=== PATIENT | male | born 1970 | race Caucasian/White ===

== ENCOUNTER 2021-03-22 05:58 | Outpatient (REF) | payer BC, SELFPAY ==
[2021-03-22 07:08] LABS: Alanine Aminotransferase 27 U/L (0-40); Albumin Level 4.6 g/dL (3.5-5.0); Alkaline Phosphatase 57 U/L (39-117); Anion Gap 15 (12-20); Aspartate Amino Transferase 21 U/L (5-37); Bilirubin Total 0.5 mg/dL (0.0-1.0); Blood Urea Nitrogen 10 mg/dL (9-16); Calcium 9.8 mg/dL (8.4-10.2); Carbon Dioxide 24 mmol/L (22-29); Chloride 104 mmol/L (96-108); Cholesterol 128 mg/dL; Estimated Glomerular Filt Rate > 60; Glucose Fasting 145 mg/dL (60-99); HDL Cholesterol 47 mg/dL; LDL Cholesterol Calculated 36 mg/dl; Potassium 4.4 mmol/L (3.3-5.1); Sodium 139 mmol/L (135-145); Total Protein 8.1 g/dL (6.5-8.0); Triglycerides 227 mg/dL
[2021-03-22 13:36] LABS: Creatinine Urine 156.12 mg/dL; Microalbum/Creatinine Ratio Ur 19.8 ug/mg cr
[2021-03-26 13:37] LABS: Vitamin D 25-OH, D2 <4 ng/mL; Vitamin D 25-OH, D3 38 ng/mL; Vitamin D 25-OH, Total 38 ng/mL (30-100)
== END 2021-03-22 05:59 | disposition home or self-care (01) ==
LOC: HO.LAB 05:58
PROVIDERS: PCP Internal Medicine; Visit Provider Internal Medicine
DX: E11.9 Type 2 diabetes mellitus without complications (principal); E78.5 Hyperlipidemia, unspecified; E55.9 Vitamin D deficiency, unspecified
CPT/HCPCS: 36415; 80053; 80061; 82043; 82306

== ENCOUNTER → 2021-10-22 13:18 | Outpatient (BNVA) | payer BC, SELFPAY | PROVIDERS: PCP Internal Medicine; Referring Provider Internal Medicine; Visit Provider Nurse Practitioner Family ==

== ENCOUNTER 2021-11-27 07:48 | Day surgery (SDC) | payer BC, SELFPAY ==
--- NOTE | 2021-11-26 10:07 | HO.ANESPROP2 ---
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 Mother No problems noted. Surgical History Surgical History (Updated 11/21/21 @ 15:18 by Patsy Singh RN) H/O vascular surgery S/P CABG x 3 Status post right knee replacement Social History Social History Housing: Apartment Alcohol intake: current Alcohol intake frequency: does not drink Alcohol type: beer Patient Tobacco Use Status: Never used Tobacco e-Cigarette/Vaping Use: Never Used Second Hand Smoke Exposure: No Are you DNR?: No Advance Directives: No Advance Directives Information Provided: Yes service: Yes Current occupational status: employed Current occupational exposures/hazards: No Meds Allergies Allergy/AdvReac Type Severity Reaction Status Date / Time No Known Allergies Allergy Verified 10/22/21 13:27 Home Medications Medication Instructions Recorded Confirmed Last Taken Type cilostazol 50 mg tablet 50 mg PO BID 10/22/21 Unknown History Exam Exam Date and Time: November 26, 2021 1007 Narrative Narrative: EKG 11/2021 NSR @ 78, high lateral ST abn (no change from 2018) Assessment and Plan Assessment Anesthesia Assessment: Chart Reviewed Documented by User: Gary Del Real MD 11/27/21 09:39 [facility] Past Medical History Medical History CAD (coronary artery disease) Diabetes mellitus Dyslipidemia Essential hypertension GERD (gastroesophageal reflux disease) 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 Mother No problems noted. Family history of problems with anesthesia: No Surgical History Surgical History (Updated 11/21/21 @ 15:18 by Patsy Singh RN) H/O vascular surgery S/P CABG x 3 Status post right knee replacement History of Problems with Anesthesia: No Social History Social History Housing: Apartment Alcohol intake: current Alcohol intake frequency: does not drink Alcohol type: beer Patient Tobacco Use Status: Never used Tobacco e-Cigarette/Vaping Use: Never Used Second Hand Smoke Exposure: No Are you DNR?: No Advance Directives: No Advance Directives Information Provided: Yes service: Yes Current occupational status: employed Current occupational exposures/hazards: No Meds Allergies Allergy/AdvReac Type Severity Reaction Status Date / Time No Known Allergies Allergy Verified 10/22/21 13:27 Home Medications Medication Instructions Recorded Confirmed Last Taken Type cilostazol 50 mg tablet 50 mg PO BID 10/22/21 Unknown History Exam Airway Mallampati Class: III TM Dist: >3cm Neck ROM: Full Assessment and Plan Assessment Anesthesia Assessment: Anesthesia Plan Discussed Final Anesthetic Review Family History of Problems with Anesthesia: No History of Problems with Anesthesia: No NPO: Yes ASA Class: III Final Preanesthetic Review: No Changes in Pt Med Stat, Meds/Allgs Chart Reviewed, Consent Obtained/Reviewed and Anes Risks/Benef Reviewed Patient Risk: Intermediate Procedure Risk: Low Anesthetic Plan Anesthetic Plan: GA Disposition: Standard PACU
[2021-11-27 08:18] VITALS: BMI 31.9
[2021-11-27 08:31] VITALS: BP 150/87; PULSE 81; RESP 19; TEMP 36.6; O2SAT 97
[2021-11-27 08:37] LABS: Glucose, Whole Blood 193 mg/dL (60-115)
[2021-11-27] MEDS: Lactated Ringers 1,000 ML 100 ML IVCONT (08:40)
--- NOTE | 2021-11-27 09:09 | MHC.SHP ---
Pre-Procedural Eval Section A Date of Service: 11/27/21 Section B Chief Complaint: Screening Relevant Family History (Specify if Yes): No Relevant Social History: None Present Medications: see Short Stay Collaborative assessment Medical History: Significant History (CAD (coronary artery disease) Diabetes mellitus Dyslipidemia Essential hypertension GERD (gastroesophageal reflux disease) detention (current) use of insulin Neuropathy TOBY on CPAP Peripheral arterial disease) History of Previous Operations: Relevant previous surgery/procedure and date(s) (H/O vascular surgery S/P CABG x 3 Status post right knee replacement) Allergies: Allergies Allergy/AdvReac Type Severity Reaction Status Date / Time No Known Allergies Allergy Verified 10/22/21 13:27 Review of Systems Sugical H&P ROS: Negative: Constitution, Cardiovascular, Respiratory, Neurological, Psychiatric, Hem-Onc, Allergic/Immunologic, Gastrointestinal, Genitourinary, Musculoskeletal, Integumentary, Endocrine and Eyes/Ears/Nose/Throat Exam Surgical H&P Exam: Normal: HEENT, Normal: Heart, Normal: Lungs, Normal: Extremities, Normal: Abdomen, Normal: Skin and Normal: Neurological Plan Diagnosis/Plan: Unchanged I have reviewed the history and physical and performed a pertinent physical examination on my patient. No changes have occurred unless specified.
--- NOTE | 2021-11-27 09:10 | P.BOP_ITS ---
Brief Operative Note Date of Service: 11/27/21 Pre-op diagnosis: colon screening Post-op diagnosis: same Procedure: see op note Surgeon: Jose Alberto MD Anesthesia: MAC Was an Management Advisor used for this Procedure?: No Estimated blood loss (mL): 0 Condition: stable Disposition: PACU
--- NOTE | 2021-11-27 09:10 | W.PM.OPN ---
Operative Note Operative Note Date of Service: 11/27/21 Narrative: Operative Information Procedure Description: Colonoscopy COLONOSCOPY Instrument: Olympus variable stiffness adult scope 190L Colonoscopy Monitoring: Vital signs and clinical assessment, continuous EKG monitoring, Pulse oximetry, Carbon Dioxide monitoring and blood pressure monitoring were done throughout the procedure. Colon withdrawal time was 27 minutes. Procedure: The patient was placed in the left lateral decubitis position and pre-procedure medications were administered. After a digital rectal examination of the ano-rectum, the video colonoscope was inserted into the rectum and advanced through the colon to the cecum/TI. The colonoscope was slowly withdrawn in a retrograde panoramic fashion and the colon mucosa was carefully examined including a retroflexed view of the rectum. Findings and interventions are described below. Procedure Difficulty: easy Findings: Terminal Ileum-normal Cecum:normal Ascending Colon: normal Transverse Colon -normal Descending Colon:normal Sigmoid Colon: normal Rectum: Retroflexion with small internal hemorrhoids, grade I, x 1 flat polyp 11-12 mm, raised with ORISE and then removed with cold snare with 3 clips applied for hemostasis. Another 10 mm sessile polyp removed with cold snare. Anorectum - normal Colon preparation: Adrian Bowel Preparation Scale Right colon; 2 Transverse colon: 3 Left colon; 2 (0 = Unprepared colon segment with mucosa not seen due to solid stool that cannot be cleared. 1 = Portion of mucosa of the colon segment seen, but other areas of the colon segment not well seen due to staining, residual stool and/or opaque liquid. 2 = Minor amount of residual staining, small fragments of stool and/or opaque liquid, but mucosa of colon segment seen well. 3 = Entire mucosa of colon segment seen well with no residual staining, small fragments of stool or opaque liquid) Impression and Post Procedure Diagnosis: polyps internal hemorrhoids Plan: High fiber diet leaflet Avoid straining at stool, epsom salts and sitz bath, anusol supps or cream Repeat Colonoscopy in 3-5 years if adenomatous polyps, 10 yrs if hyperplastic or earlier if clinically indicated Above findings were reviewed with the patient and relevant handouts were provided if indicated.
[2021-11-27 10:16] VITALS: BP 155/75; PULSE 76; RESP 16; TEMP 36.2; O2SAT 97
[2021-11-27 10:32] VITALS: BP 144/76; PULSE 76; RESP 18; TEMP 36.2; O2SAT 98
== END 2021-11-27 11:01 | disposition home or self-care (01) ==
PROVIDERS: PCP Internal Medicine; Visit Provider Internal Medicine Gastroenterology
PROC: 0DJD8ZZ Inspection of Lower Intestinal Tract, Via Natural or Artificial Opening Endoscopic (ICD-10-PCS; CPT 45378; principal; 2021-11-27 09:20)
DX: Z12.11 Encounter for screening for malignant neoplasm of colon (principal); K62.1 Rectal polyp; K64.0 First degree hemorrhoids; I10 Essential (primary) hypertension; I25.810 Atherosclerosis of coronary artery bypass graft(s) without angina pectoris; I73.9 Peripheral vascular disease, unspecified; Z95.1 Presence of aortocoronary bypass graft; E78.5 Hyperlipidemia, unspecified; G47.33 Obstructive sleep apnea (adult) (pediatric); E11.9 Type 2 diabetes mellitus without complications; Z79.4 Long term (current) use of insulin; Z79.82 Long term (current) use of aspirin; Z79.02 Long term (current) use of antithrombotics/antiplatelets; Z79.899 Other long term (current) drug therapy; Z99.89 Dependence on other enabling machines and devices; Z96.651 Presence of right artificial knee joint
CPT/HCPCS: 45385; 45381; 82947; 88305

== ENCOUNTER → 2021-12-12 08:25 | Outpatient (BNVA) | payer BC, SELFPAY | PROVIDERS: PCP Internal Medicine; Referring Provider Internal Medicine; Visit Provider Nurse Practitioner Family | DX: Z13.89 Encounter for screening for other disorder (principal) ==

== ENCOUNTER 2022-04-23 07:29 | Outpatient (REF) | payer BC, SELFPAY ==
[2022-04-23 08:18] LABS: Alanine Aminotransferase 18 U/L (0-40); Albumin Level 4.8 g/dL (3.5-5.0); Alkaline Phosphatase 60 U/L (39-117); Anion Gap 16 (12-20); Aspartate Amino Transferase 18 U/L (5-37); Bilirubin Total 0.6 mg/dL (0.0-1.0); Blood Urea Nitrogen 10 mg/dL (9-16); Calcium 9.8 mg/dL (8.4-10.2); Carbon Dioxide 27 mmol/L (22-29); Chloride 104 mmol/L (96-108); Cholesterol 135 mg/dL; Estimated Glomerular Filt Rate > 60; Glucose Fasting 99 mg/dL (60-99); HDL Cholesterol 46 mg/dL; LDL Cholesterol Calculated 58 mg/dl; Potassium 4.2 mmol/L (3.3-5.1); Sodium 143 mmol/L (135-145); Total Protein 8.2 g/dL (6.5-8.0); Triglycerides 157 mg/dL
[2022-04-23 09:28] LABS: Creatinine Urine 94.99 mg/dL; Microalbum/Creatinine Ratio Ur 10.5 ug/mg cr
[2022-04-27 12:51] LABS: Vitamin D 25-OH, D2 <4 ng/mL; Vitamin D 25-OH, D3 45 ng/mL; Vitamin D 25-OH, Total 45 ng/mL (30-100)
== END 2022-04-23 07:30 | disposition home or self-care (01) ==
LOC: HO.LAB 07:29
PROVIDERS: PCP Internal Medicine; Visit Provider Internal Medicine
DX: E78.5 Hyperlipidemia, unspecified (principal); E55.9 Vitamin D deficiency, unspecified; E11.9 Type 2 diabetes mellitus without complications; Z79.4 Long term (current) use of insulin
CPT/HCPCS: 36415; 80053; 80061; 82043; 82306

== ENCOUNTER → 2022-09-20 06:12 | Outpatient (REF) | payer BC, SELFPAY ==
--- NOTE | ~2022-09-20 | XR_ITS ---
EXAMINATION: XR CHEST CLINICAL INFORMATION: Dyspnea COMPARISON: None TECHNIQUE: 2 views of the chest were obtained. FINDINGS: Low lung volumes. No focal consolidation or mass. No pleural effusion or pneumothorax. Sternal wires and mediastinal vascular clips. Multilevel degenerative changes of the thoracic spine. XR/XR chest 2V IMPRESSION: No acute pulmonary disease.
[2022-09-20 07:59] LABS: Creatinine Urine 44.68 mg/dL; Microalbum/Creatinine Ratio Ur 11.1 ug/mg cr
--- NOTE | 2022-09-20 08:15 | CA_ITS ---
Transthoracic Echocardiogram Patient (Last, First, Middle): Ricardo Farr H Gender: Male Date of : 1970 Age: 52 Procedure Date: 09/20/2022 Procedure Type: Transthoracic Echocardiogram Location: OP Height: 172.72 cm Weight: 95.26 kg BSA: 2.09 m2 Heart Rate: 70 bpm BP: 120 / 70 mmHg Instructor Extension Work: SB Referring MD: Mary Eubanks MD Symptoms: R01.1 - Cardiac murmur, unspecified Study Quality: Adequate w contrast ECG Rhythm: Sinus Conclusions: - The left ventricular systolic function is normal. The calculated ejection fraction is 58% by biplane method. - There is moderate septal asymmetric hypertrophy. - The apex segment is akinetic. - No obvious valvular pathology seen on this study. Findings Procedure Information Contrast agent, definity, is being given per protocol without apparent complications. Left Ventricle Normal left ventricular cavity size. The left ventricular systolic function is normal. The calculated ejection fraction is 58% by biplane method. There is no evidence of regional wall motion abnormalities. Diastolic function is normal for age. There is moderate septal asymmetric hypertrophy. Wall Motion Rest Echo Findings The apex segment is akinetic. Right Ventricle Normal right ventricular cavity size. There is mildly decreased right ventricular systolic function. Atria Both atria are normal in size. Aortic Valve There is a normal trileaflet aortic valve. There is no aortic valve stenosis. There is no aortic valve regurgitation. Mitral Valve The mitral valve appears normal. There is no mitral valve regurgitation. There is no mitral valve stenosis. Pulmonic Valve The pulmonic valve is likely normal. Tricuspid Valve There is trace tricuspid valve regurgitation. There is no evidence of pulmonary hypertension. Great Vessels The asc aorta is normal in size. Venous The inferior vena cava is normal in size and collapses greater than 50% with inspiration. Pericardium/Pleural There is no evidence of pericardial effusion. Prior Study Comparison Changes noted compared to prior study dated: 02/08/2016. see comments on wall motion. Recommendations, Care & Conclusions No obvious valvular pathology seen on this study. Measurements 2D Linear Measurements IVSd: 1.45 0.6-0.9/0.6-1.0 cm LVIDd: 5.29 3.9-5.3/4.2-5.9 cm LVIDd Index: 2.53 2.4-3.2/2.2-3.1 cm/m2 LVIDs: 3.51 2.0-3.6 cm LVPWd: 0.81 0.7-1.1 cm LA Diam: 4.10 2.7-3.8/3.0-4.0 cm LAIDs Index: 1.96 1.5-2.3 cm/m2 LV Mass: 293.98 67-162/88-224 g LV Mass Index: 140.66 43-95/49-115 g/m2 LVOT Diam: 2.10 3.0+(-)1.3 cm 2D Systolic Function EF 4C: 64.30 >55% EF 2C: 51.40 >55% EF BiP: 58.30 >55% Mitral Valve MV Pk E: 0.64 MV PK A: 0.64 MV Decel Time: 228.00 E/A: 1.00 E'Lateral: 12.20 E'Medial: 7.72 E/E' Med: 8.30 E/E' Lat: 5.20 PHT: 67.00 MVA PHT: 3.28 Decel Bertie: 2.80 Aortic Valve AoV Pk Dimitrios: 1.42 AoV Pk Grad: 8.00 DYLAN: 2.63 LVOT LVOT Pk Dimitrios: 1.08 LVOT Mn Dimitrios: 0.69 LVOT VTI: 0.19 LVOT Pk Grad: 5.00 LVOT Mn Grad: 2.00 LVOT Diam: 2.10 LVOT Area: 3.46 Diastolic Function MV Pk E: 0.64 MV Pk A: 0.64 E/A: 1.00 E'Medial: 7.72 E/E' Med: 8.30 E' Laterial: 12.20 E/E' Lat: 5.20 Right Ventricle TAPSE (mm): 15.80 TVS' Dimitrios: 11.10 Tricuspid Valve TR Pk Dimitrios: 2.30 TR Pk Grad: 21.00 RA Press: 3.00 RVSP: 24.00 Great Vessels Aorta Sinus of Valsalva: 3.10 2.0-3.5 cm Ao Asc: 3.40 2.1-3.4 cm Pulmonary Veins Pulm Vein S/D 1.30 Pulmonary Valve PV Pk Dimitrios: 1.19 Peak PV Grad: 6.00 Updated in Other Vendor System with Status of Final Bryce House MD electronically signed on 09/21/2022 3:14:55 PM with status of Final
[2022-09-20 08:17] LABS: Alanine Aminotransferase 23 U/L (0-40); Albumin Level 4.4 g/dL (3.5-5.0); Alkaline Phosphatase 62 U/L (39-117); Anion Gap 14 (12-20); Aspartate Amino Transferase 21 U/L (5-37); Bilirubin Total 0.5 mg/dL (0.0-1.0); Blood Urea Nitrogen 8 mg/dL (9-16); Calcium 9.9 mg/dL (8.4-10.2); Carbon Dioxide 29 mmol/L (22-29); Chloride 103 mmol/L (96-108); Cholesterol 125 mg/dL; Estimated Glomerular Filt Rate > 60; Glucose Fasting 102 mg/dL (60-99); HDL Cholesterol 47 mg/dL; LDL Cholesterol Calculated 38 mg/dl; Sodium 142 mmol/L (135-145); Total Protein 7.9 g/dL (6.5-8.0); Triglycerides 200 mg/dL
[2022-09-20 08:22] LABS: Vitamin D 25-OH Total 30.7 ng/mL (>30)
== END ==
LOC: HO.CARD 06:12
PROVIDERS: PCP Internal Medicine; Visit Provider Internal Medicine
DX: R01.1 Cardiac murmur, unspecified (principal); R06.00 Dyspnea, unspecified; E78.5 Hyperlipidemia, unspecified; E55.9 Vitamin D deficiency, unspecified; E11.9 Type 2 diabetes mellitus without complications; Z79.4 Long term (current) use of insulin
CPT/HCPCS: 36415; 71046; 80053; 80061; 82043; 82306; 93306; Q9957

== ENCOUNTER 2023-01-07 06:07 | Outpatient (REF) | payer BC, SELFPAY ==
[2023-01-07 08:18] LABS: Alanine Aminotransferase 21 U/L (0-40); Albumin Level 4.3 g/dL (3.5-5.0); Alkaline Phosphatase 59 U/L (39-117); Anion Gap 14 (12-20); Aspartate Amino Transferase 18 U/L (5-37); Bilirubin Total 0.8 mg/dL (0.0-1.0); Blood Urea Nitrogen 8 mg/dL (9-16); Calcium 9.2 mg/dL (8.4-10.2); Carbon Dioxide 27 mmol/L (22-29); Chloride 103 mmol/L (96-108); Cholesterol 121 mg/dL; Estimated Glomerular Filt Rate > 60; Glucose Fasting 159 mg/dL (60-99); HDL Cholesterol 43 mg/dL; LDL Cholesterol Calculated 32 mg/dl; Potassium 4.3 mmol/L (3.3-5.1); Sodium 140 mmol/L (135-145); Total Protein 7.4 g/dL (6.5-8.0); Triglycerides 233 mg/dL
[2023-01-07 09:27] LABS: Creatinine Urine 39.81 mg/dL; Microalbum/Creatinine Ratio Ur 17.5 ug/mg cr
== END 2023-01-07 06:08 | disposition home or self-care (01) ==
LOC: HO.LAB 06:07
PROVIDERS: PCP Internal Medicine; Visit Provider Internal Medicine
DX: E11.9 Type 2 diabetes mellitus without complications (principal); E78.5 Hyperlipidemia, unspecified; Z79.4 Long term (current) use of insulin
CPT/HCPCS: 36415; 80053; 80061; 82043

== ENCOUNTER 2023-06-19 16:51 | Outpatient (AMB) | payer BC, SELFPAY ==
--- NOTE | 2023-06-19 16:53 | MHC.PC.OV ---
Vital Signs 06/19/23 16:54 06/19/23 17:52 Height 5 ft 8 in Weight 214 lb BMI 32.5 BP 162/100 H 160/90 H Blood Pressure Location Lt brachial Lt brachial Position Sitting Sitting Intake Visit Reasons: 3m f/u Intake Note: Patient here for a 3 month follow up Style Advisor Required: No Accompanied by: Self / Same As Patient Allergies No Known Allergies Allergy (Verified 06/19/23 17:06) Medication List - Last Reconciled 06/19/23 by Mary Eubanks MD aspirin (Adult Low Dose Aspirin) 81 mg PO DAILY 90 days blood sugar diagnostic (OneTouch Ultra Test strips) Use 1 test strip three times a day carvedilol 6.25 mg PO BID 90 days cilostazol 50 mg PO BID 90 days clopidogrel 75 mg PO DAILY 90 days gabapentin 100 mg PO BID PRN 90 days glipizide ER 2.5 mg PO BID 90 days insulin glargine (Lantus Solostar U-100 Insulin) 57 units (0.57 mL) subcut DAILY 90 days lancets (ShoutfitTouch UltraSoft Lancets) Use 1 lancet three times a day losartan 50 mg PO DAILY 90 days metformin 1,000 mg PO BID 90 days omeprazole 20 mg PO DAILY 90 days pen needle, diabetic Use 1 pen needle once a day rosuvastatin 20 mg PO BEDTIME 90 days Tobacco use date assessed: 01/14/23 Dental Screening Dental Screen Date: 06/19/23 Did you have a dental visit in the last 12 months?: Yes Did you have a dental problem in the last 6 months where you did not have access to dental care?: No Was dental information given to patient?: Patient has dentist HPI HPI Comments History of Present Illness Details This is a 53-year-old male with diabetes mellitus type 2 on long-term current use of insulin, hypertension, hyperlipidemia, systolic congestive heart failure and peripheral arterial disease that comes today for follow-up on his conditions. A1c slightly elevated and I will increase insulin from 57 units to 60 units. Blood pressure elevated today and he did took his medication. He said that at home blood pressure is less than 140/90. He will be checking his blood pressure at home for the next 2 weeks and will contact me to let me know how the readings where. He does not want to come back in 3 weeks to be recheck by nurse navigator. Last LDL was within goal. Congestive heart failure is follow by cardiology and has not gain 5 lb in a week. Has peripheral arterial disease follow by vascular surgeon on cilostazol. No chest pain or shortness of breath. [facility] Medical History (Updated 06/20/23 @ 12:48 by Mary Eubanks MD) Internal hemorrhoid TOBY on CPAP Neuropathy detention (current) use of insulin CAD (coronary artery disease) Peripheral arterial disease Dyslipidemia GERD (gastroesophageal reflux disease) Essential hypertension Diabetes mellitus Surgical History Hx of colonoscopy H/O vascular surgery Status post right knee replacement S/P CABG x 3 Family History Father No problems noted. Mother No problems noted. Social History Housing: Apartment Alcohol intake: current Alcohol intake frequency: holidays/special occasions only Alcohol type: beer Patient Tobacco Use Status: Never used Tobacco e-Cigarette/Vaping Use: Never Used Second Hand Smoke Exposure: No service: Yes Current occupational status: employed Current occupational exposures/hazards: No Cognitive needs: No Hearing needs: No Vision needs: No Questionnaire Thrive Questionnaire Date Thrive assessed: 01/14/23 CHAVA-7 AMB Questionnaire CHAVA-7 Date CHAVA - 7 assessed: 01/14/23 Source: Developed by Drs. Sachin Muhammad, Sun Gallo, Srinivas Knott and colleagues, with an educational constantine from [employer]. Review of Systems Const All systems reviewed & are unremarkable except as noted in HPI and below Eyes Reports no additional complaints, Denies change in vision and Denies other visual disturbances Card Denies chest pain at rest, Denies chest pain with activity, Denies edema, Denies irregular heart rhythm, Denies claudication, Denies dyspnea, Denies dyspnea on exertion, Denies orthopnea, Denies paroxysmal nocturnal dyspnea and Denies slow heart rate Resp Denies cough, Denies dyspnea and Denies dyspnea on exertion GI Denies abdominal pain, Denies change in bowel habits, Denies excessive flatus, Denies nausea and Denies vomiting Denies urinary hesitancy, Denies urinary incontinence and Denies urinary urgency Musc Denies abnormal gait, Denies atrophy, Denies deformity and Denies limited range of motion Skin/Breast Denies bleeding lesions, Denies changing lesions and Denies rash Neuro Denies abnormal gait and Denies lack of coordination Physical exam (Primary Care) Vital Signs: Last Vital Signs BP 160/90 H 06/19/23 17:52 BMI result Body Mass Index 32.5 Tobacco/Smoking Status: Tobacco use Status Tobacco use date assessed 01/14/23 06/19/23 16:58 Patient Tobacco Use Status Never used Tobacco 06/19/23 16:58 e-Cigarette/Vaping Use Never Used 06/19/23 16:58 Thrive Assessment: Date of Thrive Assessment Date Thrive assessed 01/14/23 06/19/23 16:58 Eyes General: appearance normal, both eyes and all related structures Eyelids: Yes eyelids normal Conjunctivae: conjunctivae normal Neck Neck: Yes normal visual inspection and Yes supple Resp Effort & Inspection: normal respiratory effort Auscultation: clear to auscultation bilaterally Cardio Jugular venous distension: no JVD Rate: regular rate Rhythm: regular rhythm Heart sounds: S1 normal heart sound present and S2 normal heart sound present Extrem General: Yes full ROM Results AMB Hemoglobin A1c AMB Hemoglobin A1c 7.2 % Last Edit by QUINTON Winston on 06/19/23 17:07 Results Reviewed Results Reviewed: Laboratory Last Values Hgb A1c (Clinic) 7.2 % (4.0-6.0) H 06/19/23 17:06 Assessment and Plan Assessment & Plan (1) Systolic congestive heart failure: Code(s): I50.20 - Unspecified systolic (congestive) heart failure Plan: Continue carvedilol. Follow-up with Cardiology. The goal is to not gain 5 lb in a week. (2) Peripheral arterial disease: Code(s): I73.9 - Peripheral vascular disease, unspecified Plan: Continue cilostazol. Follow-up with vascular surgery. (3) Diabetes mellitus: Code(s): E11.9 - Type 2 diabetes mellitus without complications Qualifiers: Diabetes mellitus type: type 2 Diabetes mellitus long-term insulin use: with range conservationist use Diabetes mellitus complication status: without complication Qualified Code(s): E11.9 - Type 2 diabetes mellitus without complications; Z79.4 - detention (current) use of insulin Plan: Continue glipizide and metformin. Increase insulin from 57 units to 60 units. A1c goal is equal or less than 7%. (4) Essential hypertension: Code(s): I10 - Essential (primary) hypertension Plan: Continue losartan. Blood pressure goal is equal or less than 130/80. (5) Hyperlipidemia LDL goal <70: Code(s): E78.5 - Hyperlipidemia, unspecified Plan: Continue rosuvastatin. LDL goal is less than 70 P Orders: Orders AMB Hemoglobin A1c 06/19/23 E11.9 - Type 2 diabetes mellitus without complications Lipid Panel 4 Months E78.5 - Hyperlipidemia, unspecified Microalbumin, Random (w Creat) 4 Months E11.9 - Type 2 diabetes mellitus without complications NT-proBNP 4 Months I50.20 - Unspecified systolic (congestive) heart failure Comprehensive [place]. Panel Fast 4 Months I50.20 - Unspecified systolic (congestive) heart failure Referrals Orthopedics Referral M25.552 - Pain in left hip Medications: Changed From insulin glargine (Lantus Solostar U-100 Insulin) 57 units (0.57 mL) subcut DAILY 90 days 51.3 mL 3RF E11.9 - Type 2 diabetes mellitus without complications, Z79.4 - [employer] stitcher (current) use of insulin To insulin glargine (Lantus Solostar U-100 Insulin) 60 units (0.6 mL) subcut DAILY 90 days 54 mL 3RF E11.9 - Type 2 diabetes mellitus without complications, Z79.4 - detention (current) use of insulin Coding Level of Care Code Est Pt Level 4 (91235) Diagnoses Systolic congestive heart failure I50.20 Peripheral arterial disease I73.9 Type 2 diabetes mellitus without complication, with long-term current use of insulin E11.9; Z79.4 Diabetes mellitus type: type 2 Diabetes mellitus long-term insulin use: with long-term use Diabetes mellitus complication status: without complication Essential hypertension I10 Hyperlipidemia LDL goal <70 E78.5 Time Spent (min) 23
[2023-06-19 16:54] VITALS: BP 162/100; BMI 32.5
[2023-06-19 17:52] VITALS: BP 160/90
== END 2023-06-19 17:36 | disposition home or self-care (01) ==
PROVIDERS: PCP Internal Medicine; Visit Provider Internal Medicine
DX: E11.9 Type 2 diabetes mellitus without complications (principal)
CPT/HCPCS: 83036; 99214

== ENCOUNTER 2023-10-20 09:15 | Outpatient (AMB) | payer BC, SELFPAY ==
--- NOTE | 2023-10-20 09:37 | MHC.PC.OV ---
Vital Signs 10/20/23 09:39 10/20/23 10:51 Height 5 ft 8 in Weight 215 lb BMI 32.7 BP 146/80 H 145/80 H Blood Pressure Location Lt brachial Lt brachial Position Sitting Sitting Intake Visit Reasons: Annual Exam Intake Note: Patient here for an annual physical exam Passenger Car Inspector Required: No Accompanied by: Self / Same As Patient Allergies No Known Allergies Allergy (Verified 10/20/23 09:51) Medication List - Last Reconciled 10/20/23 by Mary Eubanks MD aspirin (Adult Low Dose Aspirin) 81 mg PO DAILY 90 days blood sugar diagnostic ([employer] Ultra Test strips) Use 1 test strip three times a day carvedilol 6.25 mg PO BID 90 days cilostazol 50 mg PO BID 90 days clopidogrel 75 mg PO DAILY 90 days gabapentin 100 mg PO BID PRN 90 days glipizide ER 2.5 mg PO BID 90 days insulin glargine (Lantus Solostar U-100 Insulin) 60 units (0.6 mL) subcut DAILY 90 days lancets Use 1 lancet three times a day losartan 50 mg PO DAILY 90 days metformin 1,000 mg PO BID 90 days omeprazole 20 mg PO DAILY 90 days pen needle, diabetic Use 1 pen needle once a day rosuvastatin 20 mg PO BEDTIME 90 days Tobacco use date assessed: 10/20/23 Dental Screening Dental Screen Date: 10/20/23 Did you have a dental visit in the last 12 months?: Yes Did you have a dental problem in the last 6 months where you did not have access to dental care?: No Was dental information given to patient?: Patient has dentist HPI HPI Comments History of Present Illness Details This is a 53-year-old male with diabetes mellitus type 2 on long-term current use of insulin, systolic congestive heart failure and peripheral arterial disease that comes today for his physical exam. A1c elevated and I will replace glipizide with Jardiance. He follows with cardiology for his congestive heart failure and has not gain 5 lb in a week. Had vascular surgery in July 2023 which has markedly improved his symptoms. Blood pressure elevated today and will be recheck in 3 weeks by nurse navigator. Last colonoscopy was 2021 showing hyperplastic polyp. No chest pain. REPLACED BY [facility] Medical History (Updated 10/20/23 @ 10:05 by Mary Eubanks MD) Internal hemorrhoid TOBY on CPAP Neuropathy FDC (current) use of insulin CAD (coronary artery disease) Peripheral arterial disease Dyslipidemia GERD (gastroesophageal reflux disease) Essential hypertension Diabetes mellitus Surgical History (Updated 10/20/23 @ 09:58 by Mary Eubanks MD) Hx of colonoscopy H/O vascular surgery Status post right knee replacement S/P CABG x 3 Family History Father No problems noted. Mother No problems noted. Social History Housing: Apartment Alcohol intake: current Alcohol intake frequency: holidays/special occasions only Alcohol type: beer Patient Tobacco Use Status: Never used Tobacco e-Cigarette/Vaping Use: Never Used Second Hand Smoke Exposure: No service: Yes Current occupational status: employed Current occupational exposures/hazards: No Cognitive needs: No Hearing needs: No Vision needs: No Questionnaire PHQ-9 Over the last 2 weeks, how often have you been bothered by any of the following problems? 1. Little interest or pleasure in doing things: not at all 2. Feeling down, depressed, or hopeless: not at all 3. Trouble falling or staying asleep, or sleeping too much: not at all 4. Feeling tired or having little energy: not at all 5. Poor appetite or overeating: not at all 6. Feeling bad about yourself - or that you are a failure or have let yourself or your family down: not at all 7. Trouble concentrating on things, such as reading the newspaper or watching television: not at all 8. Moving or speaking so slowly that other people could have noticed. Or the opposite - being so fidgety or restless that you have been moving around a lot more than usual: not at all 9. Thoughts that you would be better off or of hurting yourself in some way: not at all Total score: 0 Depression Screening Interpretation: Negative Depression Screening Done: Yes 17513 - PHQ-9 Billing: Yes Source: Developed by Drs. Sachin Muhammad, Sun Gallo, Srinivas Knott and colleagues, with an educational constantine from [employer]. Thrive Questionnaire Date Thrive assessed: 10/20/23 I am a: Patient What is your living situation today?: I have a steady place to live Within the past 12 months, did the food you bought not last and you didn't have the money to get more?: Never true Within the past 12 months, did you worry whether your food would run out before you got money to buy more?: Never true Do you have trouble paying for medicines?: No Do you have trouble getting transportation to medical appointments?: No Do you have trouble paying your heating and electricity bill?: No Do you have trouble taking care of your child, family member or friend?: No Do you have trouble with day-to-day activities such as bathing, preparing meals, shopping, managing finances, etc.?: No Are you currently unemployed and looking for a job?: No Are you interested in more education?: No Please select the resources that you would like help with: None Currently or been in a relationship where the following occur: no concerns reported THRIVE Score: 0 AUDIT C Alcohol Use Questionnaire (AUDIT-C) 1. How often do you have a drink containing alcohol?: Monthly or less 2. How many drinks containing alcohol do you have on a typical day when you are drinking?: 1 or 2 3. How often do you have six or more drinks on one occasion?: Never Total Score: 1 Score Reviewed/Action Taken: No CHAVA-7 AMB Questionnaire CHAVA-7 Date CHAVA - 7 assessed: 10/20/23 Feeling nervous, anxious, or on edge: 0 = Not at all Not being able to stop or control worryin = Not at all Worrying too much about different things: 0 = Not at all Trouble relaxin = Not at all Being so restless that it is hard to sit still: 0 = Not at all Becoming easily annoyed or irritable: 0 = Not at all Feeling afraid as if something awful might happen: 0 = Not at all Total CHAVA-7 score (0-4 normal; 5-9 mild; 10-14 moderate; 15-21 severe): 0 Source: Developed by Drs. Sachin Muhammad, Sun Gallo, Srinivas Knott and colleagues, with an educational constantine from [employer]. CHAVA-7 Assessment Billing CHAVA-7 Assessment Tool: CHAVA-7 Assessment 01393 Review of Systems Const All systems reviewed & are unremarkable except as noted in HPI and below Eyes Reports no additional complaints, Denies change in vision and Denies other visual disturbances Card Denies chest pain at rest, Denies chest pain with activity, Denies edema, Denies irregular heart rhythm, Denies claudication, Denies dyspnea, Denies dyspnea on exertion, Denies orthopnea, Denies paroxysmal nocturnal dyspnea and Denies slow heart rate Resp Denies cough, Denies dyspnea and Denies dyspnea on exertion GI Denies abdominal pain, Denies change in bowel habits, Denies excessive flatus, Denies nausea and Denies vomiting Denies urinary hesitancy, Denies urinary incontinence and Denies urinary urgency Musc Denies abnormal gait, Denies atrophy, Denies deformity and Denies limited range of motion Skin/Breast Denies bleeding lesions, Denies changing lesions and Denies rash Neuro Denies abnormal gait, Denies behavioral changes, Denies confusion and Denies lack of coordination Psych Denies behavioral changes and Denies confusion Physical exam (Primary Care) Vital Signs: Last Vital Signs BP 145/80 H 10/20/23 10:51 BMI result Body Mass Index 32.7 Tobacco/Smoking Status: Tobacco use Status Tobacco use date assessed 10/20/23 10/20/23 09:50 Patient Tobacco Use Status Never used Tobacco 10/20/23 09:50 e-Cigarette/Vaping Use Never Used 10/20/23 09:50 PHQ-9: PHQ-9 Score PHQ-9: Total score 0 10/20/23 10:52 Depression Screening Interpretation: Negative Thrive Assessment: Date of Thrive Assessment Date Thrive assessed 10/20/23 10/20/23 09:50 Currently or been in a relationship where the following occur: no concerns reported Const General: No confusion Orientation/consciousness: patient oriented x3 and No confusion HENMT Head: Yes normal to inspection, Yes normocephalic and Yes atraumatic Ears: external ears normal Eyes General: appearance normal, both eyes and all related structures Eyelids: Yes eyelids normal Conjunctivae: conjunctivae normal Neck Neck: Yes normal visual inspection and Yes supple Resp Effort & Inspection: normal respiratory effort Auscultation: clear to auscultation bilaterally Cardio Jugular venous distension: no JVD Rate: regular rate Rhythm: regular rhythm Heart sounds: S1 normal heart sound present and S2 normal heart sound present GI Inspection: Yes normal to inspection Palpation (GI): Soft to palpation and nontender Auscultation: normal bowel sounds Skin General skin exam: no rashes or lesions noted Neuro General: patient oriented x3, no focal motor deficits and No confusion Extrem General: Yes full ROM Psych Appearance: grossly normal Results AMB Hemoglobin A1c AMB Hemoglobin A1c 7.2 % Last Edit by QUINTON Winston on 10/20/23 09:50 Results Reviewed Results Reviewed: Laboratory Last Values Hgb A1c (Clinic) 7.2 % (4.0-6.0) H 10/20/23 09:37 Assessment and Plan Assessment & Plan (1) Physical exam: Code(s): Z00.00 - Encounter for general adult medical examination without abnormal findings Plan: Repeat in a year. (2) Systolic congestive heart failure: Code(s): I50.20 - Unspecified systolic (congestive) heart failure Plan: Continue carvedilol. Follow-up with Cardiology. The goal is to not gain 5 lb in a week. (3) Peripheral arterial disease: Code(s): I73.9 - Peripheral vascular disease, unspecified Plan: Continue cilostazol. Follow-up with vascular surgery. (4) Diabetes mellitus: Code(s): E11.9 - Type 2 diabetes mellitus without complications Qualifiers: Diabetes mellitus type: type 2 Diabetes mellitus senior living insulin use: with marine oil terminal superintendent use Diabetes mellitus complication status: without complication Qualified Code(s): E11.9 - Type 2 diabetes mellitus without complications; Z79.4 - terminal operator (current) use of insulin Plan: Continue insulin. Continue metformin. Discontinue glipizide. Start Jardiance. A1c goal is equal or less than 7%. Orders: Orders AMB Hemoglobin A1c Today E11.9 - Type 2 diabetes mellitus without complications NE nerve conduction velocity Today R20.2 - Paresthesia of skin XR shoulder RT min 2V Today M25.511 - Pain in right shoulder Medications: New empagliflozin (Jardiance) 10 mg PO DAILY 90 tabs 1RF 90 days Discontinued glipizide ER Discontinued Reason: Patient Completed Course 2.5 mg PO BID 90 days 450 tabs 3RF 2 tabs at am and 3 tabs at pm Coding Level of Care Code Est Pt Prev Care 40-64y(25265) Diagnoses Physical exam Z00.00 Systolic congestive heart failure I50.20 Peripheral arterial disease I73.9 Type 2 diabetes mellitus without complication, with long-term current use of insulin E11.9; Z79.4 Diabetes mellitus type: type 2 Diabetes mellitus senior living insulin use: with marine oil terminal superintendent use Diabetes mellitus complication status: without complication Additional Codes CHAVA-7 Assessment Billing - CHVAA-7 Assessment Tool: CHAVA-7 Assessment 06234 ([id number]) Time Spent (min) 35
[2023-10-20 09:39] VITALS: BP 146/80; BMI 32.7
[2023-10-20 10:51] VITALS: BP 145/80
== END 2023-10-20 10:10 | disposition home or self-care (01) ==
PROVIDERS: PCP Internal Medicine; Visit Provider Internal Medicine
DX: Z00.00 Encounter for general adult medical examination without abnormal findings (principal); I50.20 Unspecified systolic (congestive) heart failure; I73.9 Peripheral vascular disease, unspecified; E11.51 Type 2 diabetes mellitus with diabetic peripheral angiopathy without gangrene; Z79.4 Long term (current) use of insulin
CPT/HCPCS: 83036; 99396

== ENCOUNTER 2023-11-06 08:00 | Outpatient (REF) | payer BC, SELFPAY ==
--- NOTE | 2023-11-06 08:15 | EMG_ITS ---
Bilateral median and ulnar motor and sensory studies were performed. Bilateral radial sensory studies were performed and paraspinal muscles were tested with a needle. IMPRESSION: 1. Moderate to severe right and mild to moderate left median neuropathy across carpal tunnel. 2. Mild bilateral ulnar neuropathy across cubital tunnel. MD WARREN Joe/GHADA / [id number]
== END 2023-11-06 08:01 | disposition home or self-care (01) ==
LOC: HO.NEURO 08:00
PROVIDERS: PCP Internal Medicine; Visit Provider Internal Medicine
DX: R20.2 Paresthesia of skin (principal)
CPT/HCPCS: 95886; 95911

== ENCOUNTER 2023-12-10 08:34 | Outpatient (REF) | payer BC, SELFPAY ==
[2023-12-10 09:55] LABS: Influenza A PCR POSITIVE (Negative); Influenza B PCR NEGATIVE (Negative); Resp Syncy Virus RNA Qual PCR NEGATIVE (Negative); SARS COV2 PCR INHOUSE NEGATIVE (Negative)
== END 2023-12-10 08:35 | disposition home or self-care (01) ==
LOC: HO.LAB 08:34
PROVIDERS: PCP Internal Medicine; Visit Provider Internal Medicine
DX: R09.89 Other specified symptoms and signs involving the circulatory and respiratory systems (principal)
CPT/HCPCS: 0241U

== ENCOUNTER 2024-02-26 06:02 | Outpatient (REF) | payer BC, SELFPAY ==
[2024-02-26 08:03] LABS: Alanine Aminotransferase 15 U/L (0-40); Albumin Level 4.3 g/dL (3.5-5.0); Alkaline Phosphatase 57 U/L (39-117); Anion Gap 13 (12-20); Aspartate Amino Transferase 17 U/L (5-37); Bilirubin Total 0.4 mg/dL (0.0-1.0); Blood Urea Nitrogen 11 mg/dL (9-16); Calcium 9.4 mg/dL (8.4-10.2); Carbon Dioxide 26 mmol/L (22-29); Chloride 105 mmol/L (96-108); Cholesterol 110 mg/dL (<200); Estimated Glomerular Filt Rate > 60; Glucose Fasting 93 mg/dL (60-99); HDL Cholesterol 41 mg/dL (>40); LDL Cholesterol Calculated 33 mg/dL (<100); Potassium 3.8 mmol/L (3.3-5.1); Sodium 140 mmol/L (135-145); Total Protein 7.7 g/dL (6.5-8.0); Triglycerides 181 mg/dL (<150)
[2024-02-26 09:04] LABS: Creatinine Urine 51.64 mg/dL; Microalbumin Urine < 5.0 mg/L
[2024-03-02 18:19] LABS: NT-proBNP 47 pg/mL (<125)
== END 2024-02-26 06:03 | disposition home or self-care (01) ==
LOC: HO.LAB 06:02
PROVIDERS: PCP Internal Medicine; Visit Provider Internal Medicine
DX: E11.9 Type 2 diabetes mellitus without complications (principal); Z79.4 Long term (current) use of insulin; I50.20 Unspecified systolic (congestive) heart failure; E78.5 Hyperlipidemia, unspecified
CPT/HCPCS: 36415; 80053; 80061; 82043; 82570; 83880

== ENCOUNTER 2024-03-04 08:00 | Outpatient (AMB) | payer BC, SELFPAY ==
[2024-03-04 08:22] VITALS: BP 142/80; BMI 31.9
--- NOTE | 2024-03-04 08:22 | A.OFFPC_ITS ---
Vital Signs 03/04/24 08:22 Height 5 ft 8 in Weight 210 lb BMI 31.9 BP 142/80 H Blood Pressure Location Lt brachial Position Sitting Intake Visit Reasons: dm Intake Note: Patient here for a follow up DM Rn Cardiac Rehab Required: No Accompanied by: Self / Same As Patient Allergies No Known Allergies Allergy (Verified 03/04/24 08:30) Medication List - Last Reconciled 03/04/24 by Mary Eubanks MD aspirin (Adult Low Dose Aspirin) 81 mg PO DAILY 90 days blood sugar diagnostic ([employer] Ultra Test strips) Use 1 test strip three times a day carvedilol 6.25 mg PO BID 90 days cilostazol 50 mg PO BID 90 days clopidogrel 75 mg PO DAILY 90 days empagliflozin (Jardiance) 10 mg PO DAILY 90 days gabapentin 100 mg PO BID PRN 90 days glipizide 5 mg PO BID 90 days insulin glargine (Lantus Solostar U-100 Insulin) 60 units (0.6 mL) subcut DAILY 90 days lancets Use 1 lancet three times a day losartan 50 mg PO DAILY 90 days metformin 1,000 mg PO BID 90 days omeprazole 20 mg PO DAILY 90 days oseltamivir (Tamiflu) 75 mg PO BID 5 days pen needle, diabetic Use 1 pen needle once a day rosuvastatin 20 mg PO BEDTIME 90 days Tobacco use date assessed: 10/20/23 Dental Screening Dental Screen Date: 10/20/23 HPI HPI Comments History of Present Illness Details This is a 53-year-old male with systolic congestive heart failure, peripheral arterial disease, hyperlipidemia, diabetes mellitus type 2 on long- term current use of insulin and hypertension that comes today for follow-up on his conditions. NT proBNP is within normal limits and congestive heart failure is follow by cardiology. Last echocardiogram done 12/02/2022 shows normal ejection fraction. Seems euvolemic. Has not gain 5 lb in a week. Peripheral arterial disease is follow by vascular surgery and he will have surgical repair next month. Right leg has severe arterial disease and vascular surgery is not able to do more surgeries due to lack of arteries for bypass. LDL within goal. A1c within goal. Blood pressure elevated today but he has not take his losartan yet. He has obese with a BMI of 31.9 and was advised a low-carbohydrate diet and a low-fat diet. Denies any chest pain or shortness on breath. [facility] Medical History (Updated 03/04/24 @ 09:36 by Mary Eubanks MD) Internal hemorrhoid TOBY on CPAP Neuropathy custodial (current) use of insulin CAD (coronary artery disease) Peripheral arterial disease Dyslipidemia GERD (gastroesophageal reflux disease) Essential hypertension Diabetes mellitus Surgical History Hx of colonoscopy H/O vascular surgery Status post right knee replacement S/P CABG x 3 Family History Father No problems noted. Mother No problems noted. Social History Housing: Apartment Alcohol intake: current Alcohol intake frequency: holidays/special occasions only Alcohol type: beer Patient Tobacco Use Status: Never used Tobacco e-Cigarette/Vaping Use: Never Used Second Hand Smoke Exposure: No service: Yes Current occupational status: employed Current occupational exposures/hazards: No Cognitive needs: No Hearing needs: No Vision needs: No Questionnaire Thrive Questionnaire Date Thrive assessed: 10/20/23 CHAVA-7 AMB Questionnaire CHAVA-7 Date CHAVA - 7 assessed: 10/20/23 Source: Developed by Drs. Sachin Muhammad, Sun Gallo, Srinivas Knott and colleagues, with an educational constantine from [employer]. Review of Systems Const All systems reviewed & are unremarkable except as noted in HPI and below Card Denies chest pain at rest, Denies chest pain with activity, Denies edema, Denies irregular heart rhythm, Denies claudication, Denies dyspnea, Denies dyspnea on exertion, Denies orthopnea, Denies paroxysmal nocturnal dyspnea and Denies slow heart rate Resp Denies cough, Denies dyspnea and Denies dyspnea on exertion Physical exam (Primary Care) Vital Signs: Last Vital Signs BP 142/80 H 03/04/24 08:22 Care Plan Goal for BP management: Advised low-salt diet BMI result Body Mass Index 31.9 BMI Assessment/Plan discussion: High BMI High, discussed plan: lifestyle, weight reduction, dietary and physical activity Tobacco/Smoking Status: Tobacco use Status Tobacco use date assessed 10/20/23 03/04/24 08:25 Patient Tobacco Use Status Never used Tobacco 03/04/24 08:25 e-Cigarette/Vaping Use Never Used 03/04/24 08:25 Thrive Assessment: Date of Thrive Assessment Date Thrive assessed 10/20/23 03/04/24 08:25 Resp Effort & Inspection: normal respiratory effort Auscultation: clear to auscultation bilaterally Cardio Jugular venous distension: no JVD Rate: regular rate Rhythm: regular rhythm Heart sounds: S1 normal heart sound present and S2 normal heart sound present Extrem General: Yes full ROM Results AMB Hemoglobin A1c AMB Hemoglobin A1c 6.7 % Last Edit by QUINTON Winston on 03/04/24 08:3 1 Results Reviewed Results Reviewed: Laboratory Last Values Hgb A1c (Clinic) 6.7 % (4.0-6.0) H 03/04/24 08:19 Assessment and Plan Assessment & Plan (1) Systolic congestive heart failure: Code(s): I50.20 - Unspecified systolic (congestive) heart failure Qualifiers: Heart failure chronicity: chronic Qualified Code(s): I50.22 - Chronic systolic (congestive) heart failure Plan: Continue carvedilol. Follow-up with Cardiology. The goal is to not gain 5 lb in a week. (2) Hyperlipidemia LDL goal <70: Code(s): E78.5 - Hyperlipidemia, unspecified Plan: Continue statins. LDL goal is less than 70. Advised to start a low-cholesterol diet. (3) Diabetes mellitus: Code(s): E11.9 - Type 2 diabetes mellitus without complications Qualifiers: Diabetes mellitus type: type 2 Diabetes mellitus snf insulin use: with terminal worker use Diabetes mellitus complication status: without complication Qualified Code(s): E11.9 - Type 2 diabetes mellitus without complications; Z79.4 - keno terminal operator (current) use of insulin Plan: Continue Lantus, glipizide, Jardiance and metformin. A1c goal is equal or less than 7%. (4) Peripheral arterial disease: Code(s): I73.9 - Peripheral vascular disease, unspecified Plan: Continue Plavix and cilostazol. Follow-up with vascular surgery. (5) Essential hypertension: Code(s): I10 - Essential (primary) hypertension Plan: Continue losartan. Blood pressure goal is equal or less than 130/80. Advised low-salt diet. Orders: Orders AMB Hemoglobin A1c Today E11.9 - Type 2 diabetes mellitus without complications, Z79.4 - keno terminal operator (current) use of insulin Microalbumin, Random (w Creat) 4 Months E11.9 - Type 2 diabetes mellitus without complications NT-proBNP 4 Months I50.20 - Unspecified systolic (congestive) heart failure Lipid Panel 4 Months E78.5 - Hyperlipidemia, unspecified Comprehensive [place]. Panel Fast 4 Months E11.9 - Type 2 diabetes mellitus without complications, Z79.4 - custodial (current) use of insulin Medications: Discontinued oseltamivir (Tamiflu) Discontinued Reason: Patient Completed Course 75 mg PO BID 5 days 10 caps 0RF Coding Level of Care Code Est Pt Level 4 (70143) Complex EM visit Add On G2211 Diagnoses Chronic systolic congestive heart failure I50.22 Heart failure chronicity: chronic Hyperlipidemia LDL goal <70 E78.5 Type 2 diabetes mellitus without complication, with long-term current use of insulin E11.9; Z79.4 Diabetes mellitus type: type 2 Diabetes mellitus terminal worker insulin use: with snf use Diabetes mellitus complication status: without complication Peripheral arterial disease I73.9 Essential hypertension I10 Time Spent (min) 23
== END 2024-03-04 08:47 | disposition home or self-care (01) ==
PROVIDERS: PCP Internal Medicine; Visit Provider Internal Medicine
DX: I50.22 Chronic systolic (congestive) heart failure (principal); E11.51 Type 2 diabetes mellitus with diabetic peripheral angiopathy without gangrene; Z79.4 Long term (current) use of insulin; I73.9 Peripheral vascular disease, unspecified; E78.5 Hyperlipidemia, unspecified; I10 Essential (primary) hypertension
CPT/HCPCS: 83036; 99214

== ENCOUNTER 2024-07-28 07:52 | Outpatient (AMB) | payer BC, SELFPAY ==
[2024-07-28 07:55] VITALS: BP 166/90; BMI 30.7
--- NOTE | 2024-07-28 07:55 | A.OFFPC_ITS ---
Vital Signs 07/28/24 07:55 07/28/24 09:51 Height 5 ft 8 in Weight 202 lb BMI 30.7 BP 166/90 H 160/90 H Blood Pressure Location Lt brachial Lt brachial Position Sitting Sitting Intake Visit Reasons: 4mth f/u Intake Note: Patient here for a 4 month follow, c/o right leg pain Multimedia Journalist Required: No Accompanied by: Self / Same As Patient Allergies No Known Allergies Allergy (Verified 07/28/24 08:11) Medication List - Last Reconciled 07/28/24 by Mary Eubanks MD aspirin (Adult Low Dose Aspirin) 81 mg PO DAILY 90 days blood sugar diagnostic (OneTouch Ultra Test strips) Use 1 test strip three times a day carvedilol 6.25 mg PO BID 90 days cilostazol 100 mg PO BID 90 days clopidogrel 75 mg PO DAILY 90 days empagliflozin (Jardiance) 10 mg PO DAILY 90 days gabapentin 100 mg PO BID PRN 90 days glipizide 5 mg PO BID 90 days insulin glargine (Lantus Solostar U-100 Insulin) 60 units (0.6 mL) subcut DAILY 90 days lancets Use 1 lancet three times a day losartan 50 mg PO DAILY 90 days metformin 1,000 mg PO BID 90 days omeprazole 20 mg PO DAILY 90 days pen needle, diabetic Use 1 pen needle once a day rosuvastatin 20 mg PO BEDTIME 90 days Tobacco use date assessed: 10/20/23 Dental Screening Dental Screen Date: 07/28/24 Did you have a dental visit in the last 12 months?: No Did you have a dental problem in the last 6 months where you did not have access to dental care?: No Was dental information given to patient?: Patient has dentist HPI HPI Comments History of Present Illness Details This is a 54-year-old male with diabetes mellitus type 2 with long-term current use of insulin complicated by polyneuropathy, hypertension, hyperlipidemia, peripheral arterial disease, chronic systolic congestive heart failure and obstructive sleep apnea on CPAP that comes today complaining of diffuse joint pain that has been present for years. Denies any fever or rash. His right ankle branchial index was 0.83 in November of this year showing mild peripheral arterial disease and had recent vascular surgery in the right leg and is complaining about right leg pain that does not let him sleep. I will prescribe trazodone at bedtime as needed to sleep. He also complains of muscle cramps diffusely and I will order magnesium. Due to his neuropathy I will also check vitamin B12. A1c is within goal and I will decrease glipizide. Blood pressure elevated but he admits not taking blood pressure medications today. He is aware that at home blood pressure has been more elevated than usual and I will increase losartan. Blood pressure will be recheck in 3 weeks by nurse navigator. His LDL is within goal. Last echocardiogram that I can see from 2022 shows ejection fraction of 58% and he denies gaining 5 lb in a week. Congestive heart failure is follow by cardiology. He is compliant with his CPAP machine and feels more rested while using CPAP. He takes a total of 600 mg of gabapentin daily and still has neuropathy symptoms such as burning like pain in legs and numbness and I will add pregabalin at bedtime due to this matter. 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 Mother No problems noted. Social History Housing: Apartment Alcohol intake: current Alcohol intake frequency: holidays/special occasions only Alcohol type: beer Patient Tobacco Use Status: Never used Tobacco e-Cigarette/Vaping Use: Never Used Second Hand Smoke Exposure: No service: Yes Current occupational status: employed Current occupational exposures/hazards: No Cognitive needs: No Hearing needs: No Vision needs: No Questionnaire Thrive Questionnaire Date Thrive assessed: 10/20/23 AUDIT C Alcohol Use Questionnaire (AUDIT-C) 1. How often do you have a drink containing alcohol?: Monthly or less 2. How many drinks containing alcohol do you have on a typical day when you are drinking?: 1 or 2 3. How often do you have six or more drinks on one occasion?: Never Total Score: 1 Score Reviewed/Action Taken: No CHAVA-7 AMB Questionnaire CHAVA-7 Date CHAVA - 7 assessed: 10/20/23 Source: Developed by Drs. Sachin Muhammad, Sun Gallo, Srinivas Knott and colleagues, with an educational constantine from [employer]. Review of Systems Const All systems reviewed & are unremarkable except as noted in HPI and below Card Denies chest pain at rest, Denies chest pain with activity, Denies edema, Denies irregular heart rhythm, Denies claudication, Denies dyspnea, Denies dyspnea on exertion, Denies orthopnea, Denies paroxysmal nocturnal dyspnea and Denies slow heart rate Resp Denies cough, Denies dyspnea and Denies dyspnea on exertion GI Reports abdominal pain, Denies change in bowel habits, Denies excessive flatus, Denies nausea and Denies vomiting Musc Reports arthralgias and Reports muscle cramps Physical exam (Primary Care) Vital Signs: Last Vital Signs BP 166/90 H 07/28/24 07:55 Care Plan Goal for BP management: Losartan will be increased to 100 mg. Blood pressure will be recheck in 3 weeks by nurse navigator. Next steps: Follow a low-salt diet. BMI result Body Mass Index 30.7 BMI Assessment/Plan discussion: High BMI High, discussed plan: lifestyle, weight reduction, dietary and physical activity Tobacco/Smoking Status: Tobacco use Status Tobacco use date assessed 10/20/23 07/28/24 08:04 Patient Tobacco Use Status Never used Tobacco 07/28/24 08:04 e-Cigarette/Vaping Use Never Used 07/28/24 08:04 Thrive Assessment: Date of Thrive Assessment Date Thrive assessed 10/20/23 07/28/24 08:04 Resp Effort & Inspection: normal respiratory effort Auscultation: clear to auscultation bilaterally Cardio Jugular venous distension: no JVD Rate: regular rate Rhythm: regular rhythm Heart sounds: S1 normal heart sound present and S2 normal heart sound present Extrem General: Yes full ROM Results AMB Hemoglobin A1c AMB Hemoglobin A1c 6.3 % Last Edit by QUINTON Winston on 07/28/24 08:1 8 Results Reviewed Results Reviewed: Laboratory Last Values Hgb A1c (Clinic) 6.3 % (4.0-6.0) H 07/28/24 07:55 Coding Level of Care Code Est Pt Level 5 (15631) Complex EM visit Add On G2211 Diagnoses Essential hypertension I10 Peripheral arterial disease I73.9 Type 2 diabetes mellitus with diabetic polyneuropathy, with long-term current use of insulin E11.42; Z79.4 Diabetes mellitus type: type 2 Hyperlipidemia LDL goal <70 E78.5 Chronic systolic congestive heart failure I50.22 Heart failure chronicity: chronic TOBY on CPAP G47.33; Z99.89 Muscle cramps R25.2 Polyarthralgia M25.50 Insomnia due to medical condition G47.01 Insomnia type: due to medical condition Time Spent (min) 28 Assessment & Plan Assessment & Plan (1) Essential hypertension: Code(s): I10 - Essential (primary) hypertension Category: Medical Plan: Increase losartan to 100 mg. Blood pressure goal is equal or less than 130/80. Recheck blood pressure with nurse navigator in 3 weeks. Advised low-salt diet. (2) Peripheral arterial disease: Code(s): I73.9 - Peripheral vascular disease, unspecified Category: Medical Plan: Continue cilostazol. Follow-up with vascular surgery. 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 Decrease glipizide. He has had hypoglycemia and hyperglycemia with numbers ranging from 54 to 200. Continue metformin and Jardiance. A1c goal is equal or less than 7%. (4) Hyperlipidemia LDL goal <70: Code(s): E78.5 - Hyperlipidemia, unspecified Category: Medical Plan: Continue statins. LDL goal is less than 70. (5) Systolic congestive heart failure: Code(s): I50.20 - Unspecified systolic (congestive) heart failure Category: Medical Qualifiers: Heart failure chronicity: chronic Qualified Code(s): I50.22 - Chronic systolic (congestive) heart failure Plan: Continue carvedilol. Follow-up with Cardiology. The goal is to not gain 5 lb in a week. (6) TOBY on CPAP: Code(s): G47.33 - Obstructive sleep apnea (adult) (pediatric); Z99.89 - Dependence on other enabling machines and devices Category: Medical Plan: Continue the use of CPAP machine. (7) Muscle cramps: Code(s): R25.2 - Cramp and spasm Category: Medical Plan: Magnesium levels ordered. (8) Polyarthralgia: Code(s): M25.50 - Pain in unspecified joint Category: Medical Plan: Labs ordered to rule out any rheumatologic disease causing joint pain and/or lyme disease due to been in an endemic area. (9) Insomnia: Code(s): G47.00 - Insomnia, unspecified Category: Medical Qualifiers: Insomnia type: due to medical condition Qualified Code(s): G47.01 - Insomnia due to medical condition Plan: Start trazodone as needed. 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 Cyclic Citrullinated Peptide Today M25.50 - Pain in unspecified joint Rheumatoid Factor Today M25.50 - Pain in unspecified joint Lyme IgG/IgM w/reflex to WB Today M25.50 - Pain in unspecified joint Medications: New glipizide 2.5 mg PO BID 90 days 180 tabs 0RF trazodone 50 mg PO BEDTIME 30 days PRN 30 tabs 0RF sleep pregabalin 50 mg PO BEDTIME 30 days 30 caps 0RF losartan 100 mg PO DAILY 90 days 90 tabs 1RF Discontinued losartan Discontinued Reason: Patient Completed Course 50 mg PO DAILY 90 days 90 tabs 3RF glipizide Discontinued Reason: Patient Completed Course 5 mg PO BID 90 days 180 tabs 1RF
[2024-07-28 09:51] VITALS: BP 160/90
== END 2024-07-28 08:40 | disposition home or self-care (01) ==
PROVIDERS: PCP Internal Medicine; Visit Provider Internal Medicine
DX: I73.9 Peripheral vascular disease, unspecified (principal); E11.42 Type 2 diabetes mellitus with diabetic polyneuropathy; Z79.4 Long term (current) use of insulin; E11.69 Type 2 diabetes mellitus with other specified complication; I50.22 Chronic systolic (congestive) heart failure; I10 Essential (primary) hypertension; E78.5 Hyperlipidemia, unspecified; G47.33 Obstructive sleep apnea (adult) (pediatric); Z99.89 Dependence on other enabling machines and devices; R25.2 Cramp and spasm; M25.50 Pain in unspecified joint; G47.01 Insomnia due to medical condition

== ENCOUNTER → 2024-07-28 07:52 | Outpatient (BNVA) | payer BC, SELFPAY | PROVIDERS: PCP Internal Medicine; Visit Provider Internal Medicine | DX: I11.0 Hypertensive heart disease with heart failure (principal); I50.22 Chronic systolic (congestive) heart failure; I73.9 Peripheral vascular disease, unspecified; E11.42 Type 2 diabetes mellitus with diabetic polyneuropathy; E78.5 Hyperlipidemia, unspecified; G47.33 Obstructive sleep apnea (adult) (pediatric); R25.2 Cramp and spasm; M25.50 Pain in unspecified joint; G47.01 Insomnia due to medical condition; Z79.4 Long term (current) use of insulin; Z79.899 Other long term (current) drug therapy; Z99.89 Dependence on other enabling machines and devices | CPT/HCPCS: 83036 ==

== ENCOUNTER → 2024-08-20 09:16 | Outpatient (BNVA) | payer BC, SELFPAY | PROVIDERS: PCP Internal Medicine ==

== ENCOUNTER 2024-08-23 08:23 | Outpatient (AMB) | payer BC, SELFPAY ==
--- NOTE | 2024-08-23 08:38 | AM.OFFVISNUR ---
Intake Visit Reasons: TB Implant Allergies No Known Allergies Allergy (Verified 07/28/24 08:11) Office Meds tuberculin PPD 5 tub. 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
== END 2024-08-23 08:39 | disposition home or self-care (01) ==
PROVIDERS: PCP Internal Medicine; Visit Provider Internal Medicine
DX: Z11.1 Encounter for screening for respiratory tuberculosis (principal)

== ENCOUNTER → 2024-08-23 08:23 | Outpatient (BNVA) | payer BC, SELFPAY | PROVIDERS: PCP Internal Medicine; Visit Provider Internal Medicine | DX: Z11.1 Encounter for screening for respiratory tuberculosis (principal) | CPT/HCPCS: 86580 ==

== ENCOUNTER 2024-08-25 08:15 | Outpatient (REF) | payer BC, SELFPAY | END 2024-08-25 08:16 | disposition home or self-care (01) | LOC: HO.LAB 08:15 | PROVIDERS: PCP Internal Medicine; Visit Provider Internal Medicine | DX: Z71.85 Encounter for immunization safety counseling (principal); Z01.84 Encounter for antibody response examination | CPT/HCPCS: 36415; 86787 ==

== ENCOUNTER 2024-10-26 07:13 | Outpatient (AMB) | payer BC, SELFPAY ==
--- OUTSIDE RECORDS SUMMARY | 2024-10-26 07:15 | XMS_ITS | Encounter Summary ---
Author Organization [facility] Address [address] [place] [address] Care Team Providers Care Mailroom Supervisor Name Role Phone Mary Eubanks MD Primary Care Provider [phone] Reason for Visit * Reason Onset Date Comments Provider Call Back 09/29/2024 Encounter Details Date Type Department Care Team (Late st Contact Info) Description 09/29/2024 Telephone Vascular Surgery [place] [address] [place] [phone] Harry Taveras MD [address] [place] [address] Provider Call Back Social History Tobacco Use Types Packs/Day Years Used Date Smoking Tobacco: Never Smokeless Tobacco: Never Alcohol Use Standard Drinks/Week Comments Not Currently 0 (1 standard drink = 0.6 oz pur e alcohol) Housing Instability Answer Date Recorde d Are you worried that in the next 2 months you may not have stable housing? Yes 09/22/2024 Food Access & Nutrition Answer Date Rec orded Do you have access to a vari ety of food including fruits and vegetables? Yes 09/22/2024 Health Literacy Answer Date Recorded How often do you need to hav e someone help you when you read instructions, pamphlets, or other written material from your doctor or pharmacy? Never 09/22/2024 Caregiver: How often do you need to have someone help you when you read instructions, pamphlets, or other written material from your doctor or pharmacy? Not on file 09/22/2024 Financial Risk Answer Date Recorded How hard is it for you to pa y for the very basics like food, housing, medical care, and air conditioning / heating? Not very hard 09/22/2024 Transportation Answer Date Recorded Has the lack of transportati on kept you from meetings, work, or from getting things needed for daily living? No 09/22/2024 Has the lack of transportati on kept you from medical appointments or from getting medications? Not on file 09/22/2024 Food Risk Answer Date Recorded Within the past 12 months we worried whether our food would run out before we got money to buy more. Never true 09/22/2024 Within the past 12 months th e food we bought just didn't last and we didn't have money to get more. Never true 09/22/2024 Dependent Care Answer Date Recorded Do you need help finding or paying for care for your loved ones. For example, child day care center worker or elderly care for an older adult? No 09/22/2024 Education Answer Date Recorded Do you think completing more education or training, like finishing a GED, going to college, or learning a trade, would be helpful for you? Yes 09/22/2024 Employment and Income Answer Date Recor ded During the last four weeks, have you been actively looking for work? No 09/22/2024 Living Situation Answer Date Recorded What is your living situation? 0 09/22/2024 Interpersonal Safety Answer Date Record ed Physical Abuse 09/22/2024 Verbal Abuse 09/22/2024 Sex and Gender Information Value Date Recorded Sex Assigned at Male 09/17/2024 10:59 AM EST Legal Sex Male 10:45 AM EST Gender Identity Male 09/17/2024 10:59 AM EST Sexual Orientation Straight 09/17/2024 10 :59 AM EST documented as of this encounter Progress Notes * Suhas Dent MA - 09/29/2024 9:49 AM EST Spoke with patient, went over sepsis, and what to watch for. Patient satisfied * Jesse Julian - 09/29/2024 9:08 AM EST Patient calling with questions regarding wound care; he woke up with the wound area bleeding after he did a dressing change; also experiencing nose bleeds. It also got to the point where he lost a filling after blowing his nose. documented in this encounter Plan of Treatment Upcoming Encounters Date Type Department Care Team (Late st Contact Info) Description 10/26/2024 10:00 AM EST Appointment [facility] Ultrasound [address] [place] [address] 11/01/2024 10:15 AM EST Office Visit Vascular Surgery - [place] [address] [facility] [address] [place] [address] Joann Morales PA 300 [facility] [address] [place] [address] 03/28/2025 8:00 AM EDT Office Visit Pulmonolgy - [place] [address] [facility] [address] [place] [address] Laura Foster MD 175 [facility] [address] [place] [address] documented as of this encounter Visit Diagnoses Not on filedocumented in this encounter Care Teams Mailroom Supervisor Relationship Specialty Start Date End Date Mary Eubanks MD [address] [facility] , [address] [facility] Physician Associ D/B/A: [facility] [place] PCP - General Internal Medicine 07/13/21 documented as of this encounter
--- OUTSIDE RECORDS SUMMARY | 2024-10-26 07:15 | XMS_ITS | Encounter Summary ---
Author Organization [facility] Address [address] [place] [address] Care Team Providers Care Appliquer Zigzag Name Role Phone Mary Eubanks MD Primary Care Provider [phone] Reason for Visit * Reason Comments Post-op Encounter Details Date Type Department Care Team (Late st Contact Info) Description 10/12/2024 9:00 AM EST Office Visit Vascular Surgery - [place] [address] [facility] [address] [place] [address] Joann Morales PA [address] [facility] [address] [place] [address] Peripheral arterial disease (CMS/HCC) (Primary Dx) Social History Tobacco Use Types Packs/Day Years [...] care for your loved ones. For example, rn child or elderly care for an older adult? [...] AM EST documented as of this encounter Last Filed Vital Signs Vital Sign Reading Time Taken Comments Blood Pressure 116/71 10/12/2024 8:52 AM EST Pulse 70 10/12/2024 8:52 AM EST Temperature - - Respiratory Rate - - Oxygen Saturation - - Inhaled Oxygen Concentration - - Weight 89.8 kg (198 lb) 10/12/2024 8:52 AM EST Height 172.7 cm (5' 8 ) 10/12/2024 8:52 AM EST Body Mass Index 30.11 10/12/2024 8:52 AM EST documented in this encounter Progress Notes * YESY Figueroa - 10/12/2024 9:00 AM EST 10/12/2024 HPI: Ricardo Farr presents for surgical follow up s/p right femoral-popliteal bypass graft with reversed greater saphenous vein done on 09/22/2024 . He was seen last week sooner than expected due to continued drainage from the thigh incision and swelling. Postoperatively, patient had diffuse bleeding from all incisions with hematoma forming along the entire leg. He was given platelets and compressionwas applied. The next day, bleeding had resolved. He was discharged on 09/26/24. There was no accepting VNA at the time of discharge and patient wanted to go home anyway. Pt says this was not the caseand he basically was just told he was being discharged, unaware of the issues with VNA. Pt was seenlast week for swelling and drainage from the incisions, mainly at the thigh. He was sent for a duplex which is reviewed below. Currently he is applying betadine, then antibiotic ointment, then ABD pads and securing with tape. He will often wrap an juany wrap around his leg as well without significantcompression. He has improved significantly over the past week however is still having drainage froma few specific areas at the medial calf and thigh. Swelling has gone down. He is taking aspirin kelly statin. He is no longer on plavix. Patient has had other previous vascular surgical interventions with Dr. Canseco at [facility], including right femoral endarterectomy and popliteal artery DCB angioplasty. He has had other interventionsat multiple other facilities but cannot provide exact details. Patient is does not smoke tobacco products. Patient does use cannabis products. He has had a CABG with [facility]. PE: Vitals: 10/12/24 0852 BP: 116/71 BP Location: Right arm Patient Position: Sitting Pulse: 70 Weight: 89.8 kg (198 lb) Height: 1.727 m (68 ) APPEARANCE: Alert and in no acute distress EYES: Conjunctiva and sclera normal. LUNG: Nonlabored respirations ABDOMEN: Soft, non-tender, non-distended NEURO: Awake, alert and oriented VASCULAR: -Right lower extremity: Incision from groin to medial calf with ron and sutures. There is an incision with some ron or sutures missing at the medial calf. The thigh still has diffuse ecchymosis which appears older and is now firm to palpation. Serous drainage expressed from thigh incisions and medial calf incision. No dehiscence or sign of infection. Incision cleansed with betadine. ABDs applied and juany wrap applied with mild compression, increased compression at the upper thigh. 2+ DP.No foot or ankle swelling. No ulcers on foot. IMAGING: Arterial duplex of the right leg, [facility], 10/06/24: Patent SFA-popliteal bypass with large complex collection surrounding bypass graft from upper thigh to calf, 28 x 3.32 x 5.35 cm. A/P: 54 y/o male s/p right femoral popliteal bypass with rGSV on 09/22/24. Duplex was reviewed. Patient has improved since last visit. Ecchymosis is slowly resolving. Drainage is decreasing. No sign of infection. Encouraged he continue current care, clean the incisions with betadine daily, cover with ABDs, secure with tape. He is advised regarding care of the incision site and is instructed to call if any wound drainage, fever, or other concerns arise. Continue aspirin and statin. Return next week as scheduled for staple/suture removal. The patient will follow up as directed and he is to call if there are any problems prior to scheduled visit. documented in this encounter Plan of Treatment Upcoming Encounters Date Type Department Care Team (Late st Contact Info) Description 10/26/2024 10:00 AM EST Appointment [facility] Ultrasound [address] [place] [phone] 11/01/2024 10:15 AM EST Office Visit Vascular Surgery [facility] [address] [facility] [address] [place] [phone] Joann Morales PA [address] [facility] [address] [place] [address] 03/28/2025 8:00 AM EDT Office Visit Pulmonolgy [facility] 175 [facility] [address] [place] [address] Laura Foster MD [address] [facility] 200 [place] [address] documented as of this encounter Visit Diagnoses Diagnosis Peripheral arterial disease (CMS/HCC)- Primary Unspecified peripheral vascular disease documented in this encounter Discontinued Medications Medication Sig Discontinue Reason Start Date End Da te clopidogreL (PLAVIX) 75 mg tablet Take 1 tablet (75 mg total) by mouth 1 (one) time each day. 12/04/2020 10/12/2024 documented as of this encounter Care Teams Appliquer Zigzag Relationship Specialty Start Date End Date Mary Eubanks MD 2 [facility] , [address] Physician Associ D/B/A: [facility] [place], [place] PCP - General Internal Medicine 07/13/21 documented as of this encounter
--- OUTSIDE RECORDS SUMMARY | 2024-10-26 07:15 | XMS_ITS | Encounter Summary ---
Author Organization [facility] Address [address] [place] [address] Care Team Providers Care Deck Engine Operator Name Role Phone Mary Eubanks MD Primary Care Provider [phone] Reason for Referral * Imaging (Routine) - Closed Specialty Diagnoses / Procedures Referred By Contac t Referred To Contact Diagnoses PAD (peripheral artery disease) (CMS/HCC) Aneurysm of left popliteal artery (CMS/HCC) Procedures Vascular US duplex lower extremity arteries right with Doppler [facility] [address] [place] [address] Phone: tel: fax: [facility] Referral ID Status Reason Start Date Expiration Date Visits Re quested Visits Authorized [id number] Closed 10/06/2024 10/06/2025 1 1 Reason for Visit * Imaging (Routine) - Closed Specialty Diagnoses / Procedures Referred By Contac t Referred To Contact Diagnoses PAD (peripheral artery disease) (CMS/HCC) Aneurysm of left popliteal artery (CMS/HCC) Procedures Vascular US duplex lower extremity arteries right with Doppler Harry Taveras MD [address] [facility] [address] [place] [address] Phone: tel: fax: [facility] Referral ID Status Reason Start Date Expiration Date Visits Re quested Visits Authorized [id number] Closed 10/06/2024 10/06/2025 1 1 Encounter Details Date Type Department Care Team (Latest Contact Info) Description 10/07/2024 2:45 PM EST - 10/07/2024 11:59 PM [facility] Hospital Encounter [facility] Ultrasound [address] [place] [address] PAD (peripheral artery disease) ([facility]/HCC); Aneurysm of left popliteal artery ([facility]) Discharge Disposition: Home or Self Care Social History Tobacco Use Types Packs/Day Years [...] for your loved ones. For example, child and family counselor or elderly care for an older adult? [...] AM EST documented as of this encounter Medications at Time of Discharge BABY ASPIRIN ORAL Take 81 mg by mouth 1 (one) time each day. blood-glucose meter kit 1 each by Not Applicable route 1 (one) time each day. 02/15/2016 carvediloL (COREG) 6.25 mg tablet Take 1 tablet (6.25 mg total) by mouth 2 (two) times a day with meals. 12/19/2020 empagliflozin (Jardiance) 10 mg tablet 1 tablet (10 mg total) 1 (one) time each day. 10/20/2023 gabapentin (NEURONTIN) 100 mg capsule TAKE 2 CAPSULES IN THE MORNING AND 4 CAPSULES AT BEDTIME 12/19/2020 glipiZIDE (GLUCOTROL XL) 2.5 mg 24 hr tablet 2 tablets (5 mg total) at bedtime. 02/19/2024 insulin glargine (Lantus Solostar U-100 Insulin) 100 unit/mL (3 mL) injection pen 60 Units by subdermal route at bedtime. Patient took 30units 1/7 PM 02/05/2021 losartan (COZAAR) 50 mg tablet Take 2 tablets (100 mg total) by mouth 1 (one) time each day. 12/18/2020 metFORMIN (GLUCOPHAGE) 1,000 mg tablet Take 1 tablet (1,000 mg total) by mouth 2 (two) times a day with meals. 01/08/2021 NON FORMULARY Inhale into the lungs. SMS-pressure 6-16 omeprazole (PriLOSEC) [address] capsule Take 1 capsule (20 mg total) by mouth at bedtime. 09/20/2020 Zettaset Ultra Test test strip 2 (two) times a day. USE TO CHECK BLOOD SUGAR 11/30/2020 oxyCODONE (ROXICODONE) 10 mg immediate release tabletIndication s:PAD (peripheral artery disease) ([facility]),S/P vascular surgery Take 1 tablet (10 mg total) by mouth every 4 (four) hours if needed for severe pain. Max Daily Amount: 60 mg 15 tablet 09/26/2024 pregabalin (LYRICA) 50 mg capsule Take 1 capsule (50 mg total) by mouth at bedtime. rosuvastatin (CRESTOR) 20 mg tablet Take 1 tablet (20 mg total) by mouth 1 (one) time each day. 12/15/2020 syr,ndl,ins,safe 0.5mL,disp un (INSULIN SYRINGE-NEEDLE,D ISPOS. MISC) 1 (one) time each day. USE WITH INSULIN PEN 01/15/2021 traZODone (DESYREL) 50 mg tablet Take 1 tablet (50 mg total) by mouth at bedtime. clopidogreL (PLAVIX) 75 mg tablet Take 1 tablet (75 mg total) by mouth 1 (one) time each day. 12/04/2020 documented as of this encounter Discharge Disposition Disposition Code Departure Means Destination Home or Self Care documented in this encounter Plan of Treatment Upcoming Encounters Date Type Department Care Team (Late st Contact Info) Description 10/26/2024 10:00 AM EST Appointment [facility] Ultrasound [address] [place] [id number] 11/01/2024 10:15 AM EST Office Visit Vascular Surgery [facility] [address] [facility] [address] [place] [phone] Joann Morales PA 300 [facility] [address] [place] [address] 03/28/2025 8:00 AM EDT Office Visit Pulmonolgy [facility] 175 [facility] [address] [place] [phone] Laura Foster MD [address] [address] documented as of this encounter Procedures Procedure Name Priority Date/Time Associated Diagnosis Comments VAS US DUPLEX LOWER EXT ART RIGHT W DOPPLER Routine 10/07/2024 5:10 PM EST PAD (peripheral artery disease) (CMS/HCC) Aneurysm of left popliteal artery (CMS/HCC) documented in this encounter Results * Vascular US duplex lower extremity arteries right with Doppler (10/07/2024 5:10 PM EST) Anatomical Region Laterality Modality Vascular, Abdomen Ultrasound 10/12/2024 9:31 AM EST Impressions 10/12/2024 9:41 AM EST Right leg: Patent proximal SFA to distal popliteal artery bypass graft with tracking hematoma along the length of the graft. -------- FINAL REPORT -------- Dictated By: Mark Melissa Dictated Date: 10/12/2024 09:31 ET Assigned Physician: Mark Melissa Reviewed and Electronically Signed By: Mark Melissa Signed Date: 10/12/2024 09:41 ET Workstation ID: [id number] Transcribed By: Self Edit Transcribed Date: 10/12/2024 09:31 ET Narrative 10/12/2024 9:41 AM EST INDICATION: Peripheral arterial disease status post bypass TECHNIQUE: Arterial duplex imaging obtained of the right ??lower extremity. Prior relevant imaging studies: CTA of the aorta and lower extremities from August 20, 2024 Right leg: Common femoral artery: 53 cm/s with triphasic waveform Superficial femoral artery: Occlusion of the [place] vessel distally. Patent proximal SFA bypass graft with velocity measuring 69 cm/s at the anastomosis. Velocity in the mid graft measures 100 cm/s and 167 cm/s at the distal anastomosis with the below knee popliteal artery. Popliteal artery: 94 cm/s distally. Posterior tibial artery: Slow flow along the mid to distal vessel with occlusion distally. Anterior tibial artery: 103 cm/s in the proximal vessel, 33 cm/s in the mid vessel and 61 cm/s distally. Tracking hematoma noted along the length of the bypass graft along the right thigh down to the upper calf. Procedure Note Mark Melissa MD - 10/12/2024 INDICATION: Peripheral arterial disease status post bypass TECHNIQUE: Arterial duplex imaging obtained of the right lowerextremity. Prior relevant imaging studies: CTA of the aorta and lower extremitiesfrom August 20, 2024 Right leg: Common femoral artery: 53 cm/s with triphasic waveform Superficial femoral artery: Occlusion of the [place] vessel distally.Patent proximal SFA bypass graft with velocity measuring 69 cm/s at theanastomosis. Velocity in the mid graft measures 100 cm/s and 167 cm/s atthe distal anastomosis with the below knee popliteal artery. Popliteal artery: 94 cm/s distally. Posterior tibial artery: Slow flow along the mid to distal vessel withocclusion distally. Anterior tibial artery: 103 cm/s in the proximal vessel, 33 cm/s in themid vessel and 61 cm/s distally. Tracking hematoma noted along the length of the bypass graft along theright thigh down to the upper calf. IMPRESSION: Right leg: Patent proximal SFA to distal popliteal artery bypass graftwith tracking hematoma along the length of the graft. -------- FINAL REPORT -------- Dictated By: Mark Melissa Dictated Date: 10/12/2024 09:31 ET Assigned Physician: Mrak Melissa Reviewed and Electronically Signed By: Mark Melissa Signed Date: 10/12/2024 09:41 ET Workstation ID: [id number] Transcribed By: Self Edit Transcribed Date: 10/12/2024 09:31 ET us Harry Taveras MD CV VASCULAR PROCEDURES Final Re sult documented in this encounter Visit Diagnoses Diagnosis PAD (peripheral artery disease) (CMS/HCC) Unspecified peripheral vascular disease Aneurysm of left popliteal artery (CMS/HCC) documented in this encounter Care Teams Deck Engine Operator Relationship Specialty Start Date End Date Mary Eubanks MD [address] [place] [address] , [address] [facility] D/B/A: [facility] [place] PCP - General Internal Medicine 07/13/21 documented as of this encounter
--- OUTSIDE RECORDS SUMMARY | 2024-10-26 07:15 | XMS_ITS | Encounter Summary ---
Author Organization [facility] Address [address] [place] [address] Care Team Providers Care Server Service Assistant Name Role Phone Mary Eubanks MD Primary Care Provider [phone] Reason for Referral * Imaging (Emergency) - Authorized Specialty Diagnoses / Procedures Referred By Contac t Referred To Contact Diagnoses PAD (peripheral artery disease) (CMS/HCC) Procedures Vascular US duplex lower extremity arteries left with Doppler Harry Taveras MD [address] [place] [address] [place] [address] Phone: tel: fax: [facility] Referral ID Status Reason Start Date Expiration Date V isits Requested Visits Authorized [id number] Authorized 10/22/2024 10/22/2025 1 1 Reason for Visit * Reason Comments Post-op Peripheral Arterial Bypass Encounter Details Date Type Department Care Team (Late st Contact Info) Description 10/22/2024 8:30 AM EST Office Visit Vascular Surgery - [place] [address] [place] [phone] Harry Taveras MD [address] [place] [address] [place] [address] PAD (peripheral artery disease) (CMS/HCC) (Primary Dx) Social History Tobacco Use [...] care for your loved ones. For example, early childhood teacher or elderly care for an older adult? [...] Sign Reading Time Taken Comments Blood Pressure 90/60 10/22/2024 8:28 AM EST Pulse 72 10/22/2024 8:28 AM EST Temperature - - Respiratory Rate 16 10/22/2024 8:28 AM EST Oxygen Saturation - - Inhaled Oxygen Concentration - - Weight 91.6 kg (202 lb) 10/22/2024 8:28 AM EST Height 172.7 cm (5' 8 ) 10/22/2024 8:28 AM EST Body Mass Index 30.71 10/22/2024 8:28 AM EST documented in this encounter Ordered Prescriptions Prescription Sig Dispense Quantity Refills Last Filled Start Date End Date cephalexin (KEFLEX) 500 mg capsule Take 1 capsule (500 mg total) by mouth 2 (two) times a day for 10 days. 20 each 10/22/2024 documented in this encounter Progress Notes * Harry Taveras MD - 10/22/2024 8:30 AM EST PATIENT: Ricardo Farr ENCOUNTER: 10/22/2024 EMRN: [id number] : 1970 PCP: Mary Eubanks MD CHIEF COMPLAINT: Post-op Peripheral Arterial Bypass HPI: This is a 54 y.o. male who presents for follow-up s/p right femoral-popliteal bypass graft with reversed greater saphenous vein done on 09/22/2024 . Postoperatively, patient had diffuse bleeding from all incisions with hematoma forming along the entire leg. He was given platelets and compression was a pplied. The next day, bleeding had resolved. He was discharged on 09/26/24. There was no accepting VNA at the time of discharge and patient wanted to go home anyway. Pt says this was not the case and he basically was just told he was being discharged, unaware of the issues with VNA. He was seen sooner than expected due to continued drainage from the thigh incision and swelling. He was sent for a duplex which is reviewed below. Currently he is applying betadine, then antibiotic ointment, then ABDpads and securing with tape. He will often wrap an deangelo wrap around his leg as well without significant compression. He has improved significantly week however is still having occasional drainage froma few specific areas at the medial calf and thigh. However, yesterday was the first day he had no drainage. Swelling has gone down. He is taking aspirin and a statin. He is no longer on plavix. Patient has had other previous vascular surgical interventions with Dr. Canseco at [facility], including right femoral endarterectomy and popliteal artery DCB angioplasty. He has had other interventionsat multiple other facilities but cannot provide exact details. Patient is does not smoke tobacco products. Patient does use cannabis products. He has had a CABG with [facility]. PAST MEDICAL HISTORY: (reviewed and unchanged) Patient Active Problem List Diagnosis Anxiety Bilateral carpal tunnel syndrome Coronary artery disease Diabetes mellitus ([facility]) GERD (gastroesophageal reflux disease) Mixed hyperlipidemia Obesity (BMI 35.0-39.9 without comorbidity) Obstructive sleep apnea syndrome Osteoarthritis of knee Peripheral arterial disease ([facility]) Primary hypertension Type 2 diabetes mellitus with diabetic peripheral angiopathy without gangrene ([facility]) PAD (peripheral artery disease) ([facility]) S/P vascular surgery PAST SURGICAL HISTORY: (reviewed and unchanged) Past Surgical History: Procedure Laterality Date CORONARY ARTERY BYPASS GRAFT JOINT REPLACEMENT Right KNEE ARTHROPLASTY Bilateral KNEE ARTHROSCOPY W/ DEBRIDEMENT , 2006 PROCEDURE: MD ARTHRS KNEE DEBRIDEMENT/SHAVING ARTCLR CRTLG; COMMENT: Left and right OTHER SURGICAL HISTORY 02/14/2016 PROCEDURE: MD CABG W/ARTERIAL GRAFT THREE ARTERIAL GRAFTS; COMMENT: Dr. Barksdale OTHER SURGICAL HISTORY 08/05/2023 PROCEDURE: MD REVSC OPN/PRG FEM/POP W/ANGIOPLASTY UNI OTHER SURGICAL HISTORY 08/05/2023 PROCEDURE: MD REVASC INTRAVASC LITHOTRIPSY OTHER SURGICAL HISTORY 08/05/2023 PROCEDURE: ULTRASOUND GUIDANCE FOR VASCULAR AC OTHER SURGICAL HISTORY 03/30/2024 PROCEDURE: MD SLCTV CATHJ 3RD+ ORD SLCTV ABDL PEL/LXTR BRNCH OTHER SURGICAL HISTORY 03/30/2024 PROCEDURE: MD SLCTV CATHJ EA 2ND+ ORD ABDL PEL/LXTR ART BRNCH; COMMENT: x2 OTHER SURGICAL HISTORY 03/30/2024 PROCEDURE: X-RAY EXAM OF ARM/LEG ARTERY OTHER SURGICAL HISTORY 03/30/2024 PROCEDURE: X-RAY EXAM OF PELVIC ARTERIES OTHER SURGICAL HISTORY 03/30/2024 PROCEDURE: ULTRASOUND GUIDANCE FOR VASCULAR AC TOTAL KNEE ARTHROPLASTY 08/15/2011 PROCEDURE: MD ARTHRP KNE CONDYLE&PLATU MEDIAL&LAT COMPARTMENTS; COMMENT: right VEIN SURGERY MEDICATIONS: (reviewed, flow sheet updated) Outpatient Medications Marked as Taking for the 10/22/24 encounter (Office Visit) with Harry Taveras MD Medication Sig Dispense Refill BABY ASPIRIN ORAL Take 81 mg by mouth 1 (one) time each day. carvediloL (COREG) 6.25 mg tablet Take 1 tablet (6.25 mg total) by mouth 2 (two) times a day with meals. empagliflozin (Jardiance) 10 mg tablet 1 tablet (10 mg total) 1 (one) time each day. gabapentin (NEURONTIN) 100 mg capsule TAKE 2 CAPSULES IN THE MORNING AND 4 CAPSULES AT BEDTIME glipiZIDE (GLUCOTROL XL) 2.5 mg 24 hr tablet 2 tablets (5 mg total) at bedtime. insulin glargine (Lantus Solostar U-100 Insulin) 100 unit/mL (3 mL) injection pen 60 Units by subdermal route at bedtime. Patient took 30units 1/7 PM losartan (COZAAR) 50 mg tablet Take 2 tablets (100 mg total) by mouth 1 (one) time each day. metFORMIN (GLUCOPHAGE) 1,000 mg tablet Take 1 tablet (1,000 mg total) by mouth 2 (two) times a day with meals. NON FORMULARY Inhale into the lungs. SMS-pressure 6-16 omeprazole (PriLOSEC) [address] capsule Take 1 capsule (20 mg total) by mouth at bedtime. OneTouch Ultra Test test strip 2 (two) times a day. USE TO CHECK BLOOD SUGAR oxyCODONE (ROXICODONE) 10 mg immediate release tablet Take 1 tablet (10 mg total) by mouth every 4 (four) hours if needed for severe pain. Max Daily Amount: 60 mg 15 tablet 0 pregabalin (LYRICA) 50 mg capsule Take 1 capsule (50 mg total) by mouth at bedtime. rosuvastatin (CRESTOR) 20 mg tablet Take 1 tablet (20 mg total) by mouth 1 (one) time each day. syr,ndl,ins,safe 0.5mL,disp un (INSULIN SYRINGE-NEEDLE,DISPOS. MISC) 1 (one) time each day. USE WITH INSULIN PEN traZODone (DESYREL) 50 mg tablet Take 1 tablet (50 mg total) by mouth at bedtime. SOCIAL HISTORY: Social History Tobacco Use Smoking status: Never Smokeless tobacco: Never Substance Use Topics Alcohol use: Not Currently Drug use: Yes Types: Marijuana/Cannabis FAMILY HISTORY: Family History Problem Relation Name Age of Onset Hypertension Mother Hyperlipidemia Mother Other (Other: skin cancer) Mother Cataracts Maternal Grandfather Blindness Neg Hx Glaucoma Neg Hx Macular degeneration Neg Hx Strabismus Neg Hx ALLERGIES: (reviewed, flow sheet updated) No Known Allergies ROS: GENERAL: No malaise, significant weight loss or fever NECK: No lumps, goiter, pain or significant neck swelling RESPIRATORY: No cough, wheezing or shortness of breath CARDIAC: No chest pain or palpitations GI: No abdominal discomfort MUSCULOSKELETAL: SEE HPI SKIN: No lesions, rash or itching NEURO: No persistent headache, syncope, seizures, weakness or numbness VASCULAR: SEE HPI PHYSICAL EXAM: Vitals: 10/22/24 0828 BP: 90/60 Pulse: 72 Resp: 16 Weight: 91.6 kg (202 lb) Height: 1.727 m (68 ) General: Alert and oriented by 3 no acute distress, well-nourished HEENT: Normocephalic atraumatic Neck: No JVD, no carotid bruit, carotid pulses present Chest: Clear to auscultation bilaterally Cardiac: Regular rate rhythm Abdomen: Soft, nontender, nondistended, no widened aortic pulse Extremity: -Right upper extremity: 2+ RA -Left upper extremity: 2+ RA -Right lower extremity: Incision from groin to medial calf with ron and sutures. There is an incision with some ron or sutures missing at the medial calf. The thigh still has diffuse ecchymosis which appears older. Incision site is significantly softened up. No serous drainage expressed from thigh incisions and medial calf incision. No dehiscence or sign of infection. Incision cleansed with betadine. ABDs applied and deangelo wrap applied with mild compression, increased compression at the upper thigh. 2+ DP. No foot or ankle swelling. No ulcers on foot. -Left lower extremity: 2+ femoral pulse palpable. No palpable DP or PT. No PT Doppler signal. DP Doppler signal present. Small fissure on the left heel. Integumentary: No wounds Lymphatics: No lymphadenopathy Neuro: Grossly intact DIAGNOSTIC TESTING: Arterial duplex of the right leg, [facility], 10/06/24: Patent SFA-popliteal bypass with large complex collection surrounding bypass graft from upper thigh to calf, 28 x 3.32 x 5.35 cm. I independently reviewed the studies along with the images. ASSESSMENT: 1. PAD (peripheral artery disease) (CMS/HCC) PLAN: 54 y.o. male with PAD s/p right femoral popliteal bypass with rGSV on 09/22/24 complicated by postoperative graft hematoma. Patient has improved since last visit. Ecchymosis and hematoma are slowly resolving. Drainage is decreasing. No sign of infection. Encouraged he continue current care, clean theincisions with betadine daily, triple antibiotic ointment at drainage sites, cover with ABDs, secure with light compression Deangelo. Will place him on 10-day course of prophylactic Keflex 500 mg twice daily. He is advised regarding care of the incision site and is instructed to call if any wound drainage, fever, or other concerns arise. Continue aspirin and statin. Return next week as scheduled for staple/suture removal. Patient may resume driving. Regarding his change in vascular exam with loss of palpable left DP pulse we will start him back onhis Plavix today. Furthermore, we will obtain left lower extremity arterial duplex to evaluate previously placed popliteal stent. Patient was counseled on risk factor modification. We discussed the natural pathophysiology of PAD. 40 minutes spent on patient encounter of which 15 minutes was spent on postoperative care. This time included time spent with patient, chart review, review of imaging/diagnostic studies, all necessary communications and documentation. documented in this encounter Plan of Treatment Upcoming Encounters Date Type Department Care Team (Late st Contact Info) Description 10/26/2024 10:00 AM EST Appointment [facility] Ultrasound [address] [place] [address] 11/01/2024 10:15 AM EST Office Visit Vascular Surgery - [place] [address] [place] [address] Joann Morales PA [address] [facility] [address] [place] [address] 03/28/2025 8:00 AM EDT Office Visit Pulmonolgy - [place] 175 [facility] [address] [place] [address] Laura Foster MD 175 [facility] [address] [place] [address] Scheduled Orders Name Type Priority Associated Diagnoses Order Schedule Vascular US duplex lower extremity arteries left with Doppler Vascular Ultrasound STAT PAD (peripheral artery disease) ([facility]) 1 Occurrences starting 10/22/2024 until 10/22/2025 documented as of this encounter Visit Diagnoses Diagnosis PAD (peripheral artery disease) (CMS/HCC)- Primary Unspecified peripheral vascular disease documented in this encounter Care Teams Server Service Assistant Relationship Specialty Start Date End Date Mary Eubanks MD [address] [facility] , [address] [facility] D/B/A: [facility] [place] [facility] PCP - General Internal Medicine 07/13/21 documented as of this encounter
--- OUTSIDE RECORDS SUMMARY | 2024-10-26 07:15 | XMS_ITS | Clinical Summary ---
Author Organization [facility] Address [address] [place] [address] Phone Care Team Providers Care [employer]er Name Role Phone Mary Eubanks MD Primary Care Provider [phone] Allergies No known active allergies Medications BABY ASPIRIN ORAL Take 81 mg by mouth 1 (one) time each day. Active blood-glucose meter kit 1 each by Not Applicable route 1 (one) time each day. 02/15/20 16 Active NON FORMULARY Inhale into the lungs. SMS-pressure 6-16 Active syr,ndl,ins,sa fe 0.5mL,disp un (INSULIN SYRINGE-NEEDLE ,DISPOS. MISC) 1 (one) time each day. USE WITH INSULIN PEN 01/16/20 21 Active OneTouch Ultra Test test strip 2 (two) times a day. USE TO CHECK BLOOD SUGAR 12/01/19 21 Active carvediloL (COREG) 6.25 mg tablet Take 1 tablet (6.25 mg total) by mouth 2 (two) times a day with meals. 12/20/19 21 Active empagliflozin (Jardiance) 10 mg tablet 1 tablet (10 mg total) 1 (one) time each day. 10/20/19 24 Active gabapentin (NEURONTIN) 100 mg capsule TAKE 2 CAPSULES IN THE MORNING AND 4 CAPSULES AT BEDTIME 12/20/19 21 Active glipiZIDE (GLUCOTROL XL) 2.5 mg 24 hr tablet 2 tablets (5 mg total) at bedtime. 02/19/20 Active insulin glargine (Lantus Solostar U-100 Insulin) 100 unit/mL (3 mL) injection pen 60 Units by subdermal route at bedtime. Patient took 30units 1/7 PM 02/06/20 Active losartan (COZAAR) 50 mg tablet Take 2 tablets (100 mg total) by mouth 1 (one) time each day. 12/19/19 Active metFORMIN (GLUCOPHAGE) 1,000 mg tablet Take 1 tablet (1,000 mg total) by mouth 2 (two) times a day with meals. 01/09/20 Active omeprazole (PriLOSEC) [address] capsule Take 1 capsule (20 mg total) by mouth at bedtime. 09/20/19 Active rosuvastatin (CRESTOR) 20 mg tablet Take 1 tablet (20 mg total) by mouth 1 (one) time each day. 12/16/19 Active traZODone (DESYREL) 50 mg tablet Take 1 tablet (50 mg total) by mouth at bedtime. Active pregabalin (LYRICA) 50 mg capsule Take 1 capsule (50 mg total) by mouth at bedtime. Active oxyCODONE (ROXICODONE) 10 mg immediate release tabletIndicati ons:PAD (peripheral artery disease) (CMS/HCC),S/P vascular surgery Take 1 tablet (10 mg total) by mouth every 4 (four) hours if needed for severe pain. Max Daily Amount: 60 mg 15 tablet 09/26/19 25 Active cephalexin (KEFLEX) 500 mg capsule Take 1 capsule (500 mg total) by mouth 2 (two) times a day for 10 days. 20 each 10/22/19 25 025 Active clopidogreL (PLAVIX) 75 mg tablet Take 1 tablet (75 mg total) by mouth 1 (one) time each day. 12/05/19 21 025 Discontinued acetaminophen (TYLENOL) 500 mg tablet Take 2 tablets (1,000 mg total) by mouth every 6 (six) hours for 10 days. 30 tablet 09/26/19 25 025 Active Problems Problem Noted Date Diagnosed Date S/P vascular surgery 09/22/2024 PAD (peripheral artery disease) 08/30/2024 Diabetes mellitus 11/15/2021 Bilateral carpal tunnel syndrome 04/25/2021 Overview (07/29/2024): Status post nerve conduction studies April 2021. No evidence of superimposed C5-T1 radiculopathy affecting either arm Obesity (BMI 35.0-39.9 without comorbidity) 06/16 Coronary artery disease 02/22/2016 Overview (07/29/2024): - Discovered on preoperative risk assessment stress test prior to vascular surgery -status post CABG in February 2016 with a NUR to the LAD, and veins??to the ramus and OM - Exercise nuclear stress test performed for symptoms of chest discomfort and also preop for another vascular surgery in November 2021- He was able to walk for 6 minutes, achieving 85% of his MPHR, a 7 MET workload, without symptoms. ??Nuclear images showed a medium size, severe in intensity mid anterior and apical anterior infarct without significant infarct ischemia after attenuation correction was applied with normal TID ratio, and normal LVEF at 56% - Echocardiogram in November 2020 showed low normal LVEF 50-55%, hypokinesis to akinesis of the apical and apical lateral dhillon, without clear thrombus at the apex, and without hemodynamically significant valve disease, normal RV systolic function - More recent echocardiogram in November 2022 again showed probably low normal or mildly impaired LV systolic function with apical hypokinesis or akinesis, no Doppler evidence of hemodynamically significant valve disease- poorer quality study compared with November 2020 Last Assessment & Plan: Clinically euvolemic on exam, no real recurrent anginal symptoms. Continue current carvedilol, rosuvastatin, Plavix, aspirin Type 2 diabetes mellitus wit h diabetic peripheral angiopathy without gangrene 08/30/2015 Peripheral arterial disease 06/28/2015 Overview (07/29/2024): - Status post bilateral percutaneous treatments of the SFA and popliteal arteries,??and bilateral popliteal stenting remotely - Status post shockwave lithotripsy followed by DCB of his right [employer] UNDERWR[employer] for worsening right lower extremity pain in 2018 - Status post extensive femoral artery endarterectomy on the right SFA distally into the proximal popliteal artery with angioplasty and drug-eluting balloon in December 2021 for refractory claudication- he did have good improvement of symptoms - Status post shockwave angioplasty of left popliteal artery stent on 08/05/2023 with temporary improvement in symptoms - Repeat angiography was performed on 03/30/2024 and unfortunately, no intervention could be performed after multiple attempts to totally occluded prior left popliteal stent with subsequent occluded/severely diseased posterior tibial artery Last Assessment & Plan: Continue follow-up with Dr. Taveras Anxiety 08/11/2013 GERD (gastroesophageal reflux disease) 2 Primary hypertension 04/30/2012 Overview (07/29/2024): Last Assessment & Plan: Normally reasonably controlled at home. Patient did not take his a.m. meds this morning which accounts for today's elevated blood pressure. Mixed hyperlipidemia 07/26/2011 Overview (07/29/2024): Last Assessment & Plan: Continue current rosuvastatin though I will look into whether or not we have tried increasing him to the maximal dose-if not, I would probably favor this, would plan to check apolipoprotein B 100 levels from here on out given that elevated triglycerides can falsely lower calculated LDL: Ideally, I would like to get him on Vascepa as well given his hypertriglyceridemia and improved hard outcomes on this agent; that said, his A1c has gone down since his last lipids were checked in our records-will plan to call his PCPs office to get a sense of what his more recent labs are showing and go from there Obstructive sleep apnea syndrome 02/22/2009 Overview (07/29/2024): On CPAP Osteoarthritis of knee 01/30/2009 Overview (07/29/2024): Hx arthroscopies: X 4 on R and 1 on L. Right TKR, 08/25 Resolved Problems Problem Noted Date Diagnosed Date Resolved Date Tachycardia 09/24/2024 09/26/2024 Postoperative hypertension 09/22/2024 0 09/26/2024 Hypertensive emergency 09/22/202409/26 Encounters Date Type Department Care Team Description 10/22/2024 8:30 AM EST Office Visit Vascular Surgery - [place] [address] [place] [address] Harry Taveras MD PAD (peripheral artery disease) ([facility]/HCC) (Primary Dx) 10/12/2024 9:00 AM EST Office Visit Vascular Surgery - [address] [phone] Joann Morales PA Peripheral arterial disease (CMS/HCC) (Primary Dx) 10/07/2024 2:45 PM EST - 10/07/2024 11:59 PM EST Hospital Encounter [facility] Ultrasound [address] [place] [phone] PAD (peripheral artery disease) (CMS/HCC); Aneurysm of left popliteal artery (CMS/HCC) Discharge Disposition: Home or Self Care 10/06/2024 1:30 PM EST Office Visit Vascular Surgery - [address] [phone] Arleen Powers MD PAD (peripheral artery disease) ([facility]/HCC) (Primary Dx); Aneurysm of left popliteal artery ([facility]/HCC) 10/03/2024 Nurse Triage Vascular Surgery - [address] [phone] Harry Taveras MD 09/29/2024 Telephone Vascular Surgery - [address] [phone] Harry Taveras MD Provider Call Back 09/22/2024 11:03 AM EST Anesthesia Event [facility] Main OR [address] [place] [phone] Armadno Putnam MD Gomes, Sheldon B, MD 09/22/2024 11:00 AM EST - 09/22/2024 2:30 PM EST Surgery [facility] Main OR [address] [place] [phone] Harry Taveras MD Right Femoral Popliteal Bypass w/greater Saphenous Vein [25543 (CPT??)] 09/22/2024 9:34 AM EST - 09/26/2024 2:09 PM EST Hospital Encounter [facility] [address] [place] [phone] Harry Taveras MD Levrault, Richard, DO Jones, Christopher, MD Tachycardia (Primary Dx); PAD (peripheral artery disease) ([facility]/HCC); S/P vascular surgery; Hypertensive emergency; Postoperative hypertension; Peripheral arterial disease (CMS/HCC); Obstructive sleep apnea syndrome Discharge Disposition: Home or Self Care 08/30/2024 9:30 AM EST Office Visit Vascular Surgery [address] [phone] Harry Taveras MD PAD (peripheral artery disease) ([facility]/HCC) (Primary Dx) 08/23/2024 1:03 PM EST - 08/23/2024 11:59 PM EST Hospital Encounter [facility] [address] [place] [phone] PAD (peripheral artery disease) ([facility]/HCC) Discharge Disposition: Home or Self Care 08/20/2024 1:48 PM EST - 08/20/2024 11:59 PM EST Hospital Encounter [facility] CT Scan [address] [place] [phone] PAD (peripheral artery disease) ([facility]/HCC) Discharge Disposition: Home or Self Care 08/17/2024 2:15 PM EST Office Visit Vascular Surgery [address] [phone] Joann Morales PA PAD (peripheral artery disease) ([facility]/HCC) (Primary Dx) 07/28/2024 Telephone Vascular Surgery [address] [phone] Harry Taveras MD provider call back from Last 3 Months Immunizations Name Administration Dates Next Due Hepatitis B (Yvsrwai-V-Ikdqe , Recombivax HB-Adult) 19yo and older 03/21/2005,10/22/2004,09/19/2004 Influenza Quadravalent, MDCK , 0.5ml, preservative free (Flucelvax) 6mo and older 10/13/2020,07/06/2019,05/26/2018 Influenza Quadravalent, MDCK , 0.5ml, with preservative (Flucelvax) 6mo and older 06/06/2017 Influenza trivalent, 0.5mL, preservative free (Fluarix; FluLaval; Fluzone) ages 6mo and older (Afluria) 3 years and older 06/27/2016,08/31/2015,08/17/2014,06/03,09/16/2012,07/26/2011 MMR, measles mumps and rubel la Live (Priorix; M-M-R II) 12mo and older 03/27/2011,02/27/2011 Pneumococcal polysaccharide 23 valent (Pneumovax 23) 2yo and older 07/26/2011 Tdap Tetanus diptheria acell ular pertussis (Boostrix; Adacel) 7yo and older 02/14/2011 Surgical History Surgery Date Site/Laterality Comments KNEE ARTHROSCOPY W/ DEBRIDEMENT , 2006 PROCEDURE: DC ARTHRS KNEE DEBRIDEMENT/SHAVING ARTCLR CRTLG; COMMENT: Left and right TOTAL KNEE ARTHROPLASTY 08/15/2011 PROCEDURE: DC ARTHRP KNE CONDYLE&PLATU MEDIAL&LAT COMPARTMENTS; COMMENT: right OTHER SURGICAL HISTORY 02/14/2016 PROCEDURE: DC CABG W/ARTERIAL GRAFT THREE ARTERIAL GRAFTS; COMMENT: Dr. Barksdale OTHER SURGICAL HISTORY 08/05/2023 PROCEDURE: DC REVSC OPN/PRG FEM/POP W/ANGIOPLASTY UNI OTHER SURGICAL HISTORY 08/05/2023 PROCEDURE: DC REVASC INTRAVASC LITHOTRIPSY OTHER SURGICAL HISTORY 08/05/2023 PROCEDURE: ULTRASOUND GUIDANCE FOR VASCULAR AC OTHER SURGICAL HISTORY 03/30/2024 PROCEDURE: DC SLCTV CATHJ 3RD+ ORD SLCTV ABDL PEL/LXTR BRNCH OTHER SURGICAL HISTORY 03/30/2024 PROCEDURE: DC SLCTV CATHJ EA 2ND+ ORD ABDL PEL/LXTR ART BRNCH; COMMENT: x2 OTHER SURGICAL HISTORY 03/30/2024 PROCEDURE: X-RAY EXAM OF ARM/LEG ARTERY OTHER SURGICAL HISTORY 03/30/2024 PROCEDURE: X-RAY EXAM OF PELVIC ARTERIES OTHER SURGICAL HISTORY 03/30/2024 PROCEDURE: ULTRASOUND GUIDANCE FOR VASCULAR AC CORONARY ARTERY BYPASS GRAFT JOINT REPLACEMENT Right KNEE ARTHROPLASTY Bilateral VEIN SURGERY Medical History Medical History Date Comments Osteoarthritis of knee 01/30/2009 DX:Osteoa rthritis of knee Obesity, unspecified 08/28/2005 DX:Obesity, unspecified Hypersomnia with sleep apnea , unspecified 08/28/2005 DX:Hypersomnia with sleep ap nisa, unspecified Type II or unspecified type diabetes mellitus with unspecified complication, not stated as uncontrolled DX:Type II or unspecified ty pe diabetes mellitus with unspecified complication, not stated as uncontrolled Hypertension 04/30/2012 DX:Hypertension GERD (gastroesophageal reflux disease) 2 DX:GERD (gastroesophageal reflux disease) Anxiety 08/11/2013 DX:Anxiety Coronary artery disease 02/22/2016 DX:Coron sofya artery disease; COMMENT: 02/21/16 cardiac cath: mult-vessel disease. CABG planned Obesity (BMI 35.0-39.9 witho ut comorbidity) 07/04/2019 DX:Obesity (BMI 35.0-39.9 wi thout comorbidity) Diabetes mellitus ([facility]) DX:D iabetes mellitus ([facility]) Dyslipidemia DX:Dyslipidemia Neuropathy DX:Neuropathy TOBY on CPAP DX:TOBY on CPAP Hyperlipidemia Peripheral vascular disease ([facility]/HCC) Heart disease Myocardial infarction ([facility]) Family History Medical History Relation Name Comments Cataracts Maternal Grandfather Hyperlipidemia Mother Hypertension Mother Other: skin cancer Mother Blindness Neg Hx Glaucoma Neg Hx Macular degeneration Neg Hx Strabismus Neg Hx Relation Name Status Comments Maternal Grandfather Mother Social History Tobacco Use Types Packs/Day Years Used Date Smoking Tobacco: Never Smokeless Tobacco: Never Tobacco Cessation:Counseling Given: Not Answered Alcohol Use Standard Drinks/Week Comments Not Currently [...] care for your loved ones. For example, children's counselor or elderly care for an older [...] Orientation Straight 09/17/2024 10 :59 AM EST Obstetrics History Last Filed Vital Signs Vital Sign Reading Time Taken Comments Blood Pressure 90/60 10/22/2024 8:28 AM EST Pulse 72 10/22/2024 8:28 AM EST Temperature 37 ??C (98.6 ??F) 09/26/2024 12:05 PM EST Respiratory Rate 16 10/22/2024 8:28 AM EST Oxygen Saturation 100% 09/26/2024 12:05 PM EST Inhaled Oxygen Concentration - - Weight 91.6 kg (202 lb) 10/22/2024 8:28 AM EST Height 172.7 cm (5' 8 ) 10/22/2024 8:28 AM EST Body Mass Index 30.71 10/22/2024 8:28 AM EST Plan of Treatment Upcoming Encounters Date Type Department Care Team (Late st Contact Info) Description 10/26/2024 10:00 AM EST Appointment [facility] [address] [place] [phone] 11/01/2024 10:15 AM EST Office Visit Vascular Surgery - [place] [address] [facility] [address] [place] [phone] Joann Morales PA [address] [facility] [address] [place] [address] 03/28/2025 8:00 AM EDT Office Visit Pulmonolgy - [place] [address] [facility] [address] [place] [phone] Laura Foster MD [address] [facility] [address] [place] [address] Health Maintenance Due Date Last Done Comments Diabetes: Annual Foot Exam 1980 Diabetes: Annual Retina Eye Exam 1980 Hepatitis A Vaccines (1 of 2 - Risk 2-dose series) 1989 DTaP,Tdap,and Td Vaccines (2 - Td or Tdap) 03/14/2011 02/14/2011 Pneumococcal Vaccine: 50+ Years (2 of 2 - PCV) 03/04/2017 03/04/2016, 07/26/2011 Pneumococcal Vaccine: Pediatrics (0 to 5 Years) and At-Risk Patients (6 to 64 Years) (2 of 2 - PCV) 03/04/2017 03/04/2016, 07/26/2011 Zoster Vaccines (1 of 2) 2020 Colorectal Cancer Screening: Colonoscopy 08/24/2022 Depression Screening 08/24/2022 HIV Screening 08/24/2022 Hepatitis C Screening 08/24/2022 Diabetes: Annual Urine Albumin-Creatinine Ratio (uACR) 08/31/2022 04/17/2020 Diabetes: Blood Sugar Control Test (HGBA1C) 08/31/2022 10/06/2020 Cholesterol Screening (Lipid Panel) 04/03/2025 04/03/2020 Social Influencers of Health Screening 09/22/2025 09/22/2024 Diabetes: Annual GFR (Glomerular Filtration Rate) 09/25/2025 09/25/2024, 09/24/2024, 09/23/2024, Additional history exists Hypertension/CHF/CAD Annual BMP Blood Test 09/25/2025 09/25/2024, 09/24/2024, 09/23/2024, Additional history exists Hepatitis B Vaccines Completed 03/21/2005, 10/22/2004, 09/19/2004 MMR Vaccines Aged Out 03/27/2011, 02/27/2011 No lo nger eligible based on patient's age to complete this topic COVID-19 Vaccine Completed 07/09/2024, 11/2022, 05/22/2022, Additional history exists Influenza Vaccine Completed 07/09/2024, , 06/30/2021, Additional history exists HIB Vaccines Aged Out No longer eligi ble based on patient's age to complete this topic HPV Vaccines Aged Out No longer eligi ble based on patient's age to complete this topic IPV Vaccines Aged Out No longer eligi ble based on patient's age to complete this topic Meningococcal ACWY Vaccine Aged Out N o longer eligible based on patient's age to complete this topic Meningococcal B Vacine Aged Out No lo nger eligible based on patient's age to complete this topic RSV Immunization Patients Under 20 months Aged Out No longer eligible based on patient's age to complete this topic Varicella Vaccines Aged Out No longer eligible based on patient's age to complete this topic Medical Devices Implanted Type Area Insecticide Expert Device Identifier Shelf Expiration Date Model / Serial / Lot Hemostat Absorb Surgicel 2x4in Fibrillar - Sn/A - [id number] Implanted:Qty: 1 on 09/22/2024 by Harry Taveras MD at [facility] Hemostasis Right: Leg [facility] [employer] 09/14/20262 / N/A / [id number] Sealant Fibrin Vistaseal 10ml - [id number] - [id number] Implanted:Qty: 1 on 09/22/2024 by Harry Taveras MD at [facility] Hemostasis Right: Leg [facility] [employer] 05/19/2026 VST10 / [id number] / [id number] Joints Knee Joints Knee Right: Knee Stents Stents Bilatera l: Leg Procedures Procedure Name Priority Date/Time Associated Diagnosis Comments VAS US DUPLEX LOWER EXT ART RIGHT W DOPPLER Routine 10/07/2024 5:10 PM EST PAD (peripheral artery disease) (CMS/HCC) Aneurysm of left popliteal artery (CMS/HCC) POCT GLUCOSE BLOOD Routine 09/26/2024 12 :06 PM EST POCT GLUCOSE BLOOD Routine 09/26/2024 9: 12 AM EST POCT GLUCOSE BLOOD Routine 09/26/2024 2: 51 AM EST POCT GLUCOSE BLOOD Routine 09/25/2024 8: 11 PM EST POCT GLUCOSE BLOOD Routine 09/25/2024 4: 47 PM EST POCT GLUCOSE BLOOD Routine 09/25/2024 1: [address] ANGIO CHEST WO AND/OR W CONTRAST STAT 09/25/2024 9:21 AM EST Tachycardia S/P vascular surgery POCT GLUCOSE BLOOD Routine 09/25/2024 6: 38 AM EST CBC WITH AUTO DIFFERENTIAL Routine 09/25/2024 6:31 AM EST BASIC METABOLIC PANEL Routine 09/25/2024 6:31 AM EST CBC AND DIFFERENTIAL Routine 09/25/2024 6:31 AM EST CPAP NIV Routine 09/24/2024 10:00 PM EST POCT GLUCOSE BLOOD Routine 09/24/2024 4: 26 PM EST POCT GLUCOSE BLOOD Routine 09/24/2024 11 :19 AM EST POCT GLUCOSE BLOOD Routine 09/24/2024 7: 41 AM EST CBC WITH AUTO DIFFERENTIAL Routine 09/24/2024 4:00 AM EST CBC AND DIFFERENTIAL Routine 09/24/2024 4:00 AM EST PHOSPHORUS Routine 09/24/2024 4:00 AM EST MAGNESIUM Routine 09/24/2024 4:00 AM EST CALCIUM, IONIZED Routine 09/24/2024 4:00 AM EST BASIC METABOLIC PANEL Routine 09/24/2024 4:00 AM EST POCT GLUCOSE BLOOD Routine 09/23/2024 11 :31 PM EST CPAP NIV Routine 09/23/2024 10:00 PM EST POCT GLUCOSE BLOOD Routine 09/23/2024 5: 23 PM EST POCT GLUCOSE BLOOD Routine 09/23/2024 11 :26 AM EST LT BLUE - NA CITRATE Routine 09/23/2024 4:25 AM EST EXTRA TUBES Routine 09/23/2024 4:25 AM EST CALCIUM, IONIZED Routine 09/23/2024 4:25 AM EST PHOSPHORUS Routine 09/23/2024 4:25 AM EST MAGNESIUM Routine 09/23/2024 4:25 AM EST BASIC METABOLIC PANEL Routine 09/23/2024 4:25 AM EST COMPLETE BLOOD COUNT Routine 09/23/2024 4:25 AM EST POCT GLUCOSE BLOOD Routine 09/22/2024 11 :06 PM EST RESPIRATORY VIRUS PANEL MOLECULAR STUDY STAT 09/22/2024 10:13 PM EST MRSA PCR Routine 09/22/2024 10:13 PM EST CPAP NIV Routine 09/22/2024 10:01 PM EST POCT GLUCOSE BLOOD Routine 09/22/2024 8: 37 PM EST CBC WITH AUTO DIFFERENTIAL Routine 09/22/2024 6:31 PM EST HEPATIC FUNCTION PANEL Routine 09/22/2024 6:31 PM EST FIBRINOGEN Routine 09/22/2024 6:31 PM EST CBC AND DIFFERENTIAL Routine 09/22/2024 6:31 PM EST PROTHROMBIN TIME WITH INR Routine 09/22/2024 6:31 PM EST PHOSPHORUS Routine 09/22/2024 6:31 PM EST MAGNESIUM Routine 09/22/2024 6:31 PM EST CALCIUM, IONIZED Routine 09/22/2024 6:31 PM EST BASIC METABOLIC PANEL Routine 09/22/2024 6:31 PM EST POCT GLUCOSE BLOOD Routine 09/22/2024 6: 17 PM EST TRANSFUSE PLATELETS Routine 09/22/2024 5 :50 PM EST CPAP NIV Routine 09/22/2024 5:10 PM EST PREPARE PLATELETS Routine 09/22/2024 4:5 5 PM EST POCT GLUCOSE BLOOD Routine 09/22/2024 3: 50 PM EST POCT ACTIVATED CLOTTING TIME, KAOLIN Routine 09/22/2024 2:26 PM EST POCT ACTIVATED CLOTTING TIME, KAOLIN Routine 09/22/2024 1:53 PM EST POCT ACTIVATED CLOTTING TIME, KAOLIN Routine 09/22/2024 1:36 PM EST TISSUE EXAM Routine 09/22/2024 1:22 PM EST PAD (peripheral artery disease) (CMS/HCC) POCT ACTIVATED CLOTTING TIME, KAOLIN Routine 09/22/2024 1:18 PM EST ANESTHESIA PERIPHERAL IV PLACEMENT Routine 09/22/2024 11:41 AM EST TH AN ENDOTRACHEAL(NO CHARGE) Routine 09/22/2024 11:40 AM EST DC IN-SITU VEIN BYPASS FEMORAL POPLITEAL 09/22/2024 11:03 AM EST PAD (peripheral artery disease) (CMS/HCC) Case Notes ICU BED, Vascular table,INPT POCT GLUCOSE BLOOD Routine 09/22/2024 9: 57 AM EST CBC WITH AUTO DIFFERENTIAL Routine 09/17/2024 11:06 AM EST PAD (peripheral artery disease) (CMS/HCC) TYPE AND SCREEN Routine 09/17/2024 11:06 AM EST PAD (peripheral artery disease) (CMS/HCC) ACTIVATED PARTIAL THROMBOPLASTIN TIME Routine 09/17/2024 11:06 AM EST PAD (peripheral artery disease) (CMS/HCC) PROTHROMBIN TIME WITH INR Routine 09/17/2024 11:06 AM EST PAD (peripheral artery disease) (CMS/HCC) MAGNESIUM Routine 09/17/2024 11:06 AM EST PAD (peripheral artery disease) (CMS/HCC) CBC AND DIFFERENTIAL Routine 09/17/2024 11:06 AM EST PAD (peripheral artery disease) (CMS/HCC) BASIC METABOLIC PANEL Routine 09/17/2024 11:06 AM EST PAD (peripheral artery disease) (CMS/HCC) PROCEDURAL ECG Routine 09/17/2024 10:55 AM EST PAD (peripheral artery disease) (CMS/HCC) VAS US DUPLEX LOWER EXT VEIN MAP BILAT STAT 08/23/2024 1:47 PM EST PAD (peripheral artery disease) (CMS/HCC) CT ANGIO ABDOMINAL AORTA W RUNOFF STAT 08/20/2024 2:09 PM EST PAD (peripheral artery disease) (CMS/HCC) BASIC METABOLIC PANEL Routine 08/18/2024 12:33 PM EST PAD (peripheral artery disease) (CMS/HCC) HEMOGLOBIN A1C Routine 10/06/2020 HM URINE ALBUMIN CREATININE RATIO Routine 04/17/2020 LIPID PANEL Routine 04/03/2020 from Last 3 Months or Most Recently Relevant to Health Maintenance Results * Vascular US duplex lower extremity [...] Signed Date: 10/12/2024 09:41 ET Workstation ID: [id number] Transcribed By: Self Edit Transcribed Date: 10/12/2024 09:31 ET Narrative 10/12/2024 9:41 AM EST INDICATION: Peripheral arterial disease status post bypass TECHNIQUE: Arterial duplex imaging obtained of the right ??lower extremity. Prior relevant imaging studies: CTA of the aorta and lower extremities from August 20, 2024 Right leg: Common femoral artery: 53 cm/s with triphasic waveform Superficial femoral artery: Occlusion of the [place] vessel distally. Patent proximal SFA bypass graft [...] waveform Superficial femoral artery: Occlusion of the [place] vessel distally.Patent proximal SFA bypass graft with [...] Signed Date: 10/12/2024 09:41 ET Workstation ID: [id number] Transcribed By: Self Edit Transcribed Date: 10/12/2024 09:31 ET us Harry Taveras MD CV VASCULAR PROCEDURES Final Re sult * (ABNORMAL) POCT Glucose, blood (09/26/2024 12:06 PM EST) Only the most recent of18 resultswithin the time period is included. Glucose POCT 191(H) 70 - 100 mg/dL 09/26/2024 12:07 PM EST [facility] Blood Capillary blood specimen / Unknown 09/26/2024 12:06 PM EST 09/26/2024 12:08 PM EST us Boo Matthews DO LAB POINT OF CARE TE ST DOCKED DEVICE UNSOLICITED RESULTS Final Result [facility] [address] [place] [address], [place] [phone] * CT Angio Chest wo and/or w Contrast (09/25/2024 9:21 AM EST) Anatomical Region Laterality Modality Body Computed Tomogra phy 09/25/2024 9:46 AM EST Impressions 09/25/2024 9:51 AM EST 1. ??No pulmonary embolism. 2. ??Lungs are clear bilaterally. -------- FINAL REPORT -------- Dictated By: Jesse Celestin Dictated Date: 09/25/2024 09:46 ET Assigned Physician: Jesse Celestin Reviewed and Electronically Signed By: Jesse Celestin Signed Date: 09/25/2024 09:51 ET Workstation ID: [id number] Transcribed By: Self Edit Transcribed Date: 09/25/2024 09:46 ET Narrative 09/25/2024 9:51 AM EST PROCEDURE: CT angiogram of the chest. INDICATION: Shortness of breath TECHNIQUE: Chest CTA with intravenous administration of 90cc ISOVUE-370. Multi planar reformats were created and interpreted. The examination was performed utilizing dose reduction techniques.3-D or MIP images were produced with postprocessing on an independent computer workstation. ?? DOSE: CTDIvol: 9.4/18.3mGy. ??Total exam DLP: 615.6mGy-cm COMPARISON: ??None FINDINGS: VASCULATURE: No pulmonary embolism. ??Atherosclerotic disease of the aorta without aneurysm. LUNGS/PLEURA: Lungs are clear bilaterally. ??No consolidation or effusion. MEDIASTINUM: No significant mediastinal lymphadenopathy. ??Coronary atherosclerotic disease. CHEST WALL: No significant axillary lymphadenopathy. UPPER ABDOMEN:The visualized portions of the upper abdomen are unremarkable. BONES: Mild degenerative changes of the thoracic spine. Procedure Note Jesse Celestin MD - 09/25/2024 PROCEDURE: CT angiogram of the chest. INDICATION: Shortness of breath TECHNIQUE: Chest CTA with intravenous administration of 90cc ISOVUE-370.Multi planar reformats were created and interpreted. The examination wasperformed utilizing dose reduction techniques.3-D or MIP images wereproduced with postprocessing on an independent computer workstation. DOSE: CTDIvol: 9.4/18.3mGy. Total exam DLP: 615.6mGy-cm COMPARISON: None FINDINGS: VASCULATURE: No pulmonary embolism. Atherosclerotic disease of the aortawithout aneurysm. LUNGS/PLEURA: Lungs are clear bilaterally. No consolidation oreffusion. MEDIASTINUM: No significant mediastinal lymphadenopathy. Coronaryatherosclerotic disease. CHEST WALL: No significant axillary lymphadenopathy. UPPER ABDOMEN:The visualized portions of the upper abdomen areunremarkable. BONES: Mild degenerative changes of the thoracic spine. IMPRESSION: 1. No pulmonary embolism. 2. Lungs are clear bilaterally. -------- FINAL REPORT -------- Dictated By: Jesse Celestin Dictated Date: 09/25/2024 09:46 ET Assigned Physician: Jesse Celestin Reviewed and Electronically Signed By: Jesse Celestin Signed Date: 09/25/2024 09:51 ET Workstation ID: [id number] Transcribed By: Self Edit Transcribed Date: 09/25/2024 09:46 ET Nelly [facility] [place] CT PROCEDURES Final Result * (ABNORMAL) CBC auto differential (09/25/2024 6:31 AM EST) Only the most recent of4 resultswithin the time period is included. WBC 6.3 4.8 - 10.8 K/mcL LAB HEMETOLOGY METHOD 09/25/2024 7:58 AM [facility] RBC 2.70(L) 4.50 - 5.50 M/mcL LAB HEMETOLOGY METHOD 09/25/2024 7:58 AM [facility] Hemoglobin 8.4(L) 13.5 - 17.5 g/dL LAB HEMETOLOGY METHOD 09/25/2024 7:58 AM [facility] Hematocrit 25.2(L) 42.0 - 54.0 % LAB HEMETOLOGY METHOD 09/25/2024 7:58 AM [facility] MCV 92.3 79.0 - 98.0 FL LAB HEMETOLOGY METHOD 09/25/2024 7:58 AM [facility] MCH 30.8 27.0 - 32.0 pcg LAB HEMETOLOGY METHOD 09/25/2024 7:58 AM [facility] MCHC 33.3 32.0 - 37.0 g/dL LAB HEMETOLOGY METHOD 09/25/2024 7:58 AM [facility] RDW 14.0 11.0 - 15.0 % LAB HEMETOLOGY METHOD 09/25/2024 7:58 AM [facility] Platelets 189 130 - 400 K/mcL LAB HEMETOLOGY METHOD 09/25/2024 7:58 AM [facility] MPV 9.4 7.0 - 11.0 FL LAB HEMETOLOGY METHOD 09/25/2024 7:58 AM [facility] NRBC 0.0 <1.0 % LAB HEMETOLOGY METHOD 09/25/2024 7:58 AM [facility] NRBC Absolute 0.00 <0.10 K/mcL LAB HEMETOLOGY METHOD 09/25/2024 7:58 AM [facility] Neutrophils Relative 58.7 % LAB HEMETOLOGY METHOD 09/25/2024 7:58 AM [facility] Lymphocytes Relative 28.4 % LAB HEMETOLOGY METHOD 09/25/2024 7:58 AM [facility] Monocytes Relative 10.9 % LAB HEMETOLOGY METHOD 09/25/2024 7:58 AM [facility] Eosinophils Relative 1.4 % LAB HEMETOLOGY METHOD 09/25/2024 7:58 AM [facility] Basophils Relative 0.3 % LAB HEMETOLOGY METHOD 09/25/2024 7:58 AM [facility] Immature Granulocytes Relative 0.3 % LAB HEMETOLOGY METHOD 09/25/2024 7:58 AM [facility] Neutrophils Absolute 3.71 1.50 - 7.00 K/mcL LAB HEMETOLOGY METHOD 09/25/2024 7:58 AM [facility] Lymphocytes Absolute 1.80 1.00 - 5.00 K/mcL LAB HEMETOLOGY METHOD 09/25/2024 7:58 AM [facility] Monocytes Absolute 0.69 0.20 - 1.00 K/mcL LAB HEMETOLOGY METHOD 09/25/2024 7:58 AM [facility] Eosinophils Absolute 0.09 0.00 - 0.50 K/mcL LAB HEMETOLOGY METHOD 09/25/2024 7:58 AM [facility] Basophils Absolute 0.02 0.00 - 0.20 K/mcL LAB HEMETOLOGY METHOD 09/25/2024 7:58 AM [facility] Immature Granulocytes Absolute 0.02 0.00 - 0.03 K/mcL LAB HEMETOLOGY METHOD 09/25/2024 7:58 AM [facility] Blood Venous blood specimen / Unknown Venipuncture / Unknown 09/25/2024 6:31 AM EST 09/25/2024 7:11 AM EST us Nelly [facility] LAB BLOOD ORDERABLES Final Res ult [facility] [address] [place] [address], * (ABNORMAL) Basic metabolic panel (09/25/2024 6:31 AM EST) Only the most recent of6 resultswithin the time period is included. Sodium 137 133 - 145 mmol/L LAB CHEMISTRY METHOD 09/25/2024 7:[address] [facility] Potassium 3.8 3.5 - 5.5 mmol/L LAB CHEMISTRY METHOD 09/25/2024 7:50 AM [facility] Chloride 104 96 - 110 mmol/L LAB CHEMISTRY METHOD 09/25/2024 7:50 AM [facility] CO2 27 21 - 32 mmol/L LAB CHEMISTRY METHOD 09/25/2024 7:[address] [facility] Anion Gap 6 3 - 11 LAB CHEMISTRY METHOD 09/25/2024 7:50 AM [facility] Glucose 108(H) 70 - 100 mg/dL LAB CHEMISTRY METHOD 09/25/2024 7:50 AM [facility] BUN 17 5 - 25 mg/dL LAB CHEMISTRY METHOD 09/25/2024 7:50 AM [facility] Creatinine 0.74 0.70 - 1.30 mg/dL LAB CHEMISTRY METHOD 09/25/2024 7:50 AM [facility] eGFR 108 >=60 mL/min/1. 73m2 LAB CHEMISTRY METHOD 09/25/2024 7:50 AM [facility] Comment:Calculation based on the??Chronic Kidney Disease Epidemiology Collaboration (CKD-EPI) equation refit??without adjustment for race. BUN/Creatinine Ratio 23.0 LAB CHEMISTRY METHOD 09/25/2024 7:50 AM [facility] Calcium 8.6 8.5 - 10.5 mg/dL LAB CHEMISTRY METHOD 09/25/2024 7:[address] [facility] Blood Venous blood specimen / Unknown Venipuncture / Unknown 09/25/2024 6:31 AM EST 09/25/2024 7:11 AM EST Nelly [facility] LAB BLOOD ORDERABLES Final Res ult Performing Organization Address City/[facility]/ZIP Co de Phone Number [facility] [address] [place] [address], [place] [phone] * Phosphorus (09/24/2024 4:00 AM EST) Only the most recent of3 resultswithin the time period is included. Phosphorus 3.8 2.5 - 4.5 mg/dL LAB CHEMISTRY METHOD 09/24/2024 4:[address] [facility] Blood Venous blood specimen / Unknown Venipuncture / Unknown 09/24/2024 4:00 AM EST 09/24/2024 4:04 AM EST us Boo Matthews DO LAB BLOOD ORDERABLES Final R esult Performing Organization Address [facility] de Phone Number [facility] [address] [place] [address], [place] [phone] * (ABNORMAL) Magnesium (09/24/2024 4:00 AM EST) Only the most recent of4 resultswithin the time period is included. Magnesium 1.6(L) 1.9 - 2.6 mg/dL LAB CHEMISTRY METHOD 09/24/2024 4:[address] [facility] Blood Venous blood specimen / Unknown Venipuncture / Unknown 09/24/2024 4:00 AM EST 09/24/2024 4:04 AM EST Boo Matthews DO LAB BLOOD ORDERABLES Final R esult Performing Organization Address City/[facility] Co de Phone Number [facility] [address] [place] [address], [place] [phone] * Calcium, ionized (09/24/2024 4:00 AM EST) Only the most recent of3 resultswithin the time period is included. Calcium Ionized 4.75 4.50 - 5.30 mg/dL 09/24/2024 5:[address] [facility] Blood Venous blood specimen / Unknown Venipuncture / Unknown 09/24/2024 4:00 AM EST 09/24/2024 4:04 AM EST Boo Matthews [facility] BLOOD ORDERABLES [facility] Performing Organization Address [facility] Co de Phone Number [facility] [address] [place] [address], * Light blue tube (09/23/2024 4:25 AM EST) Extra Tube Hold for add-ons. 09/23/2024 6:[address] [facility] Comment:Auto resulted. Blood Venous blood specimen / Unknown Venipuncture / Unknown 09/23/2024 4:25 AM EST 09/23/2024 4:42 AM EST Boo Matthews LAB BLOOD ORDERABLES Final R esult Performing Organization Address City/[facility]/ZIP Co de Phone Number [facility] [address] [place] [address], [place] [phone] * (ABNORMAL) Complete blood count (09/23/2024 4:25 AM EST) WBC 10.8 4.8 - 10.8 K/[facility] LAB HEMETOLOGY METHOD 09/23/2024 4:[address] [facility] RBC 3.30(L) 4.50 - 5.50 M/mcL LAB HEMETOLOGY METHOD 09/23/2024 4:58 AM [facility] Hemoglobin 10.3(L) 13.5 - 17.5 g/dL LAB HEMETOLOGY METHOD 09/23/2024 4:58 AM [facility] Hematocrit 30.2(L) 42.0 - 54.0 % LAB HEMETOLOGY METHOD 09/23/2024 4:58 AM [facility] MCV 91.8 79.0 - 98.0 FL LAB HEMETOLOGY METHOD 09/23/2024 4:58 AM [facility] MCH 31.3 27.0 - 32.0 pcg LAB HEMETOLOGY METHOD 09/23/2024 4:58 AM [facility] MCHC 34.1 32.0 - 37.0 g/dL LAB HEMETOLOGY METHOD 09/23/2024 4:58 AM [facility] RDW 13.5 11.0 - 15.0 % LAB HEMETOLOGY METHOD 09/23/2024 4:58 AM [facility] Platelets 197 130 - 400 K/mcL LAB HEMETOLOGY METHOD 09/23/2024 4:58 AM [facility] MPV 8.8 7.0 - 11.0 FL LAB HEMETOLOGY METHOD 09/23/2024 4:58 AM [facility] NRBC 0.0 <1.0 % LAB HEMETOLOGY METHOD 09/23/2024 4:58 AM [facility] NRBC Absolute 0.00 <0.10 K/mcL LAB HEMETOLOGY METHOD 09/23/2024 4:58 AM [facility] Blood Venous blood specimen / Unknown Venipuncture / Unknown 09/23/2024 4:25 AM EST 09/23/2024 4:40 AM EST us Joann [facility]WARD LAB BLOOD ORDERABLES Final Re sult [facility] [address] [place] [address], * Respiratory virus panel molecular study (09/22/2024 10:13 PM EST) Adenovirus Detection by PCR Not Detected Not Detected LAB MICROBIOLOGY METHOD 09/22/2024 11:[address] [facility] Influenza A PCR Not Detected Not Detected LAB MICROBIOLOGY METHOD 09/22/2024 11:[address] [facility] Influenza B PCR Not Detected Not Detected LAB MICROBIOLOGY METHOD 09/22/2024 11:[address] [facility] Coronavirus 229E Not Detected Not Detected LAB MICROBIOLOGY METHOD 09/22/2024 11:27 PM [facility] Coronavirus HKU1 Not Detected Not Detected LAB MICROBIOLOGY METHOD 09/22/2024 11:[address] [facility] Coronavirus OC43 Not Detected Not Detected LAB MICROBIOLOGY METHOD 09/22/2024 11:27 PM [facility] Coronavirus NL63 Not Detected Not Detected LAB MICROBIOLOGY METHOD 09/22/2024 11:[address] [facility] Parainfluenza Virus 1 Not Detected Not Detected LAB MICROBIOLOGY METHOD 09/22/2024 11:27 PM [facility] Parainfluenza Virus 2 Not Detected Not Detected LAB MICROBIOLOGY METHOD 09/22/2024 11:27 PM [facility] Parainfluenza Virus 3 Not Detected Not Detected LAB MICROBIOLOGY METHOD 09/22/2024 11:27 PM [facility] Parainfluenza Virus 4 Not Detected Not Detected LAB MICROBIOLOGY METHOD 09/22/2024 11:27 PM [facility] RSV PCR Not Detected Not Detected LAB MICROBIOLOGY METHOD 09/22/2024 11:27 PM [facility] Human Metapneumovirus A and B Not Detected Not Detected LAB MICROBIOLOGY METHOD 09/22/2024 11:[address] [facility] Rhinovirus/Entero virus Not Detected Not Detected LAB MICROBIOLOGY METHOD 09/22/2024 11:[address] [facility] Bordetella pertussis Not Detected Not Detected LAB MICROBIOLOGY METHOD 09/22/2024 11:[address] [facility] Bordetella parapertussis Not Detected Not Detected LAB MICROBIOLOGY METHOD 09/22/2024 11:[address] [facility] Mycoplasma pneumo by PCR Not Detected Not Detected LAB MICROBIOLOGY METHOD 09/22/2024 11:[address] [facility] Chlamydia pneumoniae Not Detected Not Detected LAB MICROBIOLOGY METHOD 09/22/2024 11:27 PM [facility] SARS COV-2 Not Detected Not Detected LAB MICROBIOLOGY METHOD 09/22/2024 11:27 PM [facility] Swab Both anterior nares / Unknown Non-blood Collection / Unknown 09/22/2024 10:13 PM EST 09/22/2024 10:31 PM EST [facility] - 09/22/2024 11:27 PM EST Testing was performed using the [employer] Respiratory Pathogen PCR Assay. All results must be correlated with the clinical findings. Results should not be used as the sole basis for diagnosis. False Negative results may occur from the presence of sequence variants in the region targeted by the assay or the presence of inhibitors. Results may be affected by concurrent antiviral/antimicrobial therapy or levels of organisms that are below the limit of detection. us True [facility] LAB MICROBIOLOGY - GENERAL ORDER AMEE Final Result [facility] [address] [place] [address], * MRSA molecular study (09/22/2024 10:13 PM EST) [facility] MRSA Screen PCR Not Detected Not Detected LAB MICROBIOLOGY METHOD 09/22/2024 11:[address] [facility] Swab Both anterior nares / Unknown Non-blood Collection / Unknown 09/22/2024 10:13 PM EST 09/22/2024 10:31 PM EST True [facility] LAB MICROBIOLOGY - GENERAL ORDER AMEE Final Result Performing Organization Address City/[facility]/ZIP Co de Phone Number [facility] [address] [place] [address], [place] [phone] * Transfuse platelets (09/22/2024 6:34 PM EST) Joann HAYWARD BLOOD TRANSFUSION ORDERABLES Final Result * (ABNORMAL) Prothrombin time with INR (09/22/2024 6:31 PM EST) Only the most recent of2 resultswithin the time period is included. Protime 14.1(H) 10.6 - 13.9 sec LAB COAGULATION METHOD 09/22/2024 7:[address] [facility] INR 1.1 LAB COAGULATION METHOD 09/22/2024 7:33 PM [facility] Blood Venous blood specimen / Unknown Venipuncture / Unknown 09/22/2024 6:31 PM EST 09/22/2024 6:44 PM EST Boo Matthews DO LAB BLOOD ORDERABLES Final R esult Performing Organization Address City/[facility]/ZIP Co de Phone Number [facility] [address] [place] [address], [place] [phone] * (ABNORMAL) Fibrinogen (09/22/2024 6:31 PM EST) Fibrinogen 199(L) 200 - 393 mg/dL LAB COAGULATION METHOD 09/22/2024 7:[address] [facility] Blood Venous blood specimen / Unknown Venipuncture / Unknown 09/22/2024 6:31 PM EST 09/22/2024 6:44 PM EST Boo Matthews DO LAB BLOOD ORDERABLES Final R esult [facility] [address] [place] [address], [place] [phone] * Hepatic function panel (09/22/2024 6:31 PM EST) Total Protein 6.3 6.0 - 8.0 g/dL LAB CHEMISTRY METHOD 09/22/2024 7:[address] [facility] Albumin 3.4 3.2 - 5.0 g/dL LAB CHEMISTRY METHOD 09/22/2024 7:15 PM [facility] Total Bilirubin 0.9 0.0 - 1.4 mg/dL LAB CHEMISTRY METHOD 09/22/2024 7:15 PM [facility] Bilirubin, Direct 0.3 0.0 - 0.3 mg/dL LAB CHEMISTRY METHOD 09/22/2024 7:[address] [facility] Bilirubin, Indirect 0.6 0.0 - 1.1 mg/dL LAB CHEMISTRY METHOD 09/22/2024 7:15 PM [facility] ALT (SGPT) 16 10 - 60 unit/L LAB CHEMISTRY METHOD 09/22/2024 7:15 PM [facility] AST (SGOT) 14 10 - 42 unit/L LAB CHEMISTRY METHOD 09/22/2024 7:15 PM [facility] Alkaline Phosphatase 49 42 - 121 unit/L LAB CHEMISTRY METHOD 09/22/2024 7:15 PM [facility] Blood Venous blood specimen / Unknown Venipuncture / Unknown 09/22/2024 6:31 PM EST 09/22/2024 6:44 PM EST Boo Matthews DO LAB BLOOD ORDERABLES Final R esult [facility] [address] [place] [address], [place] [phone] * Prepare platelets: 1 Product (09/22/2024 4:55 PM EST) Product Code [id number] 09/22/2024 5:[address] [facility] Unit Number [id number] 09/22/19 5:[address] [facility] Dispense Status Transfused 09/22/2024 5:[address] [facility] Unit ABO Rh OPOS 09/22/2024 5:[address] [facility] Unit Expiration Date Time [id number] 09/22/2024 5:[address] [facility] Unit Blood Type 5100 09/22/2024 5:[address] [facility] Blood Venous blood specimen / Unknown 09/22/2024 4:55 PM EST Joann [facility] BLOOD BANK PRODUCT ORDERABLES Final Result [facility] [address] [place] [address], [place] [phone] * (ABNORMAL) POCT activated clotting time,kaolin (09/22/2024 2:26 PM EST) Only the most recent of4 resultswithin the time period is included. Activated Clotting Time Kaolin 158(H) 74 - 137 sec 09/23/2024 5:[address] [facility] Blood Venous blood specimen / Unknown 09/22/2024 2:26 PM EST 09/23/2024 5:24 AM EST Boo Matthews DO LAB POINT OF CARE TE ST DOCKED DEVICE UNSOLICITED RESULTS Final Result [facility] [address] [place] [address], * Tissue exam (09/22/2024 1:22 PM EST) Final Diagnosis Right Superficial Femoral Artery (SFA)-endarterect morris: -FIBROCALCIFIC ATHEROSCLEROSIS 09/24/2024 12:[address] [facility] Gross Description A. Leg, Right, Right Superficial Femoral Artery (SFA) Plaque: Labeled right sup leg R . Received in formalin is a 0.4 cm aggregate of irregular calcified yellow-downey tissue fragments which is wrapped in paper and submitted in toto in one cassette following decalcification, multiple pieces. THERESA 09/24/2024 12:[address] [facility] Disclaimer Unless otherwise specified, all tissue is 10% NB formalin fixed and paraffin embedded. 09/24/2024 12:[address] [facility] Tissue Structure of right lower limb / Unknown 09/22/2024 1:22 PM EST 09/22/2024 3:57 PM EST Harry Taveras MD LAB PATHOLOGY ORDERABLES Final Result [facility] [address] [place] [address], * Peripheral IV (09/22/2024 11:41 AM EST) Narrative Marco Manzano CRNA - 09/22/2024 11:41 AM EST Marco Manzano CRNA ? 09/22/2024 11:41 AM Peripheral IV Inserted by: Marco Manzano CRNA Placement Needle size: 16 G Laterality: right Location: wrist Site prep: alcohol Technique: anatomical landmarks Attempts: 1 Toney Monroy MD ANESTHESIA ORDERABLES Final R esult * TH AN ENDOTRACHEAL(NO CHARGE) (09/22/2024 11:40 AM EST) Narrative Marco Manzano CRNA - 09/22/2024 11:40 AM EST Marco Manzano CRNA ? 09/22/2024 11:41 AM General Information and Staff Patient location during procedure: OR Resident/HYDRAMATIC SPECIALIST: Marco Manzano CRNA Performed: resident/HYDRAMATIC SPECIALIST/CAA Performed by: Marco Manzano CRNA Authorized by: Toney Monroy MD ?? Intubation Urgency: elective Final Airway Details Successful airway: ETT Cuffed: yes Successful intubation technique: direct laryngoscopy Facilitating devices/methods: intubating stylet Endotracheal tube insertion site: oral Blade: Chago Blade size: #3 ETT size (mm): 7.5 Cormack-Lehane Classification: grade IIb - view of arytenoids or posterior of glottis only Placement verified by: chest auscultation and capnometry Cuff volume (mL): 8 Measured from: lips ETT to lips (cm): 21 Number of attempts at approach: 1Final airway type: endotracheal airway Indications and Patient Condition Indications for airway management: anesthesia Spontaneous Ventilation: absent Sedation level: Yes Preoxygenated: yes Soft Tissue Damage: No Dentition Unchanged: Yes Patient position: sniffing MILS maintained throughout Mask difficulty assessment: 1 - vent by mask us Toney Monroy MD ANESTHESIA ORDERABLES Final R esult * Activated partial thromboplastin time (09/17/2024 11:06 AM EST) aPTT 31.7 24.1 - 39.3 sec LAB COAGULATION METHOD 09/17/2024 12:[address] [facility] Blood Venous blood specimen / Unknown Venipuncture / Unknown 09/17/2024 11:06 AM EST 09/17/2024 11:53 AM EST us Harry Taveras MD LAB BLOOD ORDERABLES Final Resu lt [facility] [address] [place] [address], [place] [phone] * Type and screen (09/17/2024 11:06 AM EST) ABO Group A 09/17/2024 1:[address] [facility] Rh Type Positive 09/17/2024 1:[address] [facility] Antibody Screen Negative 09/17/2024 1:[address] [facility] Blood Venous blood specimen / Unknown Venipuncture / Unknown 09/17/2024 11:06 AM EST 09/17/2024 11:53 AM EST us Harry Taveras MD LAB BLOOD BANK TEST ORDERABLES Final Result [facility] [address] [place] [address], [place] [phone] * ECG 12 lead - Procedural (No Charge) (09/17/2024 10:55 AM EST) Ventricular Rate ECG 75 BPM GEMUSE Atrial Rate 75 BPM GEMUSE P-R Interval 140 ms GEMUSE QRS Duration 110 ms GEMUSE Q-T Interval 366 ms GEMUSE QTc 408 ms GEMUSE P Wave [place] 48 degrees GEMUSE R [place] -37 degrees GEMUSE T [place] 106 degrees GEMUSE ECG Interpretation Normal sinus rhythm Left axis deviation Minimal voltage criteria for LVH, may be normal variant ( Keshav product ) Poor R wave progression T wave abnormality, consider lateral ischemia Abnormal ECG When compared with ECG of 23-AUG-2016 05:21, No significant change was found Confirmed by Joe CERNA JAMES ([id number]) on 09/18/2024 3:14:34 PM GEMUSE 09/17/2024 10:5 5 AM EST 09/18/2024 3:14 PM EST us Harry Taveras MD ECG ORDERABLES Final Result GEM[facility] * Vascular US duplex lower extremity vein map bilateral (08/23/2024 1:47 PM EST) Anatomical Region Laterality Modality Vascular, Abdomen Ultrasound 08/23/2024 1:57 PM EST Impressions 08/23/2024 2:02 PM EST No deep venous thrombosis of either lower extremity. Greater saphenous vein measurements as detailed above. -------- FINAL REPORT -------- Dictated By: Suhas Martino Dictated Date: 08/23/2024 13:57 ET Assigned Physician: Suhas Martino Reviewed and Electronically Signed By: Suhas Martino Signed Date: 08/23/2024 14:02 ET Workstation ID: [id number] Transcribed By: Self Edit Transcribed Date: 08/23/2024 13:57 ET Narrative 08/23/2024 2:02 PM EST Bilateral lower extremity vein mapping study, 08/23/2024. HISTORY: Pre-Op vascular mapping, preop lower extremity bypass. COMPARISON: None. TECHNIQUE: Grayscale, color Doppler, and spectral Doppler ultrasound evaluation of the deep venous structures of the lower extremities. ??Augmentation and compression maneuvers were performed. ??Additional grayscale imaging performed with measurement of the greater saphenous veins throughout both legs. FINDINGS: The deep venous structures of the lower extremities demonstrate normal compressibility with normal color and spectral Doppler flow and a normal response to augmentation maneuvers. Saphenous vein measurements: The right greater saphenous vein measures 1 cm at the level of the groin, 6 mm in the upper thigh, 4 mm in the mid thigh, 5 mm in the lower thigh and above the knee, 3 mm below the knee, 5 mm in the mid calf, and 4 mm at the ankle. The left greater saphenous vein measures 6 mm at the level of the groin. ??The patient states that the left greater saphenous vein has been removed, and the other portions of this vein are not utilized. Procedure Note Suhas Martino MD - 08/23/2024 Bilateral lower extremity vein mapping study, 08/23/2024. HISTORY: Pre-Op vascular mapping, preop lower extremity bypass. COMPARISON: None. TECHNIQUE: Grayscale, color Doppler, and spectral Doppler ultrasoundevaluation of the deep venous structures of the lower extremities.Augmentation and compression maneuvers were performed. Additionalgrayscale imaging performed with measurement of the greater saphenousveins throughout both legs. FINDINGS: The deep venous structures of the lower extremities demonstrate normalcompressibility with normal color and spectral Doppler flow and a normalresponse to augmentation maneuvers. Saphenous vein measurements: The right greater saphenous vein measures 1cm at the level of the groin, 6 mm in the upper thigh, 4 mm in the midthigh, 5 mm in the lower thigh and above the knee, 3 mm below the knee, 5mm in the mid calf, and 4 mm at the ankle. The left greater saphenous vein measures 6 mm at the level of the groin.The patient states that the left greater saphenous vein has been removed,and the other portions of this vein are not utilized. IMPRESSION: No deep venous thrombosis of either lower extremity. Greater saphenous vein measurements as detailed above. -------- FINAL REPORT -------- Dictated By: Suhas Martino Dictated Date: 08/23/2024 13:57 ET Assigned Physician: Suhas Martino Reviewed and Electronically Signed By: Suhas Martino Signed Date: 08/23/2024 14:02 ET Workstation ID: [id number] Transcribed By: Self Edit Transcribed Date: 08/23/2024 13:57 ET Joann HAYWARD CV VASCULAR PROCEDURES Final Result * CT Angio Abdominal Aorta w Runoff (08/20/2024 2:09 PM EST) Anatomical Region Laterality Modality Body Computed Tomogra phy 08/20/2024 2:23 PM EST Impressions 08/20/2024 2:42 PM EST 1. ??Atherosclerotic disease and regions of vascular occlusion are noted and detailed above. 2. ??Fatty infiltration the liver. -------- FINAL REPORT -------- Dictated By: Jesse Celestin Dictated Date: 08/20/2024 14:23 ET Assigned Physician: Jesse Celestin Reviewed and Electronically Signed By: Jesse Celestin Signed Date: 08/20/2024 14:42 ET Workstation ID: [id number] Transcribed By: Self Edit Transcribed Date: 08/20/2024 14:23 ET Narrative 08/20/2024 2:[address] angiogram of the abdominal aorta with runoff with IV contrast TECHNIQUE: Axial and reformatted images were performed of the abdomen and pelvis extending through the legs following administration of IV contrast.120cc of ISOVUE was administered IV for contrast enhanced images. ??Examination was performed during arterial phase of imaging. DOSE: CTDIvol: 11.3/14.1mGy. ??Total exam DLP: 1900.9mGy-cm COMPARISON: CT aorta and runoff February 17. INDICATION: Follow-up for peripheral arterial disease. FINDINGS: Vessels: Minimal plaque in the aorta without aneurysm. The celiac, SMA, and RADAMES appear normal. ??Renal arteries are widely patent bilaterally. ??An accessory left-sided renal artery is noted. Minimal plaque in the iliac arteries bilaterally without significant stenosis. ??The external iliac arteries show minimal plaque without significant stenosis. Right leg: Common femoral artery is patent. ??The profundus artery is widely patent. ?? Mild plaque is noted throughout the SFA without significant stenosis. ??Again noted is a stent in the distal SFA that appears occluded. ??The popliteal artery is not well evaluated secondary to streak artifact. ?? Reconstituted flow is noted in the distal popliteal artery. ??Plaque with severe stenosis is noted in the posterior tibial trunk just distal to the origin of the anterior tibial artery. ??Evaluation of the arteries in the lower leg is limited secondary to multiple calcifications. ??There are likely multiple regions of significant stenosis throughout. ??Peroneal artery is visualized to the distal calf. ??Posterior tibial artery appears to be occluded near the level the ankle. ??The anterior tibial artery appears to extend beyond the ankle. Left leg: Common femoral artery and profundus are patent. Plaque is noted throughout the SFA with multiple regions of mild stenosis. ??Dense plaque is noted in the distal SFA that causes at least mild stenosis. Popliteal artery stent is noted. ??The stent appears occluded near its origin. ??There is reconstituted flow in the distal popliteal artery. Plaque causes severe stenosis in the posterior tibial trunk just distal to the origin of the anterior tibial artery. ??Evaluation of the vessels in the lower leg is limited secondary to numerous calcifications. ??There are likely multiple regions of stenosis. ??No significant flow is identified in the posterior tibial artery in the distal calf. ??Peroneal artery appears to extend to the distal calf. ??Anterior tibial artery appears to extend beyond the ankle. CT abdomen and pelvis: Study was performed during arterial phase imaging which limits evaluation of some organs. Liver: Fatty infiltration of the liver. Biliary: Gallbladder appears normal. No biliary dilatation. Pancreas: Pancreas appears within normal limits. ??No atrophy or ductal dilatation. Spleen: Spleen appears normal. ?? Adrenals: The adrenal glands appear symmetric and normal bilaterally. Kidneys: The kidneys appear normal. ??No evidence of hydronephrosis. Retroperitoneum: No abnormal lymphadenopathy. ?? Bowel: Bowel appears within normal limits. ??Normal appendix. Mesentery: Mesentery appears normal. ??No ascites. Pelvis: Pelvis appears within normal limits. ??No abnormal lymphadenopathy. Abdominal wall/bones: No significant hernia. ??Bones appear within normal limits. ?? Lung Bases: Clear bilaterally. Procedure Note Jesse Celestin MD - 08/20/2024 CT angiogram of the abdominal aorta with runoff with IV contrast TECHNIQUE: Axial and reformatted images were performed of the abdomen andpelvis extending through the legs following administration of IVcontrast.120cc of ISOVUE was administered IV for contrast enhanced images.Examination was performed during arterial phase of imaging. DOSE: CTDIvol: 11.3/14.1mGy. Total exam DLP: 1900.9mGy-cm COMPARISON: CT aorta and runoff February 17. INDICATION: Follow-up for peripheral arterial disease. FINDINGS: Vessels: Minimal plaque in the aorta without aneurysm. The celiac, SMA, and RADAMES appear normal. Renal arteries are widely patentbilaterally. An accessory left-sided renal artery is noted. Minimal plaque in the iliac arteries bilaterally without significantstenosis. The external iliac arteries show minimal plaque withoutsignificant stenosis. Right leg: Common femoral artery is patent. The profundus artery is widely patent. Mild plaque is noted throughout the SFA without significant stenosis.Again noted is a stent in the distal SFA that appears occluded. Thepopliteal artery is not well evaluated secondary to streak artifact. Reconstituted flow is noted in the distal popliteal artery. Plaque withsevere stenosis is noted in the posterior tibial trunk just distal to theorigin of the anterior tibial artery. Evaluation of the arteries in thelower leg is limited secondary to multiple calcifications. There arelikely multiple regions of significant stenosis throughout. Peronealartery is visualized to the distal calf. Posterior tibial artery appearsto be occluded near the level the ankle. The anterior tibial arteryappears to extend beyond the ankle. Left leg: Common femoral artery and profundus are patent. Plaque is noted throughout the SFA with multiple regions of mild stenosis.Dense plaque is noted in the distal SFA that causes at least mildstenosis. Popliteal artery stent is noted. The stent appears occluded near itsorigin. There is reconstituted flow in the distal popliteal artery. Plaque causes severe stenosis in the posterior tibial trunk just distal tothe origin of the anterior tibial artery. Evaluation of the vessels inthe lower leg is limited secondary to numerous calcifications. There arelikely multiple regions of stenosis. No significant flow is identified inthe posterior tibial artery in the distal calf. Peroneal artery appearsto extend to the distal calf. Anterior tibial artery appears to extendbeyond the ankle. CT abdomen and pelvis: Study was performed during arterial phase imaging which limits evaluationof some organs. Liver: Fatty infiltration of the liver. Biliary: Gallbladder appears normal. No biliary dilatation. Pancreas: Pancreas appears within normal limits. No atrophy or ductaldilatation. Spleen: Spleen appears normal. Adrenals: The adrenal glands appear symmetric and normal bilaterally. Kidneys: The kidneys appear normal. No evidence of hydronephrosis. Retroperitoneum: No abnormal lymphadenopathy. Bowel: Bowel appears within normal limits. Normal appendix. Mesentery: Mesentery appears normal. No ascites. Pelvis: Pelvis appears within normal limits. No abnormallymphadenopathy. Abdominal wall/bones: No significant hernia. Bones appear within normallimits. Lung Bases: Clear bilaterally. IMPRESSION: 1. Atherosclerotic disease and regions of vascular occlusion are notedand detailed above. 2. Fatty infiltration the liver. -------- FINAL REPORT -------- Dictated By: Jesse Celestin Dictated Date: 08/20/2024 14:23 ET Assigned Physician: Jesse Celestin Reviewed and Electronically Signed By: Jesse Celestin Signed Date: 08/20/2024 14:42 ET Workstation ID: [id number] Transcribed By: Self Edit Transcribed Date: 08/20/2024 14:23 ET Result [facility] Joann HAYWARD IMG CT PROCEDURES Final Resul t * Hemoglobin A1c (10/06/2020) Pathologist [facility] Hemoglobin A1C 6.5 <=6.5 % Blood Venous blood specimen / Unknown Result [facility] Historical Provider LAB BLOOD ORDERABLES Jackie l Result * HM Urine Albumin Creatinine Ratio (04/17/2020) Pathologist [facility] Urine Albumin Creatinine Ratio Abstracted Result [facility] Provider HEALTH MAINTENANCE Final Result * (ABNORMAL) Lipid panel (04/03/2020) [facility] LDL/HDL Ratio 5(A) 0 - 4 Triglycerides 454(A) 0 - 150 mg/dL Cholesterol 150 0 - 200 mg/dL HDL 33(A) >=40 mg/dL LDL Cholesterol 27 0 - 100 mg/dL Blood Venous blood specimen / Unknown Result [facility] Provider LAB BLOOD ORDERABLES Jackie l Result from Last 3 Months or Most Recently Relevant to Health Maintenance Insurance [facility] Advance Directives * Full Code - Default (Latest Code Status on File) Date Activated Date Inactivated Comments 09/22/2024 3:16 PM 09/26/2024 4:14 PM This is order is used when code status has not been discussed with the patient, or code status is otherwise unknown/unconfirmed To update the patient's code status, place a code status order. Do not modify or discontinue any currently active code status orders. * Full Code - Default Date Activated Date Inactivated Comments 09/22/2024 9:47 AM 09/22/2024 3:16 PM This is order is used when code status has not been discussed with the patient, or code status is otherwise unknown/unconfirmed To update the patient's code status, place a code status order. Do not modify or discontinue any currently active code status orders. Care Teams [employer] Dealer Relationship Specialty Start Date End Date Mary Eubanks MD [address] [facility] , [address] [facility] Physician Associ D/B/A: [facility] YVONNE Solano PCP - General Internal Medicine 07/13/21
--- OUTSIDE RECORDS SUMMARY | 2024-10-26 07:15 | XMS_ITS | Encounter Summary ---
Author Organization [facility] Address [address] [place] [address] Care Team Providers Care Glass Vial Bending Conveyor Feeder Name Role Phone Mary Eubanks MD Primary Care Provider [phone] Reason for Referral * Imaging (Routine) - Closed Specialty Diagnoses / Procedures Referred By Chica austin Referred To Contact Diagnoses PAD (peripheral artery disease) (CMS/HCC) Aneurysm of left popliteal artery (CMS/HCC) Procedures Vascular US duplex lower extremity arteries right with Doppler Harry Taveras MD [address] [place] [address] [place] [address] Phone: tel: fax: [facility] Referral ID Status Reason Start Date Expiration Date Visits Re quested Visits Authorized [id number] Closed 10/06/2024 10/06/2025 1 1 Reason for Visit * Reason Comments Post-op Encounter Details Date Type Department Care Team (Late st Contact Info) Description 10/06/2024 1:30 PM EST Office Visit Vascular Surgery - [place] [address] [place] [phone] Arleen Powers MD [address] [place] [address] [place] [address] PAD (peripheral artery disease) (CMS/HCC) (Primary Dx); Aneurysm of left popliteal artery (CMS/HCC) Social History Tobacco Use Types Packs/Day Years [...] for your loved ones. For example, child abuse worker or elderly care for an older [...] Sign Reading Time Taken Comments Blood Pressure 120/70 10/06/2024 1:41 PM EST Pulse 72 10/06/2024 1:41 PM EST Temperature - - Respiratory Rate 20 10/06/2024 1:41 PM EST Oxygen Saturation - - Inhaled Oxygen Concentration - - Weight - - Height - - Body Mass Index - - documented in this encounter Progress Notes * Arleen Powers MD - 10/06/2024 1:30 PM EST Clean right thigh incision with betadine SOLUTION.daily cover with dry gauze dressing , recheck in 1 week. US RIGHT LEG BEFORE NEXT VISIT. * Arleen Powers MD - 10/06/2024 1:30 PM EST 10/06/2024 HPI: Ricardo Farr presents for surgical follow up s/p right femoral-popliteal bypass graft with reversed saphenous vein done on 09/22/2024, at [facility]. He has had no fever no chills. He is draining from the lower part of his medial thigh incision. The thigh is swollen. He has been using Telfa onthe incision site. Patient is anxious lives alone. PE: There were no vitals filed for this visit. APPEARANCE: Alert and in no acute distress EYES: Conjunctiva and sclera normal. LUNG: Nonlabored respirations ABDOMEN: Soft, non-tender, non-distended NEURO: Awake, alert and oriented VASCULAR: -Right upper extremity: radial artery pulses palpable. -Left upper extremity: radial artery pulses palpable. -Right lower extremity: femoral artery pulse palpable DP pulse palpable. PT audible with Doppler toes are warm well-perfused, resolving ecchymosis medial thigh. Lower thigh incision small area of skin maceration, with serous drainage. There is fluctuance along the posterior aspect of that incision site. No wound dehiscence. -Left lower extremity: femoral artery pulse palpable. No palpable popliteal artery pulse. Dorsalis pedis posterior tibial not palpable but audible with Doppler. No leg edema. SKIN: The incisions are healing and there are no signs of infection, significant erythema,. Active drainage, serous drainage, bilateral medial thigh incision A/P:pad ,seroma right thigh, status post right femoral-popliteal bypass graft, with reversed saphenous vein graft. The incision site was cleaned with Betadine, cover with dry dressing and ABD pad Acebandage. Clean incision site with Betadine and cover with dry dressing daily. Patient to have arterial ultrasound right lower leg tomorrow. Recheck in 1 week. He has an appointment for the 10/12/23. Recheck sooner if he develops fever and chills. Graft is patent. The patient is doing well following surgery with healing of surgical site. He is advised regarding care of the incision site and is instructed to call if any wound drainage, fever, or other concerns arise. The patient will follow up as directed and he is to call if there are any problems prior to scheduled visit. documented in this encounter Plan of Treatment Upcoming Encounters Date Type Department Care Team (Late st Contact Info) Description 10/26/2024 10:00 AM EST Appointment [facility] Ultrasound [address] [place] [phone] 11/01/2024 10:15 AM EST Office Visit Vascular Surgery - [place] [address] [facility] [address] [place] [phone] Joann Morales PA [address] [facility] [address] [place] [address] 03/28/2025 8:00 AM EDT Office Visit Pulmonolgy [facility] 175 [facility] [address] [place] [phone] Laura Foster MD [address] [place] [address] [address] [place] [address] documented as of this encounter Results * Vascular US duplex [...] Signed Date: 10/12/2024 09:41 ET Workstation ID: [id number] Transcribed By: Self Edit Transcribed Date: 10/12/2024 09:31 ET Narrative 10/12/2024 9:41 AM EST INDICATION: Peripheral arterial disease status post bypass TECHNIQUE: Arterial duplex imaging obtained of the right ??lower extremity. Prior relevant imaging studies: CTA of the aorta and lower extremities from August 20, 2024 Right leg: Common femoral artery: 53 cm/s with triphasic waveform Superficial femoral artery: Occlusion of the [place] vessel distally. Patent proximal SFA bypass graft [...] waveform Superficial femoral artery: Occlusion of the [place] vessel distally.Patent proximal SFA bypass graft with [...] Signed Date: 10/12/2024 09:41 ET Workstation ID: [id number] Transcribed By: Self Edit Transcribed Date: 10/12/2024 09:31 ET us Harry Taveras MD CV VASCULAR PROCEDURES Final Re sult documented in this encounter Visit Diagnoses Diagnosis PAD (peripheral artery disease) (CMS/HCC)- Primary Unspecified peripheral vascular disease Aneurysm of left popliteal artery (CMS/HCC) PAD (peripheral artery disease) (CMS/HCC) Unspecified peripheral vascular disease Aneurysm of left popliteal artery (CMS/HCC) documented in this encounter Care Teams Glass Vial Bending Conveyor Feeder Relationship Specialty Start Date End Date Mary Eubanks MD [address] [place] [address] , [address] Physician Associ D/B/A: [facility] YVONNE Solano PCP - General Internal Medicine 07/13/21 documented as of this encounter
--- OUTSIDE RECORDS SUMMARY | 2024-10-26 07:15 | XMS_ITS | Encounter Summary ---
Author Organization [facility] Address [address] [place] [address] Care Team Providers Care Lance Crewmember Name Role Phone Mary Eubanks MD Primary Care Provider [phone] Encounter Details Date Type Department Care Team (Late st Contact Info) Description 10/03/2024 Nurse Triage Vascular Surgery - [place] [address] [place] [address] Harry Taveras MD [address] [place] [address] [place] [address] Social History Tobacco Use Types Packs/Day Years [...] your loved ones. For example, early childhood educator aide or elderly care for an older adult? [...] Progress Notes * Suhas Dent MA - 10/04/2024 11:14 AM EST Spoke with patient he has not started cilostazal. * YESY Figueroa - 10/04/2024 9:04 AM EST I reviewed his discharge and he was discharged with home PT, the [facility] should be able to arrange nursing. Can you please check on that? I can place any necessary orders. If he restarted cilostazol, please ask him to stop the medication. He did have a lot of bleeding postop from platelet dysfunction * Suhas Dent MA - 10/04/2024 8:54 AM EST Spoke with patient, still has one spot that continues to bleed every time he changes bandage. No signs of hematoma and the bleeding stops after a minute of pressure. No increased pain, no otheracute symptoms. Picture looks good. Told patient that he may be removing a scab when he removes the bandage to change it. Told him to put a bead of Antibiotic ointment at the area with the bleed and put the bandage over that hoping this will prevent adhesion to the bandage. Patient agrees with plan. Patient states called multiple times this weekend and didn't get anyone to discuss wound care they all told him to go to the ER due to the fact they didn't know the hx. Patient felt this was poor advise he just wanted to make sure his bleeding was ok. Sobeida David documented in this encounter Plan of Treatment Upcoming Encounters Date Type Department Care Team (Late st Contact Info) Description 10/26/2024 10:00 AM EST Appointment [facility] Ultrasound [address] [place] [address] 11/01/2024 10:15 AM EST Office Visit Vascular Surgery - [place] [address] [facility] [address] [place] [phone] Joann Morales PA [address] [facility] [address] [place] [address] 03/28/2025 8:00 AM EDT Office Visit Pulmonolgy - [place] [address] [phone] Laura Foster MD [address] [phone] documented as of this encounter Visit Diagnoses Not on filedocumented in this encounter Care Teams Lance Crewmember Relationship Specialty Start Date End Date Mary Eubanks MD [address] [place] [address] , [address] [facility] Physician Associ D/B/A: [facility] [place] PCP - General Internal Medicine 07/13/21 documented as of this encounter
[2024-10-26 07:43] VITALS: BP 120/62; BMI 31.0
--- NOTE | 2024-10-26 07:43 | MHC.PC.OV ---
Vital Signs 10/26/24 07:43 Height 5 ft 8 in Weight 204 lb BMI 31.0 BP 120/62 Blood Pressure Location Lt brachial Position Sitting Intake Visit Reasons: Annual Exam Intake Note: Patient here for an Annual Physical Exam Career Coach Required: No Accompanied by: Self / Same As Patient Allergies No Known Allergies Allergy (Verified 10/26/24 07:57) Medication List - Last Reconciled 10/26/24 by Mary Eubanks MD aspirin (Adult Low Dose Aspirin) 81 mg PO DAILY 90 days blood sugar diagnostic (EdgeSpringTouch Ultra Test strips) Use 1 test strip three times a day carvedilol 6.25 mg PO BID 90 days clopidogrel 75 mg PO DAILY 90 days empagliflozin (Jardiance) 10 mg PO DAILY 90 days gabapentin 100 mg PO DAILY PRN 90 days glipizide 5 mg PO DAILY 90 days insulin glargine (Lantus Solostar U-100 Insulin) 60 units (0.6 mL) subcut DAILY 90 days lancets Use 1 lancet three times a day losartan 100 mg PO DAILY 90 days metformin 1,000 mg PO BID 90 days omeprazole 20 mg PO DAILY 90 days pen needle, diabetic Use 1 pen needle once a day pregabalin 50 mg PO BEDTIME 90 days rosuvastatin 20 mg PO BEDTIME 90 days trazodone 50 mg PO BEDTIME PRN 90 days Tobacco use date assessed: 10/26/24 Dental Screening Dental Screen Date: 10/26/24 Did you have a dental visit in the last 12 months?: Yes Did you have a dental problem in the last 6 months where you did not have access to dental care?: No Was dental information given to patient?: Patient has dentist HPI HPI Comments History of Present Illness Details The patient is a 54-year-old male presenting for a routine physical examination and the administration of vaccines. His Hemoglobin A1c is 5.3%, indicating that his Diabetes Mellitus is currently well-controlled. He last received a Tetanus, Diphtheria, and Pertussis (Tdap) vaccine in 2010 and a Pneumonia vaccine the same year. As he is under 65 years, he is due for another dose of the pneumonia vaccine. The diabetes-related eye examination was completed this year, and he underwent a colonoscopy in 2021, which revealed only a hyperplastic polyp, indicating no major concerns. A mental health evaluation using the PHQ-9 score returned a value of 5. Currently, the patient is using trazodone to manage his sleep disorder. You also has peripheral arterial disease follow by vascular surgery and systolic congestive heart failure follow by cardiology. Denies any leg swelling. Claudication has improved by a recent bypass surgery in right leg. - Tdap vaccination needed. - Pneumonia vaccination required due to the patient's age being less than 65. - Diabetes eye examination completed this year. - Colonoscopy done in 2021, only revealed hyperplastic polyp. - Previous Hemoglobin A1c was 5.3%. - LDL levels were within target range. - Fasting labs to be repeated in five months. [facility] Medical History (Updated 10/26/24 @ 08:22 by Mary Eubanks MD) Internal hemorrhoid TOBY on CPAP Neuropathy retirement (current) use of insulin CAD (coronary artery disease) Peripheral arterial disease Dyslipidemia GERD (gastroesophageal reflux disease) Essential hypertension Diabetes mellitus Surgical History (Updated 10/26/24 @ 08:08 by Mary Eubanks MD) Hx of colonoscopy H/O vascular surgery Status post right knee replacement S/P CABG x 3 Family History Father No problems noted. Mother No problems noted. Social History Housing: Apartment Alcohol intake: current Alcohol intake frequency: holidays/special occasions only Alcohol type: beer Patient Tobacco Use Status: Never used Tobacco e-Cigarette/Vaping Use: Never Used Second Hand Smoke Exposure: No service: Yes Current occupational status: employed Current occupational exposures/hazards: No Cognitive needs: No Hearing needs: No Vision needs: No Questionnaire PHQ-9 Over the last 2 weeks, how often have you been bothered by any of the following problems? 1. Little interest or pleasure in doing things: several days 2. Feeling down, depressed, or hopeless: several days 3. Trouble falling or staying asleep, or sleeping too much: several days 4. Feeling tired or having little energy: several days 5. Poor appetite or overeating: several days 6. Feeling bad about yourself - or that you are a failure or have let yourself or your family down: not at all 7. Trouble concentrating on things, such as reading the newspaper or watching television: not at all 8. Moving or speaking so slowly that other people could have noticed. Or the opposite - being so fidgety or restless that you have been moving around a lot more than usual: not at all 9. Thoughts that you would be better off or of hurting yourself in some way: not at all Total score: 5 Depression Screening Interpretation: Positive Depression Screening Follow-up: Existing condition, In treatment and Follow-up Visit Requested Depression Screening Done: Yes 88225 - PHQ-9 Billing: Yes Source: Developed by Drs. Sachin Muhammad, Sun Gallo, Srinivas Knott and colleagues, with an educational constantine from [employer]. Thrive Questionnaire Date Thrive assessed: 10/24/24 I am a: Patient What is your living situation today?: I have a place to live, but I am worried about losing it in the future Within the past 12 months, did the food you bought not last and you didn't have the money to get more?: Never true Within the past 12 months, did you worry whether your food would run out before you got money to buy more?: Never true Do you have trouble paying for medicines?: No Do you have trouble getting transportation to medical appointments?: No Do you have trouble paying your heating and electricity bill?: No Do you have trouble taking care of your child, family member or friend?: No Do you have trouble with day-to-day activities such as bathing, preparing meals, shopping, managing finances, etc.?: No Are you currently unemployed and looking for a job?: No Are you interested in more education?: Yes Please select the resources that you would like help with: Education Currently or been in a relationship where the following occur: No concerns reported THRIVE Score: 1 AUDIT C Alcohol Use Questionnaire (AUDIT-C) 1. How often do you have a drink containing alcohol?: Never 3. How often do you have six or more drinks on one occasion?: Never Total Score: 0 Score Reviewed/Action Taken: No CHAVA-7 AMB Questionnaire CHAVA-7 Date CHAVA - 7 assessed: 10/20/23 Feeling nervous, anxious, or on edge: 0 = Not at all Not being able to stop or control worryin = Not at all Worrying too much about different things: 1 = Several days Trouble relaxin = Several days Being so restless that it is hard to sit still: 0 = Not at all Becoming easily annoyed or irritable: 1 = Several days Feeling afraid as if something awful might happen: 0 = Not at all Total CHAVA-7 score (0-4 normal; 5-9 mild; 10-14 moderate; 15-21 severe): 3 Source: Developed by Drs. Sachin Muhammad, Sun Gallo, Srinivas Knott and colleagues, with an educational constantine from [employer]. CHAVA-7 Assessment Billing CHAVA-7 Assessment Tool: CHAVA-7 Assessment 81334 Review of Systems Const All systems reviewed & are unremarkable except as noted in HPI and below Card Denies chest pain at rest, Denies chest pain with activity, Denies edema, Denies irregular heart rhythm, Denies claudication, Denies dyspnea, Denies dyspnea on exertion, Denies orthopnea, Denies paroxysmal nocturnal dyspnea and Denies slow heart rate Resp Denies cough, Denies dyspnea and Denies dyspnea on exertion GI Denies abdominal pain, Denies change in bowel habits, Denies excessive flatus, Denies nausea and Denies vomiting Denies urinary hesitancy, Denies urinary incontinence and Denies urinary urgency Musc Denies abnormal gait, Denies atrophy, Denies deformity and Denies limited range of motion Skin/Breast Denies bleeding lesions, Denies changing lesions and Denies rash Neuro Denies abnormal gait, Denies behavioral changes, Denies confusion and Denies lack of coordination Psych Denies behavioral changes and Denies confusion Physical exam (Primary Care) Vital Signs: Last Vital Signs BP 120/62 10/26/24 07:43 BMI result Body Mass Index 31.0 BMI Assessment/Plan discussion: High BMI High, discussed plan: lifestyle, weight reduction, dietary and physical activity Tobacco/Smoking Status: Tobacco use Status Tobacco use date assessed 10/26/24 10/26/24 07:47 Patient Tobacco Use Status Never used Tobacco 10/26/24 07:47 e-Cigarette/Vaping Use Never Used 10/26/24 07:47 PHQ-9: PHQ-9 Score PHQ-9: Total score 5 10/26/24 08:26 Depression Screening Interpretation: Positive Depression Screening Follow-up: Existing condition, In treatment and Follow-up Visit Requested Thrive Assessment: Date of Thrive Assessment Date Thrive assessed 10/24/24 10/26/24 07:47 Currently or been in a relationship where the following occur: No concerns reported Const General: No confusion Orientation/consciousness: patient oriented x3 and No confusion HENMT Head: Yes normal to inspection, Yes normocephalic and Yes atraumatic Ears: external ears normal General nose exam: Normal external nose present and No nasal discharge present Eyes General: appearance normal, both eyes and all related structures Eyelids: Yes eyelids normal Conjunctivae: conjunctivae normal Neck Neck: Yes normal visual inspection and Yes supple Resp Effort & Inspection: normal respiratory effort Auscultation: clear to auscultation bilaterally Cardio Jugular venous distension: no JVD Rate: regular rate Rhythm: regular rhythm Heart sounds: S1 normal heart sound present and S2 normal heart sound present GI Inspection: Yes normal to inspection Palpation (GI): Soft to palpation and nontender Auscultation: normal bowel sounds Skin General skin exam: no rashes or lesions noted Neuro General: patient oriented x3, no focal motor deficits and No confusion Extrem General: Yes full ROM Psych Appearance: grossly normal Results AMB Hemoglobin A1c AMB Hemoglobin A1c 5.3 % Last Edit by QUINTON Winston on 10/26/24 07:59 Immunizations pneumoc 20-hamzah conj-dip cr(PF) 0.5 mL IM syringe Performing Provider: Mary Eubanks MD Performing Location: [facility] [place] [facility] Administered by: QUINTON Winston on 10/26/24 08:28 Dose Route Admin Location Dispensed Lot Number Expiration Date [facility] Document Preparation Specialist 0.5 mL IM Right Deltoid 0.5 mL [id number] 12/14/25 [id number] [employer]/KROGNI VIS Given Date VIS Provided VIS Publication Date 10/26/24 Single Vaccine 21 Eligibility Eligibility Date Funding Source Not [facility] Eligible 10/26/24 Private Boostrix Tdap 2.5 Lf unit-8 mcg-5 Lf/0.5 mL intramuscular syringe Performing Provider: Mary Eubanks MD Performing Location: [facility] [place] Adult [facility] Administered by: QUINTON Winston on 10/26/24 08:28 Dose Route Admin Location Dispensed Lot Number Expiration Date [facility] Document Preparation Specialist 0.5 mL IM Left Deltoid 0.5 mL [id number] 12/04/26 [id number] [employer] VIS Given Date VIS Provided VIS Publication Date 10/26/24 Single Vaccine 21 Eligibility Eligibility Date Funding Source Not [facility] Eligible 10/26/24 Private Results Reviewed Results Reviewed: Laboratory Last Values Hgb A1c (Clinic) 5.3 % (4.0-6.0) 10/26/24 07:56 Coding Level of Care Code Est Pt Prev Care 40-64y(73625) Diagnoses Physical exam Z00.00 Type 2 diabetes mellitus with diabetic polyneuropathy, with long-term current use of insulin E11.42; Z79.4 Diabetes mellitus type: type 2 Chronic systolic congestive heart failure I50.22 Heart failure chronicity: chronic Peripheral arterial disease I73.9 Additional Codes CHAVA-7 Assessment Billing - CHAVA-7 Assessment Tool: CHAVA-7 Assessment 50299 ([id number]) PHQ-9 - 79868 - PHQ-9 Billing: Yes ([id number]) Time Spent (min) 35 Assessment & Plan Assessment & Plan (1) Physical exam: Code(s): Z00.00 - Encounter for general adult medical examination without abnormal findings Category: Medical (2) Diabetes mellitus with diabetic polyneuropathy, with long-term current use of insulin: Code(s): E11.42 - Type 2 diabetes mellitus with diabetic polyneuropathy; Z79.4 - terminal superintendent (current) use of insulin Category: Medical Qualifiers: Diabetes mellitus type: type 2 Qualified Code(s): E11.42 - Type 2 diabetes mellitus with diabetic polyneuropathy; Z79.4 - terminal superintendent (current) use of insulin (3) Systolic congestive heart failure: Code(s): I50.20 - Unspecified systolic (congestive) heart failure Category: Medical Qualifiers: Heart failure chronicity: chronic Qualified Code(s): I50.22 - Chronic systolic (congestive) heart failure (4) Peripheral arterial disease: Code(s): I73.9 - Peripheral vascular disease, unspecified Category: Medical Plan - Administer Tdap vaccine as it is due. - Administer pneumonia vaccine due to patient's age criteria. - Monitor and continue the current management plan for Diabetes Mellitus with consideration of the current Hemoglobin A1c level. - Schedule follow-up fasting labs in five months to reassess lipid levels. - Continue trazodone for sleep management. - Regular monitoring of mental health status I discussed the importance of maintaining up-to-date vaccinations, emphasizing the need for a Tdap and pneumonia vaccine. We reviewed the patient's controlled diabetes status, with a satisfactory Hemoglobin A1c of 5.3%, and agreed on the need to continue current management and monitoring regimens. The patient is aware of the need for scheduled fasting labs to reassess lipid and glucose control. We also went over the current mental health status, ensuring that trazodone management for the sleep disorder remains appropriate, and reinforced regular check-ins on mental health with a current PHQ-9 score of 5. Patient was informed and verbally consented to the use of an ambient scribe for clinic note documentation during this visit. Orders: Orders Pneumococcal 20 Immunization Today Z23 - Encounter for immunization Microalbumin, Random (w Creat) 5 Months R80.9 - Proteinuria, unspecified NT-proBNP 5 Months I50.22 - Chronic systolic (congestive) heart failure AMB Hemoglobin A1c Today E11.42 - Type 2 diabetes mellitus with diabetic polyneuropathy, Z79.4 - terminal superintendent (current) use of insulin TDaP Immunization Today Z23 - Encounter for immunization Lipid Panel 5 Months E78.5 - Hyperlipidemia, unspecified Comprehensive [place]. Panel Fast 5 Months E11.42 - Type 2 diabetes mellitus with diabetic polyneuropathy, Z79.4 - terminal superintendent (current) use of insulin Patient Instructions: - Receive Tdap and pneumonia vaccines today. - Continue current diabetes management plan and follow diet and exercise recommendations. - Return for fasting labs in five months. - Use trazodone as prescribed for sleep, and monitor for any changes in sleep patterns. - Schedule regular mental health evaluations if symptoms persist or worsen.
== END 2024-10-26 08:24 | disposition home or self-care (01) ==
PROVIDERS: PCP Internal Medicine; Visit Provider Internal Medicine
DX: Z00.00 Encounter for general adult medical examination without abnormal findings (principal); E11.42 Type 2 diabetes mellitus with diabetic polyneuropathy; Z79.4 Long term (current) use of insulin; I50.22 Chronic systolic (congestive) heart failure; I73.9 Peripheral vascular disease, unspecified; Z23 Encounter for immunization

== ENCOUNTER → 2024-10-26 07:13 | Outpatient (BNVA) | payer BC, SELFPAY | PROVIDERS: PCP Internal Medicine; Visit Provider Internal Medicine | DX: Z00.00 Encounter for general adult medical examination without abnormal findings (principal); Z23 Encounter for immunization; E11.42 Type 2 diabetes mellitus with diabetic polyneuropathy; I50.22 Chronic systolic (congestive) heart failure; I73.9 Peripheral vascular disease, unspecified; Z79.4 Long term (current) use of insulin | CPT/HCPCS: 83036; 90471; 90472; 90677; 90715; 96127 ==

== ENCOUNTER 2025-05-27 08:07 | Outpatient (AMB) | payer BC, SELFPAY ==
--- NOTE | 2025-05-27 08:13 | MHC.PC.OV ---
Vital Signs 05/27/25 08:15 Height 5 ft 8 in Weight 206 lb 2 oz BMI 31.3 BP 130/70 Blood Pressure Location Lt brachial Position Sitting Pulse 58 Pulse Source Pulse Oximeter Temp 97.3 F Temp Source Temporal Artery Scan Pulse Oximetry (%) 99 Oxygen Delivery Method Room Air Intake Visit Reasons: dm Intake Note: Patient is here to follow up on DM. Sulfonator Operator Required: No Atmospheric Chemist: Not Required per policy Accompanied by: Self / Same As Patient Allergies No Known Allergies Allergy (Verified 05/27/25 08:25) Medication List - Last Reconciled 05/27/25 by Mary Eubanks MD aspirin (Adult Low Dose Aspirin) 81 mg PO DAILY 90 days blood sugar diagnostic ([employer] Ultra Test strips) Use 1 test strip three times a day carvedilol 6.25 mg PO BID 90 days clopidogrel 75 mg PO DAILY 90 days empagliflozin (Jardiance) 10 mg PO DAILY 90 days glipizide 5 mg PO DAILY 90 days insulin glargine (Lantus Solostar U-100 Insulin) 60 units (0.6 mL) subcut DAILY 90 days lancets Use 1 lancet three times a day losartan 100 mg PO DAILY 90 days metformin 1,000 mg PO BID 90 days omeprazole 20 mg PO DAILY 90 days pen needle, diabetic Use 1 pen needle once a day pregabalin 50 mg PO BEDTIME 90 days rosuvastatin 20 mg PO BEDTIME 90 days trazodone 50 mg PO BEDTIME PRN 90 days Tobacco use date assessed: 05/27/25 Dental Screening Dental Screen Date: 10/26/24 HPI HPI Comments History of Present Illness Details The patient is a 54-year-old male presenting with a follow-up on his chronic conditions. He has a history of diabetes mellitus, currently managed with Jardiance, Felipicida, and Labdos. His recent A1c level is 6.6%, which is within the target range of less than 7%. The patient also has hyperlipidemia, though specific management details were not discussed. He suffers from diabetic neuropathy, for which he was switched from gabapentin to fergabalin, and this change appears to be effective. The patient experiences gastroesophageal reflux disease (GERD), described as panic GERD with nocturnal symptoms. Hypertension is managed with losartan 100 mg daily, maintaining blood pressure within the goal of less than 130/80 mmHg. He has chronic systolic heart failure and is on carvedilol. His last echocardiogram was in 2022, and a follow-up echocardiogram has been ordered. [facility] Medical History Internal hemorrhoid TOBY on CPAP Neuropathy skilled nursing (current) use of insulin CAD (coronary artery disease) Peripheral arterial disease Dyslipidemia GERD (gastroesophageal reflux disease) Essential hypertension Diabetes mellitus Surgical History Hx of colonoscopy H/O vascular surgery Status post right knee replacement S/P CABG x 3 Family History Father No problems noted. Mother No problems noted. Social History Housing: Apartment Alcohol intake: current Alcohol intake frequency: holidays/special occasions only Alcohol type: beer Patient Tobacco Use Status: Never used Tobacco e-Cigarette/Vaping Use: Never Used Second Hand Smoke Exposure: No service: Yes Current occupational status: employed Current occupational exposures/hazards: No Cognitive needs: No Hearing needs: No Vision needs: No Questionnaire Thrive Questionnaire Date Thrive assessed: 10/24/24 I am a: Patient What is your living situation today?: I have a place to live, but I am worried about losing it in the future Within the past 12 months, did the food you bought not last and you didn't have the money to get more?: Never true Within the past 12 months, did you worry whether your food would run out before you got money to buy more?: Never true Do you have trouble paying for medicines?: No Do you have trouble getting transportation to medical appointments?: No Do you have trouble paying your heating and electricity bill?: No Do you have trouble taking care of your child, family member or friend?: No Do you have trouble with day-to-day activities such as bathing, preparing meals, shopping, managing finances, etc.?: No Are you currently unemployed and looking for a job?: No Are you interested in more education?: Yes Please select the resources that you would like help with: Education Currently or been in a relationship where the following occur: No concerns reported THRIVE Score: 1 AUDIT C Alcohol Use Questionnaire (AUDIT-C) 1. How often do you have a drink containing alcohol?: Never 2. How many drinks containing alcohol do you have on a typical day when you are drinking?: 1 or 2 Total Score: 0 CHAVA-7 AMB Questionnaire CHAVA-7 Date CHAVA - 7 assessed: 05/27/25 Feeling nervous, anxious, or on edge: 0 = Not at all Not being able to stop or control worryin = Not at all Worrying too much about different things: 0 = Not at all Trouble relaxin = Not at all Being so restless that it is hard to sit still: 0 = Not at all Becoming easily annoyed or irritable: 0 = Not at all Feeling afraid as if something awful might happen: 0 = Not at all Total CHAVA-7 score (0-4 normal; 5-9 mild; 10-14 moderate; 15-21 severe): 0 Source: Developed by Drs. Sachin Muhammad, Sun Gallo, Srinivas Knott and colleagues, with an educational constantine from [employer]. Review of Systems Const All systems reviewed & are unremarkable except as noted in HPI and below Card Denies chest pain at rest, Denies chest pain with activity, Denies edema, Denies irregular heart rhythm, Denies claudication, Denies dyspnea, Denies dyspnea on exertion, Denies orthopnea, Denies paroxysmal nocturnal dyspnea and Denies slow heart rate Resp Denies cough, Denies dyspnea and Denies dyspnea on exertion Physical exam (Primary Care) Vital Signs: Last Vital Signs Temp 97.3 F 05/27/25 08:15 Oxygen Delivery Method Room Air 05/27/25 08:15 BMI result Body Mass Index 31.3 Tobacco/Smoking Status: Tobacco use Status Tobacco use date assessed 10/26/24 10/26/24 07:47 Patient Tobacco Use Status Never used Tobacco 10/26/24 07:47 e-Cigarette/Vaping Use Never Used 10/26/24 07:47 Thrive Assessment: Date of Thrive Assessment Date Thrive assessed 10/24/24 10/26/24 07:47 Currently or been in a relationship where the following occur: No concerns reported Resp Effort & Inspection: normal respiratory effort Auscultation: clear to auscultation bilaterally Cardio Jugular venous distension: no JVD Rate: regular rate Rhythm: regular rhythm Heart sounds: S1 normal heart sound present and S2 normal heart sound present Extrem General: Yes full ROM Results AMB Hemoglobin A1c AMB Hemoglobin A1c 6.6 % Last Edit by QUINTON Muñiz on 05/27/25 08:27 Coding Level of Care Code Est Pt Level 4 (11667) Complex EM visit Add On G2211 Diagnoses Chronic systolic congestive heart failure I50.22 Heart failure chronicity: chronic Essential hypertension I10 Hyperlipidemia LDL goal <70 E78.5 Type 2 diabetes mellitus with diabetic polyneuropathy, with long-term current use of insulin E11.42; Z79.4 Diabetes mellitus type: type 2 Gastroesophageal reflux disease, unspecified whether esophagitis present K21.9 Esophagitis presence: esophagitis presence not specified Time Spent (min) 22 Assessment & Plan Assessment & Plan (1) Systolic congestive heart failure: Code(s): I50.20 - Unspecified systolic (congestive) heart failure Category: Medical Qualifiers: Heart failure chronicity: chronic Qualified Code(s): I50.22 - Chronic systolic (congestive) heart failure (2) Essential hypertension: Code(s): I10 - Essential (primary) hypertension Category: Medical (3) Hyperlipidemia LDL goal <70: Code(s): E78.5 - Hyperlipidemia, unspecified Category: Medical (4) Diabetes mellitus with diabetic polyneuropathy, with long-term current use of insulin: Code(s): E11.42 - Type 2 diabetes mellitus with diabetic polyneuropathy; Z79.4 - information technology project manager (current) use of insulin Category: Medical Qualifiers: Diabetes mellitus type: type 2 Qualified Code(s): E11.42 - Type 2 diabetes mellitus with diabetic polyneuropathy; Z79.4 - skilled nursing (current) use of insulin (5) GERD (gastroesophageal reflux disease): Code(s): K21.9 - Gastro-esophageal reflux disease without esophagitis Category: Medical Qualifiers: Esophagitis presence: esophagitis presence not specified Qualified Code(s): K21.9 - Gastro-esophageal reflux disease without esophagitis Plan Plan 1. Diabetes Mellitus The patient's diabetes mellitus is managed with Jardiance, Felipicida, and Labdos, with a current A1c of 6.6%, indicating good control. 2. Diabetic Neuropathy Diabetic neuropathy is being treated with fergabalin, which has shown effectiveness after switching from gabapentin. 3. Hypertension Hypertension is controlled with losartan 100 mg daily, maintaining blood pressure within the target range. 4. Chronic Systolic Heart Failure Chronic systolic heart failure is managed with carvedilol, and a follow-up echocardiogram has been ordered to assess current status. Orders: Orders AMB Hemoglobin A1c Today E11.42 - Type 2 diabetes mellitus with diabetic polyneuropathy, Z79.4 - information technology project manager (current) use of insulin Lipid Panel Today E78.5 - Hyperlipidemia, unspecified Vitamin D 25-OH Total Today E55.9 - Vitamin D deficiency, unspecified Comprehensive [place]. Panel Fast Today I10 - Essential (primary) hypertension CA echo transthoracic complete Today I50.22 - Chronic systolic (congestive) heart failure Microalbumin, Random (w Creat) Today R80.9 - Proteinuria, unspecified Vitamin B12 and Folate Today E53.8 - Deficiency of other specified B group vitamins NT-proBNP Today I50.22 - Chronic systolic (congestive) heart failure Medications: Refilled pregabalin 50 mg PO BEDTIME 90 caps 0RF 90 days
[2025-05-27 08:15] VITALS: BP 130/70; PULSE 58; TEMP 36.3; O2SAT 99; BMI 31.3
== END 2025-05-27 08:41 | disposition home or self-care (01) ==
LOC: HO.HMCH 08:08
PROVIDERS: PCP Internal Medicine; Visit Provider Internal Medicine
DX: I11.0 Hypertensive heart disease with heart failure (principal); I50.22 Chronic systolic (congestive) heart failure; E11.42 Type 2 diabetes mellitus with diabetic polyneuropathy; Z79.4 Long term (current) use of insulin; E78.5 Hyperlipidemia, unspecified; K21.9 Gastro-esophageal reflux disease without esophagitis

== ENCOUNTER → 2025-05-27 08:07 | Outpatient (BNVA) | payer BC, SELFPAY | PROVIDERS: PCP Internal Medicine; Visit Provider Internal Medicine | DX: I11.0 Hypertensive heart disease with heart failure (principal); I50.22 Chronic systolic (congestive) heart failure; E78.5 Hyperlipidemia, unspecified; E11.42 Type 2 diabetes mellitus with diabetic polyneuropathy; K21.9 Gastro-esophageal reflux disease without esophagitis; Z79.4 Long term (current) use of insulin; Z79.899 Other long term (current) drug therapy; Z13.39 Encounter for screening examination for other mental health and behavioral disorders | CPT/HCPCS: 83036; 96127 ==

== ENCOUNTER → 2025-07-08 08:50 | Outpatient (REF) | payer BC, SELFPAY ==
--- OUTSIDE RECORDS SUMMARY | 2025-07-07 13:30 | XMS_ITS | Encounter Summary ---
Author Organization [facility] Address [address] [place] [address] Care Team Providers Care Train Braker Name Role Phone Mary Eubanks MD Primary Care Provider [phone] Reason for Visit * Imaging (Routine) - Authorized Specialty Diagnoses / Procedures Referred By Lailaac t Referred To Contact Diagnoses PAD (peripheral artery disease) ([facility] V24) Procedures Vascular US duplex lower extremity arteries bilateral with SELINA Joann Morales PA [address] [place] [address] Phone: tel: fax: [facility] Referral ID Status Reason Start Date Expiration Date V isits Requested Visits Authorized [id number] Authorized 01/03/2025 01/03/2026 1 1 Encounter Details Date Type Department Care Team (Latest Contact Info) Description 07/07/2025 1:30 PM EDT Ancillary Procedure [facility] [address] [place] [address] PAD (peripheral artery disease) ([facility] V24) Social History Tobacco Use Types Packs/Day Years Used Date Smoking Tobacco: Never Passive Smoke Exposure: Never Smokeless Tobacco: Never Alcohol Use Standard [...] for your loved ones. For example, child welfare specialist or elderly care for an older adult? [...] Date Recorded What is your living situation? Unrecognized valu e 09/22/2024 Interpersonal Safety Answer Date Record ed Physical Abuse Unrecognized value 09/22/2024 Verbal Abuse Unrecognized value 09/22/2024 Sex and Gender Information Value Date Recorded Sex Assigned at Male 09/17/2024 10:59 AM EST Legal Sex Male 10:45 AM EST Gender Identity Male 09/17/2024 10:59 AM EST Sexual Orientation Straight 09/17/2024 10 :59 AM EST documented as of this encounter Plan of Treatment Upcoming Encounters Date Type Department Care Team (Late st Contact Info) Description 07/11/2025 8:30 AM EDT Office Visit Vascular Surgery - [place] [address] [place] [address] Harry Taveras MD [address] [place] [address] 03/27/2026 8:30 AM EDT Office Visit Pulmonology - [place] [address] [facility] [address] [place] [address] Laura Foster MD 175 [facility] [address] [place] [address] documented as of this encounter Procedures Procedure Name Priority Date/Time Associated Diagnosis Comments VAS US DUPLEX LOWER EXT ARTERIES BILAT WITH SELINA Routine 07/07/2025 2:26 PM EDT PAD (peripheral artery disease) ([facility] V24) documented in this encounter Results * Vascular US duplex lower extremity arteries bilateral with SELINA (07/07/2025 2:26 PM EDT) Right arm BP 137 mmHg CV VAS LAB Left arm BP 148 mmHg CV VAS LAB Right toe pressure 106 mmHg CV [facility] LAB Right TBI 0.72 CV VAS LAB Left toe pressure 94 mmHg CV VAS LAB Left TBI 0.64 CV VAS LAB Right Dist External Iliac PSV 102 cm/s CV VAS LAB Right FINISH SAW OPERATOR prox sys PSV 118 cm/s CV VAS LAB Right profunda sys PSV 66 cm/s CV VAS LAB Right super femoral prox sys PSV 87 cm/s CV VAS LAB Right super femoral mid sys PSV 26 cm/s CV VAS LAB Right super femoral dist sys PSV 0 cm/s CV VAS LAB Right popliteal prox sys PSV 34 cm/s CV VAS LAB Right popliteal dist sys PSV 91 cm/s CV VAS LAB Right AT prox sys PSV 64 cm/s CV VAS LAB Right AT mid sys PSV 77 cm/s CV VAS LAB Right AT dist sys PSV 61 cm/s CV VAS LAB Right PT prox sys PSV 22 cm/s CV VAS LAB Right PT mid sys PSV 28 cm/s CV VAS LAB Right PT dist sys PSV 30 cm/s CV VAS LAB Right mid peroneal sys PSV 62 cm/s CV VAS LAB Left Dist External Iliac PSV 98 cm/s CV VAS LAB Left FINISH SAW OPERATOR prox sys PSV 68 cm/s CV VAS LAB Left profunda sys PSV 68 cm/s CV VAS LAB Left super femoral prox sys PSV 50 cm/s CV VAS LAB Left super femoral mid sys PSV 51 cm/s CV VAS LAB Left super femoral dist sys PSV 43 cm/s CV VAS LAB Left popliteal prox sys PSV 0 cm/s CV VAS LAB Left popliteal dist sys PSV 73 cm/s CV VAS LAB Left AT prox sys PSV 30 cm/s CV VAS LAB Left AT mid sys PSV 22 cm/s CV VAS LAB Left AT dist sys PSV 30 cm/s CV VAS LAB Left PT prox sys PSV 9 cm/s CV VAS LAB Left PT mid sys PSV 8 cm/s CV VAS LAB Left PT dist sys PSV 62 cm/s CV VAS LAB Left mid peroneal sys PSV 22 cm/s CV VAS LAB Left Prox External Iliac PSV 108 cm/s CV VAS LAB Right Prox External Iliac PSV 119 cm/s CV VAS LAB Anatomical Region Laterality Modality Vascular, Abdomen Ultrasound Narrative 07/07/2025 6:23 PM EDT Right: The SELINA could not be calculated due to noncompressible vessel. The toe brachial index (TBI) is 0.7 which is normal. Normal pulse volume waveform at the right ankle. Normal amplitude PPG waveform in the digit. There is calcific atherosclerotic palque in the right lower extremity arteries. The right common femoral artery is ectatic. The stent in the distal right SFA is occluded. There is a femoral-popliteal bypass which is patent. Three-vessel runoff at the right calf. Left: The SELINA could not be calculated due to noncompressible vessel. The toe brachial index (TBI) is 0.64 which is abnormal. Monophasic pulse volume waveform at the left ankle. Reduced amplitude PPG waveform in the digit. There is diffuse calcific atherosclerotic palque in the left lower extremity arteries. The stent in the left popliteal artery is occluded. The flow reconstitutes distally with collaterals. Three-vessel runoff at the left calf. Right SELINA Unable to obtain right SELINA due to uncompressible arteries. Right Lower Bypass Graft Graft 1: There is a patent femoral to popliteal graft present. (See below for measurements) Prox anast: 76 cm/s Prox bypass: 111 cm/s Mid bypass: 126 cm/s Distal bypass: 127 cm/s Distal anast: 77 cm/s Left SELINA Unable to obtain left SELINA due to uncompressible arteries. Right Lower Arterial Duplex The distal external iliac artery has triphasic flow. The common femoral artery has triphasic flow. The profunda femoris artery has triphasic flow. The proximal superficial femoral artery has biphasic flow. The mid superficial femoral artery has biphasic flow. Known the distal superficial femoral artery is stented and it is occluded. The proximal popliteal artery has biphasic flow. The distal popliteal artery has triphasic flow. The proximal anterior tibial artery has triphasic flow. The mid anterior tibial artery has triphasic flow. The distal anterior tibial artery has biphasic flow. The posterior tibial artery has biphasic flow. The mid peroneal artery has triphasic flow. Left Lower Arterial Duplex The distal external iliac artery has triphasic flow. The common femoral artery has triphasic flow. The profunda femoris artery has triphasic flow. The proximal superficial femoral artery has triphasic flow. The mid superficial femoral artery has triphasic flow. The distal superficial femoral artery has monophasic flow. Known the proximal popliteal artery is stented and it is occluded. The distal popliteal artery has monophasic flow. The anterior tibial artery has monophasic flow. The posterior tibial artery has monophasic flow. The mid peroneal artery has monophasic flow. Plow And Boring Machine Tender Details A stevens scale, color and doppler analysis ultrasound was performed. During the study longitudinal views were obtained. Continuous wave doppler, pulsed wave doppler and pulsed volume recording (PVR) was performed. Overall the study quality was poorly visualized. Study was technically difficult due to: acoustic shadowing. us Joann [facility] CV VASCULAR PROCEDURES Final Result documented in this encounter Visit Diagnoses Diagnosis PAD (peripheral artery disease) ([facility] V24) Unspecified peripheral vascular disease documented in this encounter Care Teams Train Braker Relationship Specialty Start Date End Date Mary Eubanks MD [address] [facility] , [address] [facility] Physician Associ D/B/A: [facility] YVONNE Solano PCP - General Internal Medicine 07/13/21 documented as of this encounter
--- NOTE | 2025-07-08 08:54 | CA_ITS ---
Transthoracic Echocardiogram Patient (Last, First, Middle): Ricardo Farr H Gender: M Date of : 1970 Age: 55 Procedure Date: 07/08/2025 Procedure Type: Transthoracic Echocardiogram Location: OP Height: 172.72 cm Weight: 92.99 kg BSA: 2.07 m2 Heart Rate: 58 bpm BP: 130 / 80 mmHg Chief Digital Media Officer: TO Referring MD: Mary Eubanks MD Commissioned Defence Force Officer: Jarret Butts MD Symptoms: I50.22 - Chronic systolic (congestive) heart failure Study Quality: Adequate w contrast ECG Rhythm: Bradycardia Conclusions: - 1. Low normal LV ejection fraction 50-55% with apical wall motion abnormality consistent with prior myocardial infarction 2. Mild calcific aortic and mitral valve changes noted with normal cardiac valvular Dopplers 3. Normal measured RV systolic pressure 4. No gross pericardial effusion Findings Procedure Information Contrast agent, definity, is being given per protocol without apparent complications. Left Ventricle Normal left ventricular cavity size. There is normal left ventricular wall thickness. The left ventricular systolic function is low normal. The visually estimated ejection fraction is between 50-55%. Spectral Doppler is indicative of a normal filling pattern. Wall Motion Rest Echo Findings The apical inferior segment is hypokinetic. The apex, apical septum, and mid anteroseptal segments are akinetic. All other scored wall segments showed normal motion. Right Ventricle Normal right ventricular cavity size. There is mild to moderately decreased right ventricular systolic function. Atria The left atrium is normal in size. There is no evidence of interatrial shunt. The right atrium is mildly dilated. Aortic Valve There is mild calcification of the aortic valve. There is no aortic valve stenosis. There is no aortic valve regurgitation. Mitral Valve There is mild anterior mitral leaflet thickening. There is mild mitral annular calcification. There is trace mitral valve regurgitation. There is no mitral valve stenosis. Pulmonic Valve The pulmonic valve was not well visualized. Tricuspid Valve Normal tricuspid valve structure. There is mild tricuspid valve regurgitation. The right ventricular systolic pressure is normal. The right ventricular systolic pressure is 26 mmHg. Normal right atrial pressure. There is no evidence of pulmonary hypertension. Great Vessels The pulmonary artery was not well visualized. There is no dilatation of the ascending aorta measuring 3.40 cm. Small plaque is seen in the sino tubular ridge. Venous The inferior vena cava is normal in size and collapses greater than 50% with inspiration. Pericardium/Pleural There is no evidence of pericardial effusion. Prior Study Comparison Changes noted compared to prior study dated: 09/20/2022. there is mild reduction LV ejection fraction Measurements 2D Linear Measurements IVSd: 1.00 0.6-0.9/0.6-1.0 cm LVIDd: 5.67 3.9-5.3/4.2-5.9 cm LVIDd Index: 2.74 2.4-3.2/2.2-3.1 cm/m2 LVIDs: 3.80 2.0-3.6 cm LVPWd: 0.90 0.7-1.1 cm LA Diam: 4.30 2.7-3.8/3.0-4.0 cm LAIDs Index: 2.08 1.5-2.3 cm/m2 LV Mass: 262.29 67-162/88-224 g LV Mass Index: 126.71 43-95/49-115 g/m2 LVOT Diam: 2.30 3.0+(-)1.3 cm 2D Systolic Function EF 4C: 44.00 >55% EF 2C: 55.80 >55% EF BiP: 50.40 >55% Mitral Valve MV Pk E: 0.59 MV PK A: 0.37 MV Decel Time: 221.00 E/A: 1.60 E'Lateral: 11.90 E'Medial: 8.38 E/E' Med: 7.00 E/E' Lat: 4.90 PHT: 65.00 MVA PHT: 3.38 Decel Stearns: 2.66 Aortic Valve AoV Pk Dimitrios: 1.50 AoV Mn Dimitrios: 1.03 AoV VTI: 0.29 AoV Pk Grad: 9.00 Aov Mn Grad: 5.00 DYLAN Cont.VTI: 3.09 LVOT LVOT Pk Dimitrios: 1.07 LVOT Mn Dimitrios: 0.76 LVOT VTI: 0.22 LVOT Pk Grad: 5.00 LVOT Mn Grad: 3.00 LVOT Diam: 2.30 LVOT Area: 4.15 Diastolic Function MV Pk E: 0.59 MV Pk A: 0.37 E/A: 1.60 E'Medial: 8.38 E/E' Med: 7.00 E' Laterial: 11.90 E/E' Lat: 4.90 Right Ventricle TAPSE (mm): 13.60 TVS' Dimitrios: 10.30 Tricuspid Valve TR Pk Dimitrios: 2.40 TR Pk Grad: 23.00 RA Press: 3.00 RVSP: 26.00 Great Vessels Aorta Sinus of Valsalva: 3.30 2.0-3.5 cm Ao Asc: 3.40 2.1-3.4 cm Updated in Other Vendor System with Status of Final Jarret Butts MD electronically signed on 07/08/2025 3:44:38 PM with status of Final
--- OUTSIDE RECORDS SUMMARY | 2025-07-08 09:28 | XMS_ITS | Encounter Summary ---
Author Organization [facility] Address [address] [place] [address] Care Team Providers Care Chronometer Assembler And Adjuster Name Role Phone Mary Eubanks MD Primary Care Provider [phone] Reason for Visit * Reason Onset Date Comments dme request 06/09/2025 Encounter Details Date Type Department Care Team (Late st Contact Info) Description 06/09/2025 Telephone Pulmonology - [place] [address] [address] Laura Foster MD 175 [facility] [address] [place] [address] Social History Tobacco Use Types Packs/Day Years [...] your loved ones. For example, early childhood director or elderly care for an older adult? [...] as of this encounter Progress Notes * Shana Giron - 06/09/2025 10:39 AM EDT Life supply fax received for cpap supplies - detailed written order Attached to encounter Nov 03/27/26 documented in this encounter Plan of Treatment Upcoming Encounters Date Type Department Care Team (Late st Contact Info) Description 07/11/2025 8:30 AM EDT Office Visit Vascular Surgery - [place] [address] [place] [address] Harry Taveras MD [address] [place] [address] 03/27/2026 8:30 AM EDT Office Visit Pulmonology - [place] 175 [facility] [address] [place] [phone] Laura Foster MD 175 [facility] [address] [place] [address] documented as of this encounter Visit Diagnoses Not on filedocumented in this encounter Care Teams Chronometer Assembler And Adjuster Relationship Specialty Start Date End Date Mary Eubanks MD 2 [facility] , [address] [facility] Physician Associ D/B/A: [facility] [place] PCP - General Internal Medicine 07/13/21 documented as of this encounter
--- OUTSIDE RECORDS SUMMARY | 2025-07-08 09:29 | XMS_ITS | Clinical Summary ---
Author Organization [address] [facility] Address [address] [place] [address] Phone Care Team Providers Care Referral Rn Name Role Phone Mary Eubanks MD Primary Care Provider [phone] Allergies No known active allergies Medications BABY ASPIRIN ORAL Take 81 mg by mouth 1 (one) time each day. Active blood-glucose meter kit 1 each by Not Applicable route 1 (one) time each day. 6 Active NON FORMULARY Inhale into the lungs. SMS-pressure 6-16 Active syr,ndl,ins,saf e 0.5mL,disp un (INSULIN SYRINGE-NEEDLE, DISPOS. MISC) 1 (one) time each day. USE WITH INSULIN PEN 1 Active OneTouch Ultra Test test strip 2 (two) times a day. USE TO CHECK BLOOD SUGAR 1 Active carvediloL (COREG) 6.25 mg tablet Take 1 tablet (6.25 mg total) by mouth 2 (two) times a day with meals. 1 Active empagliflozin (Jardiance) 10 mg tablet 1 tablet (10 mg total) 1 (one) time each day. 4 Active gabapentin (NEURONTIN) 100 mg capsule TAKE 2 CAPSULES IN THE MORNING AND 4 CAPSULES AT BEDTIME 1 Active glipiZIDE (GLUCOTROL XL) 2.5 mg 24 hr tablet 2 tablets (5 mg total) at bedtime. 4 Active insulin glargine (Lantus Solostar U-100 Insulin) 100 unit/mL (3 mL) injection pen 60 Units by subdermal route at bedtime. Patient took 30units 1/7 PM 1 Active losartan (COZAAR) 50 mg tablet Take 2 tablets (100 mg total) by mouth 1 (one) time each day. 1 Active metFORMIN (GLUCOPHAGE) 1,000 mg tablet Take 1 tablet (1,000 mg total) by mouth 2 (two) times a day with meals. 1 Active omeprazole (PriLOSEC) [address] capsule Take 1 capsule (20 mg total) by mouth at bedtime. 1 Active rosuvastatin (CRESTOR) 20 mg tablet Take 1 tablet (20 mg total) by mouth 1 (one) time each day. 1 Active traZODone (DESYREL) 50 mg tablet Take 1 tablet (50 mg total) by mouth at bedtime. Active pregabalin (LYRICA) 50 mg capsule Take 1 capsule (50 mg total) by mouth at bedtime. Active oxyCODONE (ROXICODONE) 10 mg immediate release tabletIndicatio ns:PAD (peripheral artery disease) ([facility] V24),S/P vascular surgery Take 1 tablet (10 mg total) by mouth every 4 (four) hours if needed for severe pain. Max Daily Amount: 60 mg 15 tablet 5 Active Active Problems Problem Noted Date Diagnosed Date S/P vascular surgery 09/22/2024 PAD (peripheral artery disease) ([facility] V24) Diabetes mellitus ([facility] V24, [facility] V28) 11/2021 Bilateral carpal tunnel syndrome 04/25/2021 Overview (07/29/2024): Status post nerve conduction studies April 2021. No evidence of superimposed C5-T1 radiculopathy affecting either arm Obesity (BMI 35.0-39.9 without comorbidity) 06/16 Coronary artery disease 02/22/2016 Overview (07/29/2024): - Discovered on preoperative risk assessment stress test prior to vascular surgery -status post CABG in February 2016 with a NUR to the LAD, and veins to the ramus and OM - Exercise nuclear stress test performed for symptoms of chest discomfort and also preop for another vascular surgery in November 2021- He was able to walk for 6 minutes, achieving 85% of his MPHR, a 7 MET workload, without symptoms. 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 Darcy Agee 08/11/2013 GERD (gastroesophageal reflux disease) 2 Primary [...] Encounters Date Type Department Care Team Description 07/07/2025 1:30 PM EDT Ancillary Procedure [facility] [address] [place] [address] PAD (peripheral artery disease) ([facility] V24) 06/09/2025 Telephone Pulmonology - [place] [address] [place] [address] Laura Foster MD from Last 3 Months Immunizations Immunization Administration Dates Next Due Hepatitis B (Ahlasrp-R-Kgbcj , Recombivax HB-Adult) 19yo and older 03/21/2005,10/22/2004,09/19/2004 [...] KNEE ARTHROSCOPY W/ DEBRIDEMENT , 2006 PROCEDURE: AR ARTHRS KNEE DEBRIDEMENT/SHAVING ARTCLR CRTLG; COMMENT: Left and right TOTAL KNEE ARTHROPLASTY 08/15/2011 PROCEDURE: AR ARTHRP KNE CONDYLE&PLATU MEDIAL&LAT COMPARTMENTS; COMMENT: right OTHER SURGICAL HISTORY 02/14/2016 PROCEDURE: AR CABG W/ARTERIAL GRAFT THREE ARTERIAL GRAFTS; COMMENT: Dr. Barksdale OTHER SURGICAL HISTORY 08/05/2023 PROCEDURE: AR REVSC OPN/PRG FEM/POP W/ANGIOPLASTY UNI OTHER SURGICAL HISTORY 08/05/2023 PROCEDURE: AR REVASC INTRAVASC LITHOTRIPSY OTHER SURGICAL HISTORY 08/05/2023 PROCEDURE: ULTRASOUND GUIDANCE FOR VASCULAR AC OTHER SURGICAL HISTORY 03/30/2024 PROCEDURE: AR SLCTV CATHJ 3RD+ ORD SLCTV ABDL PEL/LXTR BRNCH OTHER SURGICAL HISTORY 03/30/2024 PROCEDURE: AR SLCTV CATHJ EA 2ND+ ORD ABDL PEL/LXTR [...] (BMI 35.0-39.9 wi thout comorbidity) Diabetes mellitus ([facility] V 24, [facility] V28) DX:Diabetes mellitus ([facility]) Dyslipidemia DX:Dyslipidemia Neuropathy DX:Neuropathy TOBY on CPAP DX:TOBY on CPAP Hyperlipidemia Peripheral vascular disease ([facility] V24) Heart disease Myocardial infarction ([facility] V24, [facility] V28) Family History Medical History Relation Name Comments [...] for your loved ones. For example, child caregiver or elderly care for an older adult? [...] Sign Reading Time Taken Comments Blood Pressure 136/66 03/24/2025 10:16 AM EDT Pulse 63 03/24/2025 10:16 AM EDT Temperature 35.8 C (96.5 F) 03/24/2025 8:05 AM EDT Respiratory Rate 16 03/24/2025 10:16 AM EDT Oxygen Saturation 99% 03/24/2025 10:16 AM EDT Inhaled Oxygen Concentration - - Weight 95.7 kg (211 lb) 03/24/2025 10:16 AM EDT Height 172.7 cm (5' 8 ) 03/24/2025 10:16 AM EDT Body Mass Index 32.08 03/24/2025 10:16 AM EDT Plan of Treatment Upcoming Encounters Date Type Department Care Team (Late st Contact Info) Description 07/11/2025 8:30 AM EDT Office Visit Vascular Surgery - [place] [address] [facility] [address] [place] [address] Harry Taveras MD [address] [place] [address] 03/27/2026 8:30 AM EDT Office Visit Pulmonology - [place] [address] [facility] [address] [place] [address] Laura Foster MD [address] [facility] [address] [place] [address] Health Maintenance Due Date Last Done Comments Colorectal Cancer Screening: Colonoscopy 1970 Diabetes: Annual Foot Exam 1980 Diabetes: Annual Retina Eye Exam 1980 RSV Immunization Adult Patients (1 - Risk 50-74 years 1-dose series) 2020 Zoster Vaccines (1 of 2) 2020 HIV Screening 08/24/2022 Hepatitis C Screening 08/24/2022 Diabetes: Annual Urine Albumin-Creatinine Ratio (uACR) 08/31/2022 04/17/2020 Diabetes: Blood Sugar Control Test (HGBA1C) 08/31/2022 10/06/2020 Depression Screening 09/15/2024 Cholesterol Screening (Lipid Panel) 04/03/2025 04/03/2020 Influenza Vaccine (#1) 2025 4, 06/17/2023, 06/30/2021, Additional history exists Social Influencers of Health Screening 09/22/2025 09/22/2024 Diabetes: Annual GFR (Glomerular Filtration Rate) 09/25/2025 09/25/2024, 09/24/2024, 09/23/2024, Additional history exists Hypertension/CHF/CAD Annual BMP Blood Test 09/25/2025 09/25/2024, 09/24/2024, 09/23/2024, Additional history exists DTaP,Tdap,and Td Vaccines (3 - Td or Tdap) 10/26/2034 10/26/2024, 02/14/2011 Hepatitis B Vaccines Completed 03/21/2005, 10/22/2004, 09/19/2004 MMR Vaccines Aged Out 03/27/2011, 02/27/2011 No lo nger eligible based on patient's age to complete this topic COVID-19 Vaccine Completed 07/09/2024, 11/2022, 05/22/2022, Additional history exists Pneumococcal Vaccine: 50+ Years Completed 10/26/2024, 03/04/2016, 07/26/2011 HIB Vaccines Aged Out No longer eligi ble based on patient's age to complete this topic HPV Vaccines Aged Out No longer eligi ble based on patient's age to complete this topic Hepatitis A Vaccines Aged Out No long er eligible based on patient's age to complete this topic IPV Vaccines Aged Out No longer eligi ble based on patient's age to complete this topic Meningococcal ACWY Vaccine Aged Out N o longer eligible based on patient's age to complete this topic Meningococcal B Vaccine Aged Out No l onger eligible based on patient's age to complete this topic RSV Immunization Patients Under 20 months Aged Out No longer eligible based on patient's age to complete this topic Varicella Vaccines Aged Out No longer eligible based on patient's age to complete this topic Medical Devices Implanted Type Area Paper Folder Device Identifier Shelf Expiration Date Model / Serial / Lot Hemostat Absorb Surgicel 2x4in Fibrillar - Sn/A - [id number] Implanted:Qty: 1 on 09/22/2024 by Harry Taveras MD at [facility] Hemostasis Right: Leg [employer] 09/14/2026 1962 / N/A / [id number] Sealant Fibrin Vistaseal 10ml - [id number] - [id number] Implanted:Qty: 1 on 09/22/2024 by Harry Taveras MD at [facility] Hemostasis Right: Leg [employer] 05/19/2026 [facility] / [id number] / [id number] Joints Knee Joints Knee Right: Knee Stents Stents Bilatera l: Leg Procedures Procedure Name Priority Date/Time Associated Diagnosis Comments VAS US DUPLEX LOWER EXT ARTERIES BILAT WITH SELINA Routine 07/07/2025 2:26 PM EDT PAD (peripheral artery disease) ([facility] V24) BASIC METABOLIC PANEL Routine 09/25/2024 6:31 AM EST HEMOGLOBIN A1C Routine 10/06/2020 HM URINE ALBUMIN [...] PSV 102 cm/s CV VAS LAB Right [employer] WORKER prox sys PSV 118 cm/s CV VAS [...] PSV 98 cm/s CV VAS LAB Left [employer] WORKER prox sys PSV 68 cm/s CV VAS [...] The mid peroneal artery has monophasic flow. 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 During the study longitudinal views were obtained. Continuous wave doppler, pulsed wave doppler and pulsed volume recording (PVR) was performed. Overall the study quality was poorly visualized. Study was technically difficult due to: acoustic shadowing. us oJann [facility] CV VASCULAR PROCEDURES Final Result * (ABNORMAL) Basic metabolic panel (09/25/2024 6:31 AM EST) Sodium 137 133 - 145 mmol/L LAB CHEMISTRY METHOD 09/25/2024 7:50 AM EST [facility] Potassium 3.8 3.5 - 5.5 mmol/L LAB CHEMISTRY METHOD 09/25/2024 7:50 AM [facility] Chloride 104 96 - 110 mmol/L LAB CHEMISTRY METHOD 09/25/2024 7:50 AM [facility] CO2 27 21 - 32 mmol/L LAB CHEMISTRY METHOD 09/25/2024 7:50 AM [facility] Anion Gap 6 3 - 11 LAB CHEMISTRY METHOD 09/25/2024 7:50 AM [facility] Glucose 108(H) 70 - 100 mg/dL LAB CHEMISTRY METHOD 09/25/2024 7:50 AM [facility] BUN 17 5 - 25 mg/dL LAB CHEMISTRY METHOD 09/25/2024 7:50 AM [facility] Creatinine 0.74 0.70 - 1.30 mg/dL LAB CHEMISTRY METHOD 09/25/2024 7:50 AM [facility] eGFR 108 >=60 mL/min/1. 73m2 LAB CHEMISTRY METHOD 09/25/2024 7:50 AM [facility] Comment:Calculation based on the Chronic Kidney Disease Epidemiology Collaboration (CKD-EPI) equation refit without adjustment for race. BUN/Creatinine Ratio 23.0 LAB CHEMISTRY METHOD 09/25/2024 7:50 AM [facility] Calcium 8.6 8.5 - 10.5 mg/dL LAB CHEMISTRY METHOD 09/25/2024 7:50 AM [facility] Blood Venous blood specimen / Unknown Venipuncture / Unknown 09/25/2024 6:31 AM EST 09/25/2024 7:11 AM EST us Nelly [facility] LAB BLOOD ORDERABLES Final Res ult [facility] [address] [place] [address], * Hemoglobin A1c (10/06/2020) Hemoglobin A1C 6.5 <=6.5 % Blood Venous blood specimen / Unknown Result [facility] Provider LAB BLOOD ORDERABLES Jackie l Result * HM Urine Albumin Creatinine Ratio (04/17/2020) [facility]in Creatinine Ratio Abstracted Result [facility] Provider HEALTH MAINTENANCE Final Result * (ABNORMAL) Lipid panel (04/03/2020) Pathologist [facility] LDL/HDL Ratio 5(A) 0 - 4 Triglycerides 454(A) 0 - 150 mg/dL Cholesterol 150 0 - 200 mg/dL HDL 33(A) >=40 mg/dL LDL Cholesterol 27 0 - 100 mg/dL Blood Venous blood specimen / Unknown Result [facility] Provider LAB BLOOD ORDERABLES Jackie l Result from Last 3 Months or Most Recently Relevant to Health Maintenance Insurance [facility] Advance Directives * Full Code - Default [...] currently active code status orders. Care Teams Referral Rn Relationship Specialty Start Date End Date Mary Eubanks MD [address] [facility] , [address] [facility] D/B/A: [facility] [place], [place] PCP - General Internal Medicine 07/13/21
== END ==
LOC: HO.CARD 08:50
PROVIDERS: PCP Internal Medicine; Visit Provider Internal Medicine
DX: I50.22 Chronic systolic (congestive) heart failure (principal)
CPT/HCPCS: 93306; Q9957

== ENCOUNTER → 2025-07-08 08:54 | Outpatient (BNV) | payer BC, SELFPAY | PROVIDERS: PCP Internal Medicine; Visit Provider Internal Medicine Cardiovascular Disease | DX: I35.8 Other nonrheumatic aortic valve disorders (principal); I34.81 Nonrheumatic mitral (valve) annulus calcification | CPT/HCPCS: 93306 ==